=== PATIENT | male | born 1935 | race Caucasian/White ===

== ENCOUNTER 2017-07-25 10:25 | Observation (INO) | payer OTHER, MEDICARE ==
--- OUTSIDE RECORDS SUMMARY | 2017-07-25 10:28 | XMS REPORT | Clinical Summary ---
:1935 Author Organization [facility] Address [address] [place] [address] Care Team Providers Name Role Phone Asked, No Pcp Primary Care Provider Unavailable Allergies No Known Allergies Current Medications Prescription Sig. Disp. Refills Start Date End Date Status aspirin (ECOTRIN) 81 MG Take 81 mg by mouth Active enteric coated tablet daily. FOLIC ACID/MV,FE,MIN Take 1 tablet by Active (CENTRUM ORAL) mouth daily. captopril (CAPOTEN) 25 MG Take 25 mg by mouth Active tablet 2 (two) times a day. isosorbide dinitrate SR Take 40 mg by mouth Active (DILATRATE-SR) 40 mg CR daily. capsule FLUoxetine (PROzac) 20 MG Take 20 mg by mouth Active capsule nightly. furosemide (LASIX) 40 MG Take 40 mg by mouth Active tablet daily. amIODarone (PACERONE) 200 Take 100 mg by Active MG tablet mouth nightly. tiotropium (SPIRIVA) 18 Place 1 capsule Active mcg per inhalation into inhaler and capsule inhale once daily. 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 07/15/2017 [id number] / Implanted: Qty: 1 on 11/05/2015 by Minor Fuentes MD DEFIB [id number] / [id number] Defibrillator, Pacemaker Results Not on fileafter 07/24/2016 Insurance Payer Benefit Plan / Group Subscriber ID Type Phone Address AARP AARP SUPPLEMENT xxxxxxxxxxx Commercial MEDICARE MEDICARE PART A AND B xxxxxxxxxx Medicare [place], [place] [phone] [place], [place] [phone]
[2017-07-25 11:23] LABS: Absolute Lymphocytes (CBC) 0.8 K/uL (0.7-4.9); Absolute Monocytes 1.4 K/uL (0.1-1.3); Basophils % 0.6 % (0-1.3); Eosinophils % 2.7 % (0-4.4); Hematocrit 39.9 % (39.6-49.0); Lymphocytes % 8.8 % (15.3-44.8); MCH 30.4 pg (27.0-35.0); MCV 91.2 fL (80-100); MPV 8.1 fL (7.6-11.3); Monocytes % 15.1 % (3.3-12.3); RBC Red Blood Cell Count 4.37 M/uL (4.33-5.43)
[2017-07-25 11:29] LABS: Protime INR 1.16
--- NOTE | 2017-07-25 11:33 | RAD REPORT ---
EXAM DESCRIPTION: RAD - Chest Single View - 07/25/2017 11:20 am CLINICAL HISTORY: Chest pain. COMPARISON: 08/31/2016 FINDINGS: Portable technique limits examination quality. The lungs are grossly clear. The heart is moderately enlarged in size with a multilead pacer/ defibri llator device present. No displaced fractures. IMPRESSION: No acute intrathoracic process suspected.
[2017-07-25 11:35] LABS: Potassium 3.8 mEq/L (3.6-5.0)
[2017-07-25] MEDS ORDERED: FAMOTIDINE 20 MG/2 ML VIAL IV ONE (11:40)
[2017-07-25] MEDS ORDERED: NA CHLORIDE 0.9% 1,000 ML ONE (11:40)
[2017-07-25 11:42] LABS: Albumin 4.1 g/dL (3.2-5.5); Bilirubin Direct 0.3 mg/dL (0-0.2); Bilirubin Total 1.9 mg/dL (0.3-1.2); Protein, Total 6.8 g/dL (6.0-8.3)
[2017-07-25 11:53] LABS: Urine Blood NEGATIVE (NEG); Urine Glucose NEGATIVE (NEG); Urine Protein NEGATIVE (NEG); Urine Specific Gravity 1.015 (1.005-1.030); Urine pH 7.5 (5.0-7.0)
--- NOTE | 2017-07-25 11:56 | RAD REPORT ---
EXAM DESCRIPTION: CT - Head Brain Wo Cont - 07/25/2017 11:49 am CLINICAL HISTORY: Altered consciousness. COMPARISON: 08/31/2016, 07/18/2016 TECHNIQUE: All CT scans are performed using dose optimization technique as appropriate and may inclu de automated exposure control or mA/KV adjustment according to patient size. FINDINGS: No intracranial hemorrhage, hydrocephalus or extra-axial fluid collection.Mild generalized brain atrophy is present with mild periventricular and deep white matter chronic microvascular ische carol changes.No areas of brain edema or evidence of midline shift. The paranasal sinuses and mastoids are clear. The calvarium is intact. IMPRESSION: No acute intracranial abnormality.
--- NOTE | 2017-07-25 12:05 | ER ---
Nurse's Notes [facility] Name: Jakob Romero Age: 82 yrs Sex: Male : 1935 Arrival Date: 07/25/2017 Time: 10:31 Bed 24 Private MD: Diagnosis: Weakness;Syncope and collapse-near;Cardiomegaly;Dizziness and giddiness;Altered mental status, unspecified;Chest pain, unspecified Presentation: 07/25 10:33 Presenting complaint: states: "dr. henning told us to come over here because he is tw2 having chest pain and has a pacemaker and defibrillator". Transition of care: patient was not received from another setting of care. Onset of symptoms was July 25, 2017. Care prior to arrival: None. 10:33 Method Of Arrival: Wheelchair tw2 10:33 Acuity: NETTE 3 tw2 Triage Assessment: 10:36 General: Appears in no apparent distress. well groomed, Behavior is calm, cooperative, tw2 appropriate for age. Pain: Denies pain. Cardiovascular: Reports chest pain, when breathing deep, and hurt with every breath last night. Historical: - Allergies: 10:39 No Known Allergies; tw2 - Home Meds: 10:39 amiodarone 200 mg Oral tab 1 tab once daily [Active]; aspirin 81 mg Oral chew 1 tab tw2 once daily [Active]; captopril 25 mg Oral tab 1 tab 2 times per day [Active]; fluoxetine 20 mg Oral cap 1 cap once daily [Active]; furosemide 40 mg Oral tab 1 tab once daily [Active]; isosorbide dinitrate 40 mg Oral TbER 1 tab once daily [Active]; metoprolol succinate 25 mg Oral Tb24 1 tab once daily [Active]; potassium chloride 20 mEq Oral TbTQ 1 tab 2 times per day [Active]; Sprivia 18 mcg daily [Active]; - PMHx: 10:39 Prostate Cancer; Myocardial infarction; Hypertension; Depression; COPD; Angina; tw2 - PSHx: 10:39 lung, lower right lobectomy; sebatous cysts; prostate; Tonsillectomy; defibrilator and tw2 pace maker; lower right lobe of lung removed; Heart stents; - Immunization history:: Adult Immunizations up to date. - Social history:: Smoking status: Patient/guardian denies using tobacco. - Family history:: not pertinent. Screenin:53 Abuse screen: Denies threats or abuse. Denies injuries from another. Nutritional aj1 screening: No deficits noted. Tuberculosis screening: No symptoms or risk factors identified. Assessment: 10:53 General: Appears in no apparent distress. comfortable, Behavior is calm, cooperative, aj1 appropriate for age. Pain: Complains of pain in anterior aspect of left upper chest, mid-sternal area and left breast Pain does not radiate. Pain currently is 0 out of 10 on a pain scale. at worst was 10 out of 10 on a pain scale. Quality of pain is described as sharp, Pain began last night at 2300 Is intermittent, Aggravated by deep breathing. Neuro: Level of Consciousness is awake, alert, obeys commands, Oriented to person, place, time, situation, Speech is normal, Facial symmetry appears normal. Cardiovascular: Reports chest pain, diaphoresis, fatigue, nausea, dizziness, these symptoms has currently resolved Heart tones S1 S2 present Patient's skin is warm and dry. Rhythm is regular Chest pain is described as resolved, severe last night. quality is sharp, is located in left anterior chest wall substernal area began 2300 last night is aggravated by breathing. Respiratory: Airway is patent Respiratory effort is even, unlabored, Respiratory pattern is regular, symmetrical, Breath sounds are clear bilaterally. Denies shortness of breath. GI: No signs and/or symptoms were reported involving the gastrointestinal system. : No signs and/or symptoms were reported regarding the genitourinary system. EENT: No signs and/or symptoms were reported regarding the EENT system. Derm: No signs and/or symptoms reported regarding the dermatologic system. Skin is pink, warm \\T\\ dry. normal. Musculoskeletal: No signs and/or symptoms reported regarding the musculoskeletal system. Circulation, motion, and sensation intact. 11:46 Reassessment: Patient appears in no apparent distress at this time. No changes from aj1 previously documented assessment. Patient and/or family updated on plan of care and expected duration. Pain level reassessed. Patient is alert, oriented x 3, equal unlabored respirations, skin warm/dry/pink. 11:47 Reassessment: Patient transported to CT via stretcher. aj1 12:45 Reassessment: Patient and/or family updated on plan of care and expected duration. Pain aj1 level reassessed. General: Appears in no apparent distress. comfortable, Behavior is calm, appropriate for age. Pain: Denies pain. Neuro: Level of Consciousness is awake, alert, obeys commands, Speech is normal, Facial symmetry appears normal. Cardiovascular: Patient's skin is warm and dry. Rhythm is regular. Respiratory: Airway is patent Respiratory effort is even, unlabored, Respiratory pattern is regular, symmetrical. Derm: Skin is pink, warm \\T\\ dry. normal. Musculoskeletal: Circulation, motion, and sensation intact. 12:50 Reassessment: Echo at bedside. aj1 Vital Signs: 10:36 BP 103 / 57; Pulse 76; Resp 17; Temp 98.7(O); Pulse Ox 97% on R/A; Weight 95.25 kg (R); tw2 Height 6 ft. 1 in. (185.42 cm); Pain 0/10; 11:46 BP 118 / 68; Pulse 72; Resp 18; Pulse Ox 97% on R/A; aj1 12:45 BP 112 / 75; Pulse 70; Resp 18; Pulse Ox 97% on R/A; aj1 10:36 Body Mass Index 27.71 (95.25 kg, 185.42 cm) tw2 ED Course: 10:31 Patient arrived in ED. mr 10:35 Triage completed. tw2 10:37 Arm band placed on. tw2 10:39 EKG completed in triage. Results shown to . tw2 10:47 Mahnaz Renteria, RN is Primary Nurse. aj1 10:51 Gabriel Guzman MD is Attending Physician. [facility] 10:53 Patient has correct armband on for positive identification. Bed in low position. Call aj1 light in reach. Side rails up X 1. photograph enlarger on. Pulse ox on. NIBP on. 10:53 No provider procedures requiring assistance completed. Patient maintains SpO2 aj1 saturation greater than 95% on room air. 11:15 Initial lab(s) drawn, by me, sent to lab. Inserted saline lock: 22 gauge in left aj1 antecubital area, using aseptic technique. Blood collected. 11:20 XRAY Chest (1 view) In Process Unspecified. EDMS 11:49 CT Head Brain wo Cont In Process Unspecified. EDMS 11:49 CT completed. Patient tolerated procedure well. Patient moved to CT via stretcher. Patient moved back from CT. 12:03 Leonard Henning MD is Hospitalizing Provider. nestor 12:52 Echocardiogram with Doppler done by commercial hvac technician. tc Administered Medications: 11:45 Drug: Pepcid 20 mg Route: IVP; Site: left antecubital; aj1 11:46 Drug: NS 0.9% 1000 ml Route: IV; Rate: 75 ml/hr; Site: left antecubital; aj1 12:29 Drug: Lovenox 90 mg Route: Sub-Q; Site: right lower abdomen; aj1 14:42 Drug: Aspirin 81 mg Route: PO; tl3 Outcome: 12:04 Decision to Hospitalize by Provider. nestor 15:01 Patient left the ED. tl3 Signatures: Dispatcher [employer] EDMS Mahnaz Renteria, RN RN aj1 Gabriel Guzman MD MD cha Rivera, Maria mr Jones, Antonia Baez, merchandise stocker EKG Ttc Bertha Galeas RN RN tw2 Tasneem Gonzalez RN RN tl3
--- NOTE | 2017-07-25 12:05 | EDPHYS ---
Physician Documentation [facility] Name: Jakob Romero Age: 82 yrs Sex: Male : 1935 Arrival Date: 07/25/2017 Time: 10:31 Bed 24 Private MD: ED Physician Gabriel Guzman HPI: 07/25 11:19 This 82 yrs old Male presents to ER via Wheelchair with complaints of Chest nestor Pain, Dizziness, confused. 11:21 The patient or guardian reports chest pain that is located primarily in the substernal nestor area. Onset: just prior to arrival, this morning. The pain does not radiate. Associated signs and symptoms: Pertinent positives: dizziness, lightheadedness, near-syncope. The chest pain is described as a pressure. Duration: The patient or guardian reports multiple episodes, with no pattern. Modifying factors: The symptoms are alleviated by nothing. the symptoms are aggravated by nothing. Severity of pain: At its worst the pain was mild in the emergency department the pain is unchanged. Historical: - Allergies: 10:39 No Known Allergies; tw2 - Home Meds: 10:39 amiodarone 200 mg Oral tab 1 tab once daily [Active]; aspirin 81 mg Oral chew 1 tab tw2 once daily [Active]; captopril 25 mg Oral tab 1 tab 2 times per day [Active]; fluoxetine 20 mg Oral cap 1 cap once daily [Active]; furosemide 40 mg Oral tab 1 tab once daily [Active]; isosorbide dinitrate 40 mg Oral TbER 1 tab once daily [Active]; metoprolol succinate 25 mg Oral Tb24 1 tab once daily [Active]; potassium chloride 20 mEq Oral TbTQ 1 tab 2 times per day [Active]; Sprivia 18 mcg daily [Active]; - PMHx: 10:39 Prostate Cancer; Myocardial infarction; Hypertension; Depression; COPD; Angina; tw2 - PSHx: 10:39 lung, lower right lobectomy; sebatous cysts; prostate; Tonsillectomy; defibrilator and tw2 pace maker; lower right lobe of lung removed; Heart stents; - Immunization history:: Adult Immunizations up to date. - Social history:: Smoking status: Patient/guardian denies using tobacco. - Family history:: not pertinent. ROS: 11:21 Constitutional: Negative for fever, chills, and weight loss, Eyes: Negative for injury, nestor pain, redness, and discharge, ENT: Negative for injury, pain, and discharge, Neck: Negative for injury, pain, and swelling, Respiratory: Negative for shortness of breath, cough, wheezing, and pleuritic chest pain, Abdomen/GI: Negative for abdominal pain, nausea, vomiting, diarrhea, and constipation, Back: Negative for injury and pain, : Negative for injury, bleeding, discharge, and swelling, MS/Extremity: Negative for injury and deformity, Skin: Negative for injury, rash, and discoloration, Psych: Negative for depression, anxiety, suicide ideation, homicidal ideation, and hallucinations, Allergy/Immunology: Negative for hives, rash, and allergies, Endocrine: Negative for neck swelling, polydipsia, polyuria, polyphagia, and marked weight changes, Hematologic/Lymphatic: Negative for swollen nodes, abnormal bleeding, and unusual bruising. 11:21 Cardiovascular: Positive for chest pain. 11:21 Neuro: Positive for altered mental status, dizziness, weakness. Exam: 11:21 Constitutional: This is a well developed, well nourished patient who is awake, alert, nestor and in no acute distress. Head/Face: Normocephalic, atraumatic. Eyes: Pupils equal round and reactive to light, extra-ocular motions intact. Lids and lashes normal. Conjunctiva and sclera are non-icteric and not injected. Cornea within normal limits. Periorbital areas with no swelling, redness, or edema. ENT: Nares patent. No nasal discharge, no septal abnormalities noted. Tympanic membranes are normal and external auditory canals are clear. Oropharynx with no redness, swelling, or masses, exudates, or evidence of obstruction, uvula midline. Mucous membranes moist. Neck: Trachea midline, no thyromegaly or masses palpated, and no cervical lymphadenopathy. Supple, full range of motion without nuchal rigidity, or vertebral point tenderness. No Meningismus. Cardiovascular: Regular rate and rhythm with a normal S1 and S2. No gallops, murmurs, or rubs. Normal PMI, no JVD. No pulse deficits. Respiratory: Lungs have equal breath sounds bilaterally, clear to auscultation and percussion. No rales, rhonchi or wheezes noted. No increased work of breathing, no retractions or nasal flaring. Abdomen/GI: Soft, non-tender, with normal bowel sounds. No distension or tympany. No guarding or rebound. No evidence of tenderness throughout. Back: No spinal tenderness. No costovertebral tenderness. Full range of motion. Male : Normal genitalia with no discharge or lesions. Skin: Warm, dry with normal turgor. Normal color with no rashes, no lesions, and no evidence of cellulitis. MS/ Extremity: Pulses equal, no cyanosis. Neurovascular intact. Full, normal range of motion. Neuro: Awake and alert, GCS 15, oriented to person, place, time, and situation. Cranial nerves II-XII grossly intact. Motor strength 5/5 in all extremities. Sensory grossly intact. Cerebellar exam normal. Normal gait. Psych: Awake, alert, with orientation to person, place and time. Behavior, mood, and affect are within normal limits. 11:21 Chest/axilla: Inspection: normal, Palpation: tenderness, that is mild, of the left clavicle and anterior aspect of left upper chest. 11:23 Musculoskeletal/extremity: DVT Exam: No signs of deep vein thrombosis. no pain, no nestor swelling, no tenderness, negative Homans' sign noted on exam, no appreciated bluish discoloration, no erythema, no increased warmth. Vital Signs: 10:36 BP 103 / 57; Pulse 76; Resp 17; Temp 98.7(O); Pulse Ox 97% on R/A; Weight 95.25 kg (R); tw2 Height 6 ft. 1 in. (185.42 cm); Pain 0/10; 11:46 BP 118 / 68; Pulse 72; Resp 18; Pulse Ox 97% on R/A; aj1 12:45 BP 112 / 75; Pulse 70; Resp 18; Pulse Ox 97% on R/A; aj1 10:36 Body Mass Index 27.71 (95.25 kg, 185.42 cm) tw2 MDM: 10:51 Patient medically screened. [facility] 11:23 Data reviewed: vital signs, nurses notes, lab test result(s), EKG, radiologic studies, [facility] CT scan, ultrasound. 07/25 10:57 Order name: Basic Metabolic Panel; Complete Time: 12:02 aj07/25 10:57 Order name: BNP; Complete Time: 12:02 aj07/25 10:57 Order name: CBC with Diff; Complete Time: 14:27 [facility] 07/25 10:57 Order name: Ckmb; Complete Time: 12:02 [facility] 07/25 10:57 Order name: CPK; Complete Time: 12:02 [facility] 07/25 10:57 Order name: LFT's; Complete Time: 12:02 [facility] 07/25 10:57 Order name: Magnesium; Complete Time: 12:02 [facility] 07/25 10:57 Order name: PT-INR; Complete Time: 11:36 [facility] 07/25 10:57 Order name: Ptt, Activated; Complete Time: 11:36 [facility] 07/25 10:57 Order name: Troponin (emerg Dept Use Only); Complete Time: 12:02 [facility] 07/25 11:20 Order name: Urine Culture [facility] 07/25 11:21 Order name: Blood Culture Adult (2) [facility] 07/25 11:24 Order name: CBC Smear Scan; Complete Time: 14:27 [facility] 07/25 11:44 Order name: Urine Dipstick--Ancillary (enter results) 07/25 10:57 Order name: XRAY Chest (1 view); Complete Time: 11:36 [facility] 07/25 10:57 Order name: EKG; Complete Time: 10:58 [facility] 07/25 10:57 Order name: Cardiac monitoring; Complete Time: 10:57 [facility] 07/25 10:57 Order name: EKG - Nurse/Tech; Complete Time: 10:57 [facility] 07/25 10:57 Order name: IV Saline Lock; Complete Time: 11:15 [facility] 07/25 11:20 Order name: CT Head Brain wo Cont; Complete Time: 12:02 [facility] 07/25 12:03 Order name: Echo w/ Doppler [facility] 07/25 12:16 Order name: CONS Physician Consult [facility] 07/25 12:16 Order name: Troponin I [facility] 07/25 12:16 Order name: Troponin I [facility] 07/25 12:16 Order name: 2 GM Sodium; Complete Time: 14:42 [facility] 07/25 12:16 Order name: EKG Electrocardiogram [facility] 07/25 10:57 Order name: Labs collected and sent; Complete Time: 11:15 [facility] 07/25 10:57 Order name: O2 Per Protocol; Complete Time: 10:58 [facility] 07/25 10:57 Order name: O2 Sat Monitoring; Complete Time: 10:58 07/25 10:57 Order name: Urine Dipstick-Ancillary (obtain specimen); Complete Time: 11:48 Administered Medications: 11:45 Drug: Pepcid 20 mg Route: IVP; Site: left antecubital; aj1 11:46 Drug: NS 0.9% 1000 ml Route: IV; Rate: 75 ml/hr; Site: left antecubital; aj1 12:29 Drug: Lovenox 90 mg Route: Sub-Q; Site: right lower abdomen; aj1 14:42 Drug: Aspirin 81 mg Route: PO; tl3 Disposition: 07/25/17 12:04 Hospitalization ordered by Leonard Cueto for Observation. Preliminary diagnosis are Weakness, Syncope and collapse - near, Cardiomegaly, Dizziness and giddiness, Altered mental status, unspecified, Chest pain, unspecified. - Bed requested for Telemetry/MedSurg (observation). - Status is Observation. tl3 - Condition is Fair. - Problem is new. - Symptoms have improved. UTI on Admission? No Signatures: Dispatcher [employer] EDMS Mahnaz Renteria RN RN aj1 Gabriel Guzman MD MD cha Williams, Irene, RN NIYA iw Bertha Galeas RN RN tw2 Tasneem Gonzalez RN RN tl3
[2017-07-25] MEDS ORDERED: ONDANSETRON 4 MG/2 ML VIAL IV PRN (12:09)
[2017-07-25] MEDS ORDERED: IPRATROPIUM BROM 0.5MG/2.5ML NEB PRN (12:09)
[2017-07-25] MEDS ORDERED: ACETAMINOPHEN 500 MG TAB PO PRN (12:09)
[2017-07-25] MEDS ORDERED: ALBUTEROL 2.5 MG/3 ML NEB SOL NEB PRN (12:09)
[2017-07-25] MEDS ORDERED: ENOXAPARIN 100 MG/ML SYR SQ ONE (12:25)
[2017-07-25 12:38] LABS: Blood Morphology Comment NOT SEEN (NOT SEEN); Platelet Estimate ADEQ; Urine White Blood Cell Casts OK
[2017-07-25] MEDS ORDERED: ASPIRIN 81 MG CHEWABLE TABLET ONE (14:41)
[2017-07-25 15:10] VITALS: BMI 27.7
[2017-07-25] MEDS: FUROSEMIDE 20 MG/ 2ML VIAL IV SCH (16:56)
[2017-07-25] MEDS ORDERED: ENOXAPARIN 40 MG/0.4 ML SQ SCH (17:00)
--- NOTE | 2017-07-25 21:18 | RAD REPORT ---
EXAM DESCRIPTION: CT - Abdomen Pelvis Wo Contrast - 07/25/2017 9:09 pm CLINICAL HISTORY: Abdominal pain. COMPARISON: None TECHNIQUE: CT imaging of the abdomen and pelvis was performed without contrast. Solid organ, bowel a nd vascular assessment is limited due to lack of IV and oral contrast. All CT scans are performed using dose optimization technique as appropriate and may include automated exposure control or mA/KV adjustment according to patient size. FINDINGS: The lower lung horn are clear.Small hiatal hernia is noted. Pacemaker wires are present. The liver, spleen, pancreas, right adrenal gland and right kidney are within normal limits for a limi kishor non-contrast examination.Mild left adrenal gland thickening is seen. Low-density lesion is seen i n the inferior cortex of the left kidney measuring 2.5 cm, likely a benign cyst. No bowel obstruction, free air, free fluid or abscess. Scattered colonic diverticulosis is present wi thout diverticulitis. Mild fecal retention. The appendix is normal. Prostatectomy clips are seen. The osseous structures are within normal limits. IMPRESSION: No acute intra-abdominal or pelvic findings. Colonic diverticulosis without diverticulitis. A limited non-contrast examination was performed as detailed.
[2017-07-25] MEDS: CAPTOPRIL 25 MG TABLET PO SCH (21:36)
[2017-07-25] MEDS: ISOSORBIDE DINIT 20 MG TAB PO SCH (21:36)
--- NOTE | 2017-07-26 04:21 | HP ---
Date of Admission: 07/25/2017 Chief Complaint: Feeling weak, confusion, chills. History Of Present Illness: An 82-year-old male patient, who has chronic systolic congestive heart f ailure, who was doing fine in his usual state of health until this past weekend. On Monday, he worke d outside in the yard and yesterday he did not feel good at all. Later on, during later part of , he started to have some chills and excessive sweating. He was feeling warm but did not check the temperature. He was feeling cold at that time as well. He continued to have this spell and this morning he took a shower after that says it took her to dry him up as he kept on having sweatin g and chills even after the shower. He was feeling weak, somewhat confused, had trouble walking toni use he was staggering due to weakness and I was informed about this problem and the patient was advis ed to come to the emergency room where he was evaluated and admitted to the hospital. Denies any uri nary complaints. No vomiting. No diarrhea. He has some dry cough but denies any expectoration. Wh en I saw him this evening, was present with him at bedside. Review of Systems: Constitutional: As mentioned above. Neurology: As mentioned above. All other systems reviewed and negative. Medications: List reviewed. Allergies: NO KNOWN ALLERGIES. Past Surgical History: AICD placement, right lower lung lobectomy not cancer related, and surgery fo r prostate cancer. Past Medical History: Significant for gastroesophageal reflux disease, depression, COPD, chronic sys tolic congestive heart failure, prostate cancer, hypertension, and anemia. He is currently undergoin g [facility]. Family History: Not pertinent. Social History: Prior history of smoking, not at present time. Use of alcohol negative. Physical Examination: Vital Signs: Temperature 97.5, pulse rate 71, respiratory rate 16, blood pressure 178/78. General: Awake, alert, oriented, not in distress. HEENT: Head atraumatic, normocephalic. Conjunctivae nonerythematous. Sclerae white. Mouth, no thr ush or edema noted. Ears/Nose, no mass, lesion, discharge noted. Neck: Supple. No JVD, lymph nodes, bruit, thyromegaly noted. Lungs: Bilateral good equal air entry. Clear to auscultation. No rhonchi. No rales. Heart: Normal heart sounds, no murmur or gallop. Abdomen: He has very minimum left lower quadrant tenderness on abdominal exam, otherwise abdomen sof t. Bowel sounds normoactive. No guarding, rigidity, or distention. No hepatosplenomegaly. Extremities: No leg edema. No calf tenderness. Skin: No rash, ulcer, cellulitis. Lymphatics: No lymph node enlargement in neck, supraclavicular, infraclavicular region. Neuro: No focal neurological deficit. Chest: Unremarkable. External Genitalia: Deferred. Rectal: Deferred. Laboratory Data: White count 9.6, hemoglobin 13.3, platelets 165. Sodium 134, potassium 3.8, chlori de 101, bicarb 29. BUN 14, creatinine 1.09. Glucose 115. Total bilirubin 1.9, magnesium 2. SGOT 1 9, SGPT 16. Troponin less than 0.03. BNP 1538. Urinalysis negative. Diagnostic Data: CAT scan of the head, no acute intracranial changes. Chest x-ray, no acute cardiop ulmonary changes. Impression: 1.Altered mental status. 2.Generalized weakness. 3.Rule out sepsis. 4.Congestive heart failure, chronic, systolic. 5.Hypertension. 6.Prostate cancer. 7.Rule out diverticulitis. 8.Chronic obstructive pulmonary disease. 9.Gastroesophageal reflux disease. 10.Depression. Plan: Admit the patient to hospital for further evaluation and management of this problem. He is ap propriate for observation. We will repeat blood work tomorrow morning. I have ordered CAT scan of a bdomen and pelvis without IV contrast to be done tonight, and I will follow up on results. If we see any concern about diverticulitis, we will start him on empiric antibiotics. If he started to spike to have any fever, then also we will consider empiric antibiotics. Otherwise, home medications will be continued. I have advised the patient's to bring his home medication and use his own supply home medication while in the hospital. I will see him tomorrow for followup. DVT prophylaxis will b e given using Lovenox. Possible discharge to go home tomorrow depending on his condition. ANA/MODL Voice ID: [id number]
[2017-07-26 06:04] LABS: Absolute Lymphocytes (CBC) 0.9 K/uL (0.7-4.9); Absolute Monocytes 0.9 K/uL (0.1-1.3); Absolute Neutrophil 3.2 K/uL (1.8-8.0); Basophils % 0.9 % (0-1.3); Eosinophils % 15.4 % (0-4.4); Hematocrit 36.8 % (39.6-49.0); Lymphocytes % 15.2 % (15.3-44.8); MCH 30.8 pg (27.0-35.0); MCV 91.4 fL (80-100); MPV 8.2 fL (7.6-11.3); Monocytes % 15.2 % (3.3-12.3); RBC Red Blood Cell Count 4.03 M/uL (4.33-5.43)
[2017-07-26 06:17] LABS: Potassium 3.5 mEq/L (3.6-5.0)
--- NOTE | 2017-07-26 08:02 | EKG ---
Test Date: 2017-07-25 Test Time: 10:39:01 Full Stack Php Developer: SHAYNA MEASUREMENT RESULTS: Intervals: Rate: 76 CA: 112 QRSD: 220 QT: 532 QTc: 598 [place]: P: 71 CA: 112 QRS: -51 T: 124 INTERPRETIVE STATEMENTS: Rhythm consistent with VVI pacing pacemaker with occasional PVC s Atrial rhythm is most likely fibrillation, with no AV conduction Abnormal ECG Compared to ECG 09/01/2016 06:46:17 AV dual-paced complex(es) or rhythm no longer present Electronically Signed On 07-26-17 08:01:59 CDT by Oskar Saha
[2017-07-26] MEDS ORDERED: POTASSIUM CL SA 10 MEQ TAB PO ONE (08:24)
[2017-07-26 08:29] VITALS: BP 125/70; TEMP 96.7
[2017-07-26 08:38] LABS: Blood Morphology Comment NOT SEEN (NOT SEEN); Platelet Estimate ADEQ
--- NOTE | 2017-07-26 08:44 | RAD REPORT ---
EXAM DESCRIPTION: RAD - Chest Single View - 07/26/2017 6:18 am CLINICAL HISTORY: Chest pain. COMPARISON: 07/25/2017 FINDINGS: Portable technique limits examination quality. The lungs are emphysematous but grossly clear. The heart is mildly enlarged in size with a dual lead pacer device present. No displaced fractures. IMPRESSION: No acute intrathoracic process suspected.
[2017-07-26] MEDS ORDERED: POTASSIUM 25 MEQ EFFERV TAB PO SCH (09:00)
[2017-07-26] MEDS ORDERED: AMIODARONE HCL 200 MG TAB PO SCH (09:00)
--- NOTE | 2017-07-26 09:05 | ECHO ---
HEIGHT: 6 ft 1 in WEIGHT: 210 lb 0 oz DATE OF STUDY: 07/25/[address]: Gabriel Guzman MD 2-DIMENSIONAL: YES M.MODE: YES DOPPLER: YES COLOR FLOW: YES TDS: NO PORTABLE: NO DEFINITY: NO BUBBLE STUDY: NO DIAGNOSIS: CHEST PAIN CARDIAC HISTORY: CATHERIZATION: YES SURGERY: NO PROSTHETIC VALVE: NO PACEMAKER: NO MEASUREMENTS (cm) DIASTOLIC (NORMALS) SYSTOLIC (NORMALS) IVSd 1.2 (0.6-1.2) LA Diam 3.7 (1.9-4.0) LVEF 15-20% LVIDd 6.5 (3.5-5.7) LVIDs 6.0 (2.0-3.5) %FS 7% LVPWd 1.2 (0.6-1.2) Ao Diam 2.8 (2.0-3.7) 2 DIMENSIONAL ASSESSMENT: RIGHT ATRIUM: DILATED LEFT ATRIUM: DILATED RIGHT VENTRICLE: DILATED LEFT VENTRICLE: DILATED TRICUSPID VALVE: NORMAL MITRAL VALVE: NORMAL PULMONIC VALVE: NORMAL AORTIC VALVE: NORMAL PERICARDIAL EFFUSION: NONE AORTIC ROOT: NORMAL LEFT VENTRICULAR WALL MOTION: SEVERE GLOBAL HYPOKINESIS. DOPPLER/COLOR FLOW: MILD TRICUSPID REGURGITATION. COMMENTS: MILD TRICUSPID REGURGITATION. NORMAL RIGHT VENTRICULAR SYSTOLIC PRESSURE. LEFT VENTRICLE DILATATION WITH SEVERE GLOBAL HYPOKINESIS. LEFT VENTRICULAR EJECTION FRACTION 15-20%. TECHNOLOGIST: He ESPINO
[2017-07-26] MEDS: FUROSEMIDE 20 MG/ 2ML VIAL IV SCH (09:11)
[2017-07-26] MEDS: CAPTOPRIL 25 MG TABLET PO SCH (09:12)
[2017-07-26] MEDS: ISOSORBIDE DINIT 20 MG TAB PO SCH (09:12)
--- NOTE | 2017-07-26 09:52 | EKG ---
Test Date: 2017-07-26 Test Time: 09:29:42 Flex O Writer Operator: COREY MEASUREMENT RESULTS: Intervals: Rate: 73 SD: 114 QRSD: 216 QT: 490 QTc: 539 [place]: P: 89 SD: 114 QRS: 261 T: 93 INTERPRETIVE STATEMENTS: Electronic ventricular pacemaker Compared to ECG 07/25/2017 10:39:01 Ventricular premature complex(es) no longer present Electronically Signed On 07-26-17 09:51:42 CDT by Oskar Saha
[2017-07-26 09:56] VITALS: O2SAT 98
--- NOTE | 2017-07-27 03:25 | DS ---
Date of Discharge: 07/26/2017 Disposition: Discharged to go home. Physical Examination: HEENT: Unremarkable. Lungs: Clear to auscultation. Heart: Sounds normal. Abdomen: Soft, bowel sounds normal. No guarding, rigidity, tenderness, or distention. Extremities: No leg edema. Discharge Medications And Instructions: Continue all prior home medications. Discharge Followup: Follow up at my office per your scheduled appointment. History Of Present Illness: An 82-year-old male patient, who was admitted to hospital with weakness, some confusion, chills, and sweating. Please see dictated H and P for more information. Hospital Course: The patient was evaluated in the ER yesterday and admitted to the hospital. His white count was normal yesterday at 9.6. Repeat white count today 6, hemoglobin 12.4, platelets 138. Yesterday BNP 1538, today BNP 633. BUN today is 16, creatinine 0.99, glucose 105, potassium 3.5, which was corrected with oral replacement. Chest x-ray did not show any pneumonia or any other acute changes. Urinalysis was negative. Yesterday, he had a very minimum tenderness in left lower quadrant. CAT scan of abdomen and pelvis without contrast was done, which was negative for any diverticulitis or any other acute findings. This morning when I saw him, he was feeling fine. He was afebrile. He felt like he was back to his normal self. There was no evidence of any infection anywhere and decision was made to discharge him to go home. Final Diagnoses: 1. Altered mental status. 2. Generalized weakness. 3. Congestive heart failure, chronic, systolic. 4. Hypertension. 5. Prostate cancer. 6. Chronic obstructive pulmonary disease. 7. Gastroesophageal reflux disease. 8. Depression. ANA/MODL Voice ID: [id number] Report ID: [id number] NETTA
== END 2017-07-26 11:13 | disposition home or self-care (01) ==
LOC: ER 10:25 → ERHOLD 12:06 → 4TH 14:41
PROVIDERS: ADMIT Internal Medicine; ATTEND Internal Medicine
DX: R41.82 Altered mental status, unspecified (principal); I50.22 Chronic systolic (congestive) heart failure; I10 Essential (primary) hypertension; C61 Malignant neoplasm of prostate; J44.9 Chronic obstructive pulmonary disease, unspecified; K21.9 Gastro-esophageal reflux disease without esophagitis; F32.9 Major depressive disorder, single episode, unspecified; R53.1 Weakness
CPT/HCPCS: 36415; 70450; 71045 ×2; 74176; 80048 ×2; 80076; 81003; 82550; 82553; 83735; 83880 ×2; 84484 ×3; 85025 ×2; 85610; 85730; 87040 ×2; 87086; 87088; 93005 ×2; 93306; 96372; 96374; 99285; G0378 ×2; J1650; J1940 ×2; J7030; 77385

== ENCOUNTER 2018-06-29 13:34 | Inpatient (IN) | payer OTHER, MEDICARE ==
--- OUTSIDE RECORDS SUMMARY | 2018-06-29 13:49 | XMS REPORT | Clinical Summary ---
:1935 Author Organization [facility] Address [address] [place] [address] Care Team Providers Name Role Phone Asked, No Pcp Primary Care Provider Unavailable Allergies No Known Allergies Medications Medication Sig Dispensed Refills Start Date End Date Status aspirin (ECOTRIN) 81 Take 81 mg by 0 Active MG enteric coated mouth daily. tablet FOLIC ACID/MV,FE,MIN Take 1 tablet by 0 Active (CENTRUM ORAL) mouth daily. captopril (CAPOTEN) 25 Take 25 mg by 0 Active MG tablet mouth 2 (two) times a day. isosorbide dinitrate Take 40 mg by 0 Active SR (DILATRATE-SR) 40 mouth daily. mg CR capsule FLUoxetine (PROzac) 20 Take 20 mg by 0 Active MG capsule mouth nightly. furosemide (LASIX) 40 Take 40 mg by 0 Active MG tablet mouth daily. amIODarone (PACERONE) Take 100 mg by 0 Active 200 MG tablet mouth nightly. tiotropium (SPIRIVA) Place 1 capsule 0 Active 18 mcg per inhalation into inhaler and capsule inhale once daily. Active Problems Not on file Social History Tobacco Use Types Packs/Day Years Used Date Former Smoker Comments: quit 1998 Alcohol Use Drinks/Week oz/Week Comments Yes quit long time, no drinking for 12 years Sex Assigned at Date Recorded Not on file Job Start Date Occupation Industry Not on file Not on file Not on file Travel History Travel Start Travel End No recent travel history available. Last Filed Vital Signs Not on file Plan of Treatment Not on file Implants Implanted Type Area First Aid Trainer Device Shelf Model / Identifier Expiration Serial / Date Lot [employer] Next Generation Tomb Maker Helper-D 40 - [id number] - [id number] CARDIAC N/A: N/A [facility] [employer] 07/15/2017 [id number] / Implanted: Qty: 1 on 11/05/2015 by Minor Fuentes MD DEFIB [id number] / [id number] Defibrillator, Pacemaker Results Not on fileafter 06/28/2017 Insurance Payer Benefit Plan / Group Subscriber ID Type Phone Address AARP AARP SUPPLEMENT xxxxxxxxxxx Commercial MEDICARE MEDICARE PART A AND B xxxxxxxxxx Medicare [place], [place] ([place]) [place] [address] Advance Directives Patient has advance care planning documents on file. For more information, please contact:[employer] [address] [place] [address]
--- OUTSIDE RECORDS SUMMARY | 2018-06-29 13:50 | XMS REPORT | CCD ---
:1935 Author Organization [facility] Outpatient [facility] - [facility] Team Providers Name Role Phone Rafael Reyes Consulting Provider Allergies, Adverse Reactions, Alerts Substance Reaction Status NKDA Active Problem List Condition Effective Dates Status Pain Active
--- OUTSIDE RECORDS SUMMARY | 2018-06-29 13:50 | XMS REPORT | Continuity of Care Document ---
:1935 Author Organization Interface Problems Problem Status Onset Classification Date Comments Source Date Reported R06.02 - Active 04/20/19 [facility] SHORTNESS OF 17 [facility] BREATH Depressive Active 09/03/19 Problem 08/11/2017 Data OPID disorder<sup>9, 15 migrated [facility] 10</sup> from Count includes the [facility] on 10/22/14. UNK Active 02/22/20 [facility] [place] 724.02/724.4/72 Active 02/22/20 4.2 14 [place] SURGERY Active 02/22/20 14 [place] PAIN AROUND EYE Active 06/18/[address] Trochanteric Active 02/01/20 Problem 08/11/2017 Data OPID bursitis<sup>16 13 migrated [facility] </sup> from Count includes the [facility] on 09/13/14. Acute Resolved 12/27/19 Problem 08/11/2017 Data OPID pharyngitis<sup 13 migrated Jesus >1, 2</sup> from Count includes the [facility] on 10/31/14. Cellulitis and Resolved 09/18/19 Problem 08/11/2017 Data OPID abscess of 13 migrated [facility] upper from Count includes the [facility] arm<sup>4, [facility]ity Group 5</sup> on 10/31/14. 401.9 - Active 08/18/19 OP[facility] HYPERTENSION NO 13 [facility] Defibrillator, Resolved 11/25/19 Problem 08/11/2017 [facility] device 10 [facility] Lobectomy of Resolved 04/17/19 Problem 08/11/2017 [facility] lung 06 [facility] Prostate ca Resolved 04/17/19 Problem 08/11/2017 [facility] 01 [facility] Pain Active Problem 08/19/2012 OP[facility] Pain Active Problem 04/23/2016 OPID Axel OPID [facility] CAD - Coronary Active Problem 08/11/2017 [facility] artery disease [facility] Carcinoma of Active Problem 08/11/2017 Data OPID lung<sup>3</sup migrated [facility] > from Medical [facility]ity [facility] on 09/13/14. Chronic Active Problem 08/11/2017 Data OPID obstructive migrated [facility] lung from GE Medical disease<sup>6</ [facility]ity [facility] sup> on 09/13/14. COPD - Chronic Active Problem 08/11/2017 [facility] obstructive [facility] disease Group Coronary Active Problem 08/11/2017 Data OPID arteriosclerosi migrated [facility] s<sup>7</sup> from Medical [facility] on 09/13/14. Coronary Active Problem 08/11/2017 Data [facility] atherosclerosis [facility] <sup>8</sup> from Medical [facility] on 09/13/14. Dyslipidemia<brandt Active Problem 08/11/2017 Data OPID p>11</sup> [facility] from [facility] on 09/13/14. GERD - Active Problem 08/11/2017 OPID Gastro-esophage Jesus al reflux Medical disease Group HTN - Active Problem 08/11/2017 [facility] Hypertension [facility] Hypertensive Active Problem 08/11/2017 Data OPID disorder<sup>12 migrated [facility] </sup> from Medical [facility]ity [facility] on 09/13/14. Malignant tumor Active Problem 08/11/2017 Data OPID of [facility] prostate<sup>13 from Medical </sup> Centricity Group on 09/13/14. Obesity Active Problem 08/11/2017 [facility] Pain Active Problem 08/11/2017 OPID Axel, Medical Group Pinched Active Problem 08/11/2017 back OPID nerve<sup>14</s Jesus up> Medical Group Pulmonary Active Problem 08/11/2017 Data OPID emphysema<sup>1 migrated [facility] 5</sup> from Medical [facility] on 09/13/14. Shortness of Resolved Problem 08/11/2017 OPID breath on [facility] exertion Medical Group Pinched Active Problem 03/01/2014 1back nerve<sup>1</brandt [place] p> SPIN STEN,LUMBR Active WO LORETO [facility] LUMBOSACRAL Active NEURITIS NOS [facility] LUMBAGO Active [facility] Medications Medication Details Route Status Patient Ordering Order Source Instructions Provider Date tiotropium See Active Medical 0.018 MG/ACTUAT Instructions, # 2018 Group Inhalant Powder 30 unknown unit, [Spiriva] INHALE ONE CAPSULE BY MOUTH EVERY DAY, Pharmacy: [place] [id number] Atropine 0.5 mg, 5 mL, Inactive Route: IVP, Drug 2013 [facility] form: INJ, ONCE, Dosing Weight 100, kg, PRN Bradycardia, Start date: 02/25/14 21:56:00, for symptomatic bradycardia HR Nitroglycerin 0.4 mg, 1 tab, Inactive 0.4 MG Route: SL, Drug 2013 [facility] Sublingual form: TAB, Tablet Q5Min, Dosing Weight 100, kg, PRN Chest Pain, Start date: 02/25/14 21:55:00, Duration: 30 day, Stop date: 03/27/14 21:54:00Notes: (Same as:Nitroquick, Nitrostat) "Do Not Crush" Sublingual tablet Famotidine 20 20 mg, 1 tab, No Longer MG Oral Tablet Route: PO, Drug Active 2013 [facility] [Pepcid] form: TAB, Q12H, Dosing Weight 100, kg, Start date: 02/25/14 21:00:00, Duration: 30 day, Stop date: 03/27/14 9:00:00Notes: (Same as: Pepcid) Dexamethasone 4 mg, 1 mL, No Longer Route: IVP, Drug Active 2013 [facility] form: INJ, Q6H, Dosing Weight 100, kg, Start date: 02/25/14 18:00:00, Duration: 30 day, Stop date: 03/27/14 12:00:00Notes: Concentration: 4mg/ml Cefazolin 1 gm, 100 mL, No Longer Route: IVPB, Active 2013 [facility] Drug form: INJ, ABXQ8H, Dosing Weight 100, kg, Start date: 02/25/14 15:00:00, Duration: 30 day, Stop date: 03/27/14 7:00:00 Zofran 4 mg, 2 mL, No Longer Route: IV, Drug Active 2013 [facility] form: INJ, Q8H, Dosing Weight 100, kg, PRN Nausea, Start date: 02/25/14 14:14:00, Duration: 30 day, Stop date: 03/27/14 14:13:00Notes: (Same as: Zofran) tramadol 100 mg, 2 tab, No Longer hydrochloride Route: PO, Drug Active 2013 [place] 50 MG Oral form: TAB, Q4H, Tablet Dosing Weight 100, kg, PRN Pain Score 6-10, Start date: 02/25/14 14:14:00, Duration: 30 day, Stop date: 03/27/14 14:13:00, >50 kg; Pediatric dosingSpecial Instructions: >50 kg; Pediatric dosingNotes: Not to exceed 400mg/day. (Same As: Ultram) Ancef 1 gm, Route: Inactive IVPB, ONCE, 2013 Dosing Weight 100, kg, Start date: 02/25/14 13:04:00, Duration: 1 doses or times, Stop date: 02/25/14 13:04:00 Calcium 1,000 mL, Rate: Inactive Chloride 0.0014 25 ml/hr, Infuse 2013 MEQ/ML / over: 40 hr, Potassium Route: IV, Chloride 0.004 Dosing Weight MEQ/ML / Sodium 100 kg, Total Chloride 0.103 Volume: 1,000, MEQ/ML / Sodium Start date: Lactate 0.028 02/25/14 MEQ/ML 13:01:00, Injectable Duration: 30 Solution day, Stop date: 03/27/14 13:00:00 Omeprazole 0 Refill(s) Active 2013 [facility] Potassium 20 mEq, 1 tab, Inactive [place] Chloride 20 MEQ Route: PO, Drug 2013 Medical Extended form: ERTAB, Center Release Tablet Daily, Dosing Weight 100, kg, Start date: 06/18/13 9:00:00, Duration: 30 day, Stop date: 07/17/13 9:00:00 Potassium 20 mEq, Route: Inactive [place] Chloride IVPB, ONCE, 2013 Medical Dosing Weight Center 100, kg, Start date: 06/17/13 16:23:00, Stop date: 06/17/13 16:23:00 Magnesium 2 gm, Route: IV, Inactive Phani Sulfate Drug form: INJ, 2013 Medical ONCE, Dosing Center Weight 100, kg, Total dose=2 gm, Start date: 06/17/13 16:09:00, Duration: 1 doses or times, Stop date: 06/17/13 16:09:00 Flumazenil 0.2 mg, 2 mL, No Longer Phani Route: IVP, Drug Active 2013 [facility] form: INJ, PRN, Center Dosing Weight 100, kg, PRN Benzodiazepine Reversal, Initial dose, Start date: 06/17/13 15:04:00, Duration: 1 day, Stop date: 06/18/13 15:03:00(Same as: Romazicon) Ondansetron 4 mg, 2 mL, No Longer Phani Route: IVP, Drug Active 2013 Medical form: INJ, ONCE, Center Dosing Weight 100, kg, PRN Nausea & Vomiting, Start date: 06/17/13 15:04:00(Same as: Zofran) Naloxone 0.04 mg, 0.1 mL, No Longer Phani Route: IVP, Drug Active 2013 Medical form: INJ, Center Q2MIN, Dosing Weight 100, kg, PRN Narcotic Reversal, Start date: 06/17/13 15:04:00, Duration: 8 doses or times, Stop date: 06/18/13 0:00:00Same as Narcan Hydromorphone 0.5 mg, 0.25 mL, No Longer Phani Route: IVP, Drug Active 2013 Medical form: INJ, Center Q5Min, Dosing Weight 100, kg, PRN Pain Score 7-10, Start date: 06/17/13 15:04:00, Duration: 4 doses or times, Stop date: 06/18/13 0:00:00Same as: Dilaudid Labetalol 10 mg, 2 mL, No Longer Phani Route: IVP, Drug Active 2013 Medical form: INJ, Center Q5Min, Dosing Weight 100, kg, PRN Elevated BP, Start date: 06/17/13 15:04:00, Duration: 5 doses or times, Stop date: 06/18/13 0:00:00 Ancef 2 gm, Route: Inactive [facility] IVPB, ONCE, 2013 Medical Dosing Weight Center 100, kg, Priority: Routine, Start date: 06/17/13 12:49:00, Duration: 1 doses or times, Stop date: 06/17/13 12:49:00 Prozac 0 Refill(s) Active [facility] [address] [facility] Niacin 0 Refill(s) Active [facility] [address] [facility] Isosorbide 0 Refill(s) Active [facility] Dinitrate [address] [facility] Captopril 0 Refill(s) Active [facility] [address] [facility] Lasix 0 Refill(s) Active [facility] [address] [facility] Spiriva 0 Refill(s) Active [facility] [address] [facility] Aspirin / 0 Refill(s) Active [facility] Calcium [address] [place] [address] Center Allergies, Adverse Reactions, Alerts Substance Category Reaction Severity Reaction Status Date Comments Source type Reported Immunizations Immunization Date Site Status Last Comments Source Given Updated influenza virus Right completed [facility] OPID vaccine, 5 Deltoid ALEX Lee inactivated Medical Group Hx influenza Right upper completed [facility] Admin Note: OPID vaccine-unspecif 4 arm Pt got flu ALEX Lee ied<sup>1</sup> vaccine at Medical PCP'S OFFICE. Group Hx pneumococcal Right arm completed [facility] Admin Note: [facility] vaccine<sup>3</s 2 Pt got PNA ALEX Lee up> vaccine at Medical pcp office Group Hx pneumococcal Right arm completed Geena 2Admin Note: [place] vaccine<sup>2</s 2 Pt got PNA up> vaccine at pcp office Hx influenza completed GE Result OPID vaccine-unspecif 2 Comment: ALEX Lee ied<sup>2</sup> historical. Medical Migrated from Group OBS ; Data migrated from [employer] on 05/19/2015. pneumococcal completed GE Result OPID 23-valent 0 Comment: ALEX Lee vaccine<sup>4</s pneumovax. Medical up> Migrated from Group OBS ; Data migrated from [employer] on 05/19/2015. Results Order Name Results Value Reference Date Interpretation Comments Source Range Chest 2 Chest 2 EXAM: XR CHEST 2 VIEWS 04/20 - [facility] views DX views - [place] DATE: 04/20/2016 2:24 PM MANAGER INVENTORY CONTROL Read by: Timur Gray MD Dictated Date/time: 04/20/16 16:02 Electronically Signed by: Timur Gray MD 04/20/16 16:09 FINAL REPORT INDICATION: R06.02 Shortness of breath COMPARISON: 08/17/2012 TECHNIQUE: PA and lateral chest radiographs FINDINGS: An automatic implantable cardiac defibrillator device is present and grossly unchanged with electrodes in the region of the right ventricular apex, right atrial appendage and right coronary si nus. A metal object is unchanged in the region of the right diaphragmatic dome medially. The bones are mildly osteopenic with mild degenerative changes in the thoracic spine. The heart is enlarged CT ratio of 21.4/33.7. This has increased. No mediastinal or hilar masses are present. There is mild prominence of the descending thoracic aorta without obvious aneurysm. There is worsening interstitial prominence in both lung bases, right greater than left. In addition there is pleural thickening along the right inferior pleural border versus small right pleural effusio n. A focus of tenting is present over the right hemidiaphragm laterally on the PA views. A linear density extends obliquely from the right hilum towards the right upper lung. This is slightly more dense than on the comparison study but grossly unchanged. IMPRESSION: 1. Marked cardiomegaly. 2. Localized pleural effusion versus pleural thickening in the right lower lung laterally. This represents a change from the comparison study. 3. Prominence of the pulmonary interstitium in the lung bases, right greater than left. Correlate for pulmonary interstitial edema versus infection. Brain w/wo Brain w/wo EXAM: CT BRAIN WITH AND WITHOUT CONTRAST 03/15 - OPID contrast contrast CT /2015 - [facility] CT DATE: 03/15/2016 12:29 PM MANAGER INVENTORY CONTROL Read by: Jackie Choi MD Dictated Date/time: 03/16/16 09:39 Electronically Signed by: Jackie Choi MD 03/16/16 09:52 FINAL REPORT INDICATION: cad, copd COMPARISON: None. TECHNIQUE: Routine axial images of the brain were obtained with and without intravenous contrast. IV contrast: 100 mL Visipaque 320. FINDINGS: No acute intracranial hemorrhage or mass effect. 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 Hypodensities in the periventricular white matter likely represent chronic microangiopathic change. Mild generalized cerebral volume loss with compensatory enlargement of ventricles and sulci. The basal cisterns are patent. No abnormal parenchymal or meningeal enhancement. Atherosclerotic calcificati ons in the carotid siphons. The visualized paranasal sinuses and mastoids are clear. IMPRESSION: No acute cranial abnormality. No abnormal parenchymal enhancement. Chronic microangiopathic changes. Mild generalized cerebral volume loss. BLOOD BANK Antibody Negative 02/[address] [facility] (02/25/14 1:06 PM) BLOOD BANK ABO/Rh A POS 02/25 RESULTS /2013 [facility] HEMATOLOGY RBC 4.35 M/CMM 4.70 - 02/[address] [facility] HEMATOLOGY Hgb 13.0 g/dL 14.0 - 02/[address] [facility] HEMATOLOGY WBC 9.8 K/CMM 3.7 - 10.4 02/25 [facility] HEMATOLOGY Hct 39.2 % 42.0 - 02/25 54.0 /2013 [facility] HEMATOLOGY MCV 90.1 fL 80.0 - 02/25 94.0 /2013 [facility] HEMATOLOGY MCH 29.8 pg 27.0 - 02/25 31.0 /2013 [facility] HEMATOLOGY MCHC 33.1 g/dL 32.0 - 02/25 36.0 /2013 [facility] HEMATOLOGY RDW 14.4 % 11.5 - 02/[address] [facility] HEMATOLOGY Platelet 187 K/CMM 133 - 450 02/25 [facility] HEMATOLOGY MPV 8.0 fL 7.4 - 10.4 02/25 /2013 [facility] HEMATOLOGY Basophils 0.8 % 0.0 - 1.0 02/25 /2013 [facility] HEMATOLOGY Eosinophils 10.6 % 0.0 - 4.0 02/25 [facility] HEMATOLOGY Eosinophils 1.0 K/CMM 0.0 - 0.5 02/25 MH # /2013 [facility] HEMATOLOGY Basophils # 0.1 K/CMM 0.0 - 0.2 02/25 [facility] HEMATOLOGY Monocytes # 1.1 K/CMM 0.0 - 0.8 02/25 [facility] HEMATOLOGY Segs-Bands # 6.1 K/CMM 1.5 - 8.1 02/25 [facility] HEMATOLOGY Lymphocytes 1.4 K/CMM 1.0 - 5.5 02/25 # /2013 [facility] HEMATOLOGY Segs 62.8 % 45.0 - 02/[address] [facility] HEMATOLOGY Monocytes 11.0 % 2.0 - 12.0 02/25 [facility] HEMATOLOGY Lymphocytes 14.8 % 20.0 - 02/[address] [facility] CHEM PANEL eGFR 87 06/17 2Result Comment: The eGFR is calculated using the CKD-EPI formula. In most young, healthy individuals the eGFR will be >90 mL/ min/1.73m2. The eGFR declines with age. An eGFR of 60-89 may be normal in [facility] mL/min/1.7 some populations, particularly the elderly, for whom the CKD-EPI formula has not been extensively validated. Use of the eGFR is not recommended in the following populations: [address] Individuals with unstable creatinine concentrations, including patients and those with serious co-morbid conditions. Patients with extremes in muscle mass or diet. The data above are obtained from the National Kidney Disease Education Program (NKDEP) which additionally recommends that when the eGFR is used in patients with extremes of body mass index for purposes of drug dosing, the eGFR should be multiplied by the estimated BMI. CHEM PANEL Creatinine 0.8 mg/dL 0.5 - 1.4 06/[address] [facility] CHEM PANEL Sodium Lvl 140 meq/L 135 - 145 06/[address] [facility] CHEM PANEL Potassium 5.2 meq/L 3.5 - 5.1 06/17 1Result Comment: [facility] Moderately Hemolyzed. CHEM PANEL Calcium Lvl 8.4 mg/dL 8.5 - 10.5 06/[address] [facility] CHEM PANEL Chloride Lvl 108 meq/L 95 - 109 06/[address] [facility] CHEM PANEL CO2 27 meq/L 24 - 32 06/[address] [facility] CHEM PANEL AGAP 10.2 meq/L 10.0 - 06/[address] [facility] CHEM PANEL Glucose Lvl 87 mg/dL 70 - 99 06/17 3Interpretive Data: Adult reference range values reflect the clinical guidelines of the [place] [employer]. [facility] Center CHEM PANEL BUN 12 mg/dL 7 - 22 06/17 [facility] Hip min 2 Hip min 2 EXAM: Right hip series. 04/22 - OPID views [facility] /2013 - [place] DATE: April 22, 2013. Read by: Jackie Choi Dictated Date/time: 04/22/13 12:48 Electronically Signed by: Jackie Choi MD 04/22/13 12:49 FINAL REPORT INDICATION: Pain in joint involving pelvic region and thigh COMPARISON: None. TECHNIQUE: 2 views the right hip. FINDINGS: No acute fracture or dislocation. The right hip joint space appears preserved. No osseous erosions. Surgical clips are seen in the visualized portion of the pelvis. Vascular calcifications are seen in t he pelvis and proximal aspect of the right lower extremity. IMPRESSION: 1. No acute osseous abnormality. 2. Peripheral vascular calcifications are seen in the pelvis and visualized portion the right lower extremity particularly in the region of the right common femoral artery. Findings can be further asses sed with arterial Doppler if clinically indicated. Vital Signs Vital Sign Value Date Comments Source Temperature Oral (F) 97.6 F 02/26/2014 [facility] Heart Rate 87 02/26/2014 [facility] Respitory Rate 19 02/26/2014 [facility] Systolic (mm Hg) 156 02/26/2014 [facility] Diastolic (mm Hg) 64 02/26/2014 [facility] Respitory Rate 19 02/26/2014 [facility] Systolic (mm Hg) 137 02/26/2014 [facility] Diastolic (mm Hg) 77 02/26/2014 [facility] Heart Rate 80 02/26/2014 [facility] Temperature Oral (F) 98.4 F 02/26/2014 [facility] Diastolic (mm Hg) 74 02/26/2014 [facility] Systolic (mm Hg) 136 02/26/2014 [facility] Heart Rate 85 02/26/2014 [facility] Respitory Rate 16 02/26/2014 [facility] Temperature Oral (F) 98.4 F 02/26/2014 [facility] BMI Calculated 29.09 02/26/2014 [facility] Height 185.42 cm 02/26/2014 [facility] Weight 100 02/26/2014 [facility] Height 185.42 cm 02/25/2014 [facility] Weight 100 02/25/2014 [facility] BMI Calculated 29.09 02/25/2014 [facility] Respitory Rate 18 06/17/2013 [facility] Systolic (mm Hg) 144 06/17/2013 [facility] Diastolic (mm Hg) 70 06/17/2013 [facility] Systolic (mm Hg) 119 06/17/2013 [facility] Respitory Rate 15 06/17/2013 [facility] Diastolic (mm Hg) 66 06/17/2013 [facility] Systolic (mm Hg) 117 06/17/2013 [facility] Respitory Rate 16 06/17/2013 [facility] Diastolic (mm Hg) 67 06/17/2013 [facility] Heart Rate 68 06/17/2013 [facility] Weight 100 06/17/2013 [facility] Height 185.42 cm 06/17/2013 [facility] BMI Calculated 29.09 06/17/2013 [facility] Encounters Location Location Encounter Encounter Reason Attending ADM DC Status Source Details Type Number For Provider Date Date Visit OD [id number] 401.9 - CARINE 08/17 Active OPID 0 HYPERTEN [facility] OBS Day [id number] _MAPID:E Luis 06/17 06/18 [facility] [id number] [facility] /2013 [facility] 1 [id number] [facility] OBS [id number] Wilber 02/26 02/26 [facility] Observation 2 [facility] Outpatient [id number] CARINE 10/[address] [facility] 1 [facility] [id number] CARINE 01/[address] [facility] 2 [facility] [id number] CARINE07/[address] [facility] 3 [facility] [id number] CARINE 10/[address] [facility] 4 [facility] [id number] CARINE 10/[address] [facility] [place] [facility] [id number] NURSE VISIT 12/[address] [facility] [place] [facility] [id number] CARINE 01/[address] [facility] [id number] CARINE 03/[address] [facility] 8 [facility] Outpt Diag [id number] Carine 03/15 03/16 [facility] 2 [facility] Outpt Diag [id number] Farshad 04/20 04/21 [facility] 3 [facility] Phone [phone] 08/07 08/09 Primary Message [facility] Procedures Procedure Code Date Perfomer Comments Source ACD - Automatic [id number] 11/24/2009 [facility] cardiac [place] defibrillator procedure ACD - Automatic [id number] 11/24/2009 Medical cardiac Group defibrillator procedure ACD - Automatic [id number] 11/24/2009 [facility] cardiac [facility] defibrillator procedure Lobectomy of lung [id number] 04/17/2005 [facility] [place] Lobectomy of lung [id number] 04/17/2005 Medical Group Lobectomy of lung [id number] 04/17/2005 [facility] Lobectomy of lung [id number] 04/17/2005 [facility] Bronchoscopy [id number] 04/17/2003 [facility] [place] Bronchoscopy [id number] 04/17/2003 Medical Group Bronchoscopy [id number] 04/17/2003 [facility] Bronchoscopy [id number] 04/17/2003 [facility] Prostatectomy [id number] 04/17/2000 [facility] Prostatectomy [id number] 04/17/2000 Medical Group Prostatectomy [id number] 04/17/2000 [place] Prostatectomy [id number] 04/17/2000 [facility] Stent placement [id number] [facility] Stent placement [id number] [facility] Stent placement [id number] [facility] ACD - Automatic [id number] [facility] defibrillator procedure Stent placement [id number] [facility]
--- OUTSIDE RECORDS SUMMARY | 2018-06-29 13:50 | XMS REPORT | CCD ---
:1935 Author Organization [facility] Outpatient Imaging - [facility] Team Providers Name Role Phone Rafael Reyes Consulting Provider Allergies, Adverse Reactions, Alerts Substance Reaction Status NKDA Active Problem List Condition Effective Dates Status Pain Active
--- NOTE | 2018-06-29 15:03 | RAD REPORT ---
EXAM DESCRIPTION: RAD - Chest Pa And Lat (2 Views) - 06/29/2018 2:24 pm CLINICAL HISTORY: Shortness of breath COMPARISON: April 18, 2018 TECHNIQUE: PA and lateral views of the chest were obtained. FINDINGS: The lungs are fibrotic as a baseline. Right apical pleural thickening present. Defibrillat or is in place. Lung markings are increased slightly in the lower right lung field suspicious for jeoy y early pneumonia. No new or progressive left lung field finding. Heart size is normal and central vasculature is within normal limits. No pneumothorax or large pleur al effusion. No acute bony finding noted. No aortic abnormality. IMPRESSION: Increased opacification in the right lung base suspicious for early infiltrate superimpo sed on significant chronic pleural and parenchymal disease.
[2018-06-29 16:28] LABS: Absolute Lymphocytes (CBC) 0.7 K/uL (0.7-4.9); Absolute Monocytes 0.6 K/uL (0.1-1.3); Absolute Neutrophil 4.6 K/uL (1.8-8.0); Basophils % 0.6 % (0-1.3); Eosinophils % 8.3 % (0-4.4); Hematocrit 39.2 % (39.6-49.0); Lymphocytes % 10.5 % (15.3-44.8); MPV 8.4 fL (7.6-11.3); Monocytes % 9.9 % (3.3-12.3); RBC Red Blood Cell Count 4.27 M/uL (4.33-5.43)
[2018-06-29 16:29] LABS: Protime INR 1.18
[2018-06-29 16:45] LABS: Albumin 3.9 g/dL (3.4-5.0); Bilirubin Direct 0.3 mg/dL (0-0.2); Bilirubin Total 0.8 mg/dL (0.2-1.0); Magnesium 2.5 mg/dL (1.8-2.4); Protein, Total 7.3 g/dL (6.4-8.2); Troponin (Emerg Dept Use Only) 0.02 ng/mL (0.0-0.045)
--- NOTE | 2018-06-29 17:44 | ER ---
Nurse's Notes [facility] Name: Jakob Romero Age: 83 yrs Sex: Male : 1935 Arrival Date: 06/29/2018 Time: 13:38 Bed 26 Private MD: Ruiz Cueto C Diagnosis: Pneumonia, unspecified organism Presentation: 06/29 13:54 Presenting complaint: Patient states: SOB and dizziness x 3 days. Transition of care: sv patient was not received from another setting of care. Onset of symptoms was June 26, 2018. Care prior to arrival: None. 13:54 Method Of Arrival: Ambulatory sv 13:54 Acuity: NETTE 3 sv 18:20 Risk Assessment: Do you want to hurt yourself or someone else? Patient reports no rv desire to harm self or others. Initial Sepsis Screen: Does the patient meet any 2 criteria? No. Patient's initial sepsis screen is negative. Does the patient have a suspected source of infection? No. Patient's initial sepsis screen is negative. Triage Assessment: 18:20 General: Appears in no apparent distress. comfortable. Respiratory: Reports shortness rv of breath at rest Onset: The symptoms/episode began/occurred gradually, the patient has mild shortness of breath. Historical: - Allergies: 13:55 No Known Allergies; sv - Home Meds: 18:26 aspirin 81 mg Oral chew 1 tab once daily [Active]; Sprivia 18 mcg daily [Active]; rv furosemide 40 mg Oral tab 1 tab once daily [Active]; metoprolol succinate 25 mg Oral Tb24 1 tab once daily [Active]; fluoxetine 20 mg Oral cap 1 cap once daily [Active]; - PMHx: 13:55 Angina; COPD; Depression; Hypertension; Myocardial infarction; Prostate Cancer; sv - PSHx: 13:55 lung, lower right lobectomy; sebatous cysts; prostate; Tonsillectomy; defibrilator and sv pace maker; lower right lobe of lung removed; Heart stents; - Immunization history:: Adult Immunizations up to date. - Social history:: Smoking status: unknown. - Ebola Screening: : Patient negative for fever greater than or equal to 101.5 degrees Fahrenheit, and additional compatible Ebola Virus Disease symptoms Patient denies exposure to infectious person Patient denies travel to an Ebola-affected area in the 21 days before illness onset. Screenin:19 Abuse screen: Denies threats or abuse. Denies injuries from another. Nutritional rv screening: No deficits noted. Tuberculosis screening: No symptoms or risk factors identified. Fall Risk None identified. Assessment: 18:18 General: Appears in no apparent distress. comfortable, Behavior is calm, cooperative. rv Pain: Denies pain. Neuro: Level of Consciousness is awake, alert, obeys commands, Oriented to person, place, time, situation. Cardiovascular: Rhythm is regular. Respiratory: Airway is patent Respiratory effort is labored, Breath sounds with crackles bilaterally. GI: No signs and/or symptoms were reported involving the gastrointestinal system. : No signs and/or symptoms were reported regarding the genitourinary system. EENT: No signs and/or symptoms were reported regarding the EENT system. Derm: Skin is intact, is fragile, with poor turgor. Musculoskeletal: No signs and/or symptoms reported regarding the musculoskeletal system. Vital Signs: 13:55 BP 118 / 75; Pulse 73; Resp 22; Temp 97.8; Pulse Ox 100% ; Weight 96.16 kg; Height 6 sv ft. 1 in. (185.42 cm); Pain 0/10; 15:00 BP 120 / 89 LA; Pulse 73; Resp 22 S; Pulse Ox 97% on 2 lpm NC; rv 16:30 BP 126 / 94 LA; Pulse 73; Resp 21 S; Pulse Ox 99% on R/A; rv 17:26 Pulse Ox 93% on R/A; ca1 18:00 BP 124 / 73 LA; Pulse 74; Resp 18 S; Pulse Ox 100% on Nebulizer Mask; rv 18:30 BP 135 / 88 LA; Pulse 81; Resp 25 S; Pulse Ox 96% on 2 lpm NC; rv 19:00 BP 139 / 92 LA; Pulse 81; Resp 18 S; Pulse Ox 95% on 2 lpm NC; rv 20:00 BP 133 / 98 LA; Pulse 98; Resp 24 S; Pulse Ox 97% on 2 lpm NC; rv 13:55 Body Mass Index 27.97 (96.16 kg, 185.42 cm) sv ED Course: 13:38 Patient arrived in ED. mr 13:39 Ruiz Cueto MD is Private Physician. mr 13:54 Triage completed. sv 13:55 Arm band placed on. sv 14:20 Patient moved to radiology AMBULATORY. sw 14:24 Chest Pa And Lat (2 Views) XRAY In Process Unspecified. EDMS 14:29 X-ray completed. Patient tolerated procedure well. Patient moved back from radiology. 14:57 Sandy Estevez FNP-C is [facility]. kb 14:57 Gabriel Guzman MD is Attending Physician. kb 15:08 EKG done, by ED staff, reviewed by Sandy CORTEZ. 3 17:43 Ruiz Cueto MD is Hospitalizing Provider. kb 18:21 Patient has correct armband on for positive identification. Bed in low position. Call rv light in reach. Side rails up X 1. environmental monitoring technician on. Pulse ox on. NIBP on. 20:33 No provider procedures requiring assistance completed. Patient admitted, IV remains in rv place. intact. Administered Medications: 17:45 Drug: Albuterol 2.5 mg Route: Inhalation; rv 17:45 Drug: AtroVENT Aerosol 0.5 mg Route: Inhalation; rv 17:45 Drug: Rocephin 1 grams Route: IV; Rate: calculated rate; Site: right upper arm; rv 17:45 Drug: SOLU-Medrol 125 mg Route: IVP; Site: right upper arm; rv 18:05 Drug: Zithromax 500 mg Route: IVPB; Infused Over: 1 hrs; Site: right upper arm; rv Outcome: 17:43 Decision to Hospitalize by Provider. kb 20:35 Admitted to Tele accompanied by tech, via wheelchair, room 428, with chart, Report rv called to TK NÚÑEZ 20:35 Condition: good 20:35 Instructed on the need for admit, Demonstrated understanding of instructions. 20:41 Patient left the ED. rv Signatures: Dispatcher [employer] EDMS Sandy Estevez FNP-C FNP-Ckb Verde, Stephanie, RN Kyung Alonzo mr Lyles, Cece Mirlande Ramires 3 Larry Dunn RN RN rv Acob, Cheryl, RN RN ca1
--- NOTE | 2018-06-29 17:45 | EDPHYS ---
Physician Documentation [facility] Name: Jakob Romero Age: 83 yrs Sex: Male : 1935 Arrival Date: 06/29/2018 Time: 13:38 Bed 26 Private MD: Ruiz Cueto C ED Physician Gabriel Guzman HPI: 06/29 17:43 This 83 yrs old Male presents to ER via Ambulatory with complaints of kb Breathing Difficulty. 17:43 The patient has shortness of breath at rest, and the patient has a history of COPD, kb CHF. Onset: The symptoms/episode began/occurred 3 day(s) ago. Duration: The symptoms are continuous. The patient's shortness of breath is aggravated by exertion, is alleviated by application of supplemental oxygen. Associated signs and symptoms: Pertinent positives: dizziness, Pertinent negatives: chest pain, non-productive cough, productive cough, diaphoresis, fever, hemoptysis, loss of consciousness, nausea, numbness in extremities, visual changes, vomiting. Severity of symptoms: At their worst the symptoms were moderate in the emergency department the symptoms are unchanged. The patient has not experienced similar symptoms in the past. The patient has not recently seen a physician. Historical: - Allergies: 13:55 No Known Allergies; sv - Home Meds: 18:26 aspirin 81 mg Oral chew 1 tab once daily [Active]; Sprivia 18 mcg daily [Active]; rv furosemide 40 mg Oral tab 1 tab once daily [Active]; metoprolol succinate 25 mg Oral Tb24 1 tab once daily [Active]; fluoxetine 20 mg Oral cap 1 cap once daily [Active]; - PMHx: 13:55 Angina; COPD; Depression; Hypertension; Myocardial infarction; Prostate Cancer; sv - PSHx: 13:55 lung, lower right lobectomy; sebatous cysts; prostate; Tonsillectomy; defibrilator and sv pace maker; lower right lobe of lung removed; Heart stents; - Immunization history:: Adult Immunizations up to date. - Social history:: Smoking status: unknown. - Ebola Screening: : Patient negative for fever greater than or equal to 101.5 degrees Fahrenheit, and additional compatible Ebola Virus Disease symptoms Patient denies exposure to infectious person Patient denies travel to an Ebola-affected area in the 21 days before illness onset. ROS: 17:43 Constitutional: Negative for fever, chills, and weight loss, ENT: Negative for injury, kb pain, and discharge, Neck: Negative for injury, pain, and swelling, Cardiovascular: Negative for chest pain, palpitations, and edema, Abdomen/GI: Negative for abdominal pain, nausea, vomiting, diarrhea, and constipation, Back: Negative for injury and pain, MS/Extremity: Negative for injury and deformity, Skin: Negative for injury, rash, and discoloration. 17:43 Respiratory: Positive for shortness of breath, at rest. 17:43 Neuro: Positive for dizziness. Exam: 17:43 Constitutional: This is a well developed, well nourished patient who is awake, alert, kb and in no acute distress. Head/Face: Normocephalic, atraumatic. ENT: Nares patent. No nasal discharge, no septal abnormalities noted. Tympanic membranes are normal and external auditory canals are clear. Oropharynx with no redness, swelling, or masses, exudates, or evidence of obstruction, uvula midline. Mucous membranes moist. Neck: Trachea midline, no thyromegaly or masses palpated, and no cervical lymphadenopathy. Supple, full range of motion without nuchal rigidity, or vertebral point tenderness. No Meningismus. Chest/axilla: Normal chest wall appearance and motion. Nontender with no deformity. No lesions are appreciated. Cardiovascular: Regular rate and rhythm with a normal S1 and S2. No gallops, murmurs, or rubs. Normal PMI, no JVD. No pulse deficits. Respiratory: Lungs have equal breath sounds bilaterally, clear to auscultation and percussion. No rales, rhonchi or wheezes noted. No increased work of breathing, no retractions or nasal flaring. Abdomen/GI: Soft, non-tender, with normal bowel sounds. No distension or tympany. No guarding or rebound. No evidence of tenderness throughout. Back: No spinal tenderness. No costovertebral tenderness. Full range of motion. Skin: Warm, dry with normal turgor. Normal color with no rashes, no lesions, and no evidence of cellulitis. MS/ Extremity: Pulses equal, no cyanosis. Neurovascular intact. Full, normal range of motion. Neuro: Awake and alert, GCS 15, oriented to person, place, time, and situation. Cranial nerves II-XII grossly intact. Motor strength 5/5 in all extremities. Sensory grossly intact. Cerebellar exam normal. Normal gait. Vital Signs: 13:55 BP 118 / 75; Pulse 73; Resp 22; Temp 97.8; Pulse Ox 100% ; Weight 96.16 kg; Height 6 sv ft. 1 in. (185.42 cm); Pain 0/10; 15:00 BP 120 / 89 LA; Pulse 73; Resp 22 S; Pulse Ox 97% on 2 lpm NC; rv 16:30 BP 126 / 94 LA; Pulse 73; Resp 21 S; Pulse Ox 99% on R/A; rv 17:26 Pulse Ox 93% on R/A; ca1 18:00 BP 124 / 73 LA; Pulse 74; Resp 18 S; Pulse Ox 100% on Nebulizer Mask; rv 18:30 BP 135 / 88 LA; Pulse 81; Resp 25 S; Pulse Ox 96% on 2 lpm NC; rv 19:00 BP 139 / 92 LA; Pulse 81; Resp 18 S; Pulse Ox 95% on 2 lpm NC; rv 20:00 BP 133 / 98 LA; Pulse 98; Resp 24 S; Pulse Ox 97% on 2 lpm NC; rv 13:55 Body Mass Index 27.97 (96.16 kg, 185.42 cm) sv MDM: 14:57 Patient medically screened. kb 17:39 Data reviewed: vital signs, nurses notes. Data interpreted: Pulse oximetry: on room air kb is 90 %. Interpretation: borderline. Counseling: I had a detailed discussion with the patient and/or guardian regarding: the historical points, exam findings, and any diagnostic results supporting the discharge/admit diagnosis, lab results, radiology results, the need for further work-up and treatment in the hospital. Physician consultation: A Rom JARQUIN was contacted at 17:39, regarding admission, to the telemetry unit. and will see patient in inpatient room. 06/29 15:10 Order name: Basic Metabolic Panel; Complete Time: 16:46 kb 06/29 15:10 Order name: CBC with Diff; Complete Time: 16:46 kb 06/29 15:10 Order name: LFT's; Complete Time: 16:46 kb 06/29 15:10 Order name: Magnesium; Complete Time: 16:46 kb 06/29 15:10 Order name: NT PRO-BNP; Complete Time: 16:46 kb 06/29 15:10 Order name: PT-INR; Complete Time: 16:46 kb 06/29 13:56 Order name: Chest Pa And Lat (2 Views) XRAY; Complete Time: 15:06 sv 06/29 15:10 Order name: Troponin (emerg Dept Use Only); Complete Time: 16:46 kb 06/29 15:10 Order name: Flu; Complete Time: 16:24 kb 06/29 16:00 Order name: Blood Culture Adult (2) kb 06/29 15:10 Order name: EKG; Complete Time: 15:11 kb 06/29 15:10 Order name: Cardiac monitoring; Complete Time: 18:18 kb 06/29 15:10 Order name: EKG - Nurse/Tech; Complete Time: 18:18 kb 06/29 15:10 Order name: IV Saline Lock; Complete Time: 18:18 kb 06/29 15:10 Order name: Labs collected and sent; Complete Time: 18:18 kb 06/29 15:10 Order name: O2 Per Protocol; Complete Time: 18:18 kb 06/29 15:10 Order name: O2 Sat Monitoring; Complete Time: 18:18 kb Administered Medications: 17:45 Drug: Albuterol 2.5 mg Route: Inhalation; rv 17:45 Drug: AtroVENT Aerosol 0.5 mg Route: Inhalation; rv 17:45 Drug: Rocephin 1 grams Route: IV; Rate: calculated rate; Site: right upper arm; rv 17:45 Drug: SOLU-Medrol 125 mg Route: IVP; Site: right upper arm; rv 18:05 Drug: Zithromax 500 mg Route: IVPB; Infused Over: 1 hrs; Site: right upper arm; rv Disposition: 06/29/18 17:43 Hospitalization ordered by Ruiz Cueto for Inpatient Admission. Preliminary diagnosis is Pneumonia, unspecified organism. - Bed requested for Telemetry/MedSurg (Inpatient). - Status is Inpatient Admission. rv - Condition is Stable. - Problem is new. - Symptoms are unchanged. UTI on Admission? No Addendum: 07/02/2018 07:13 Co-signature as Attending Physician, Gabriel Guzman MD I agree with the assessment and c mack plan of care. Signatures: Dispatcher [employer] Sandy Leon, ASHISH-Torres HINOJOSA-Kiley Richey RN RN sv Stanley, Karlee, RN RN dw Gabriel Guzman MD MD cha Botello, Elizabeth eb Vicente, Ronaldo, RN RN rv Corrections: (The following items were deleted from the chart) 06/29 18:31 17:43 Hospitalization Ordered by A Rom JARQUIN for Inpatient Admission. Preliminary eb diagnosis is Pneumonia, unspecified organism. Bed requested for Telemetry/MedSurg (Inpatient). Status is Inpatient Admission. Condition is Stable. Problem is new. Symptoms are unchanged. UTI on Admission? No. kb 19:44 18:31 06/29/2018 17:43 Hospitalization Ordered by A Rom JARQUIN for Inpatient Admission. dw Preliminary diagnosis is Pneumonia, unspecified organism. Bed requested for Telemetry/MedSurg (Inpatient). Status is Inpatient Admission. Condition is Stable. Problem is new. Symptoms are unchanged. UTI on Admission? No. eb 20:41 19:44 06/29/2018 17:43 Hospitalization Ordered by A Rom JARQUIN for Inpatient Admission. rv Preliminary diagnosis is Pneumonia, unspecified organism. Bed requested for Telemetry/MedSurg (Inpatient). Status is Inpatient Admission. Condition is Stable. Problem is new. Symptoms are unchanged. UTI on Admission? No. dw
[2018-06-29] MEDS ORDERED: NA CHLORIDE 0.9% 250 ML ONE (17:58)
[2018-06-29] MEDS ORDERED: ALBUTEROL 2.5 MG/3 ML NEB SOL ONE (17:58)
[2018-06-29] MEDS ORDERED: METHYLPREDNISOLONE 125 MG INJ ONE (17:58)
[2018-06-29] MEDS ORDERED: AZITHROMYCIN 500 MG INJ IVPB ONE (17:58)
[2018-06-29] MEDS ORDERED: IPRATROPIUM BROM 0.5MG/2.5ML ONE (17:58)
[2018-06-29] MEDS ORDERED: CEFTRIAXONE/SWI 1gm 1 GM/10 ML SYR ONE (17:59)
[2018-06-29] MEDS ORDERED: CEFTRIAXONE 1 GM/NS 50 ML 1 GM/50 ML BAG IV SCH (22:01)
[2018-06-29] MEDS ORDERED: ACETAMINOPHEN 500 MG TAB PO PRN (22:01)
[2018-06-29] MEDS: METHYLPREDNISOLONE 40 MG INJ IV SCH ×2 (22:01→23:42)
[2018-06-29 23:10] LABS: Urine Appearance CLEAR; Urine Bilirubin NEGATIVE (NEG); Urine Blood NEGATIVE (NEG); Urine Color YELLOW; Urine Glucose NEGATIVE (NEG); Urine Protein NEGATIVE (NEG); Urine Specific Gravity 1.015 (1.005-1.030); Urine Urobilinogen 0.2 mg/dL (0.2-1.0); Urine pH 5.5 (5.0-7.0)
[2018-06-29 23:14] LABS: Urine Microscopic Reflex NO UMIC
[2018-06-30] MEDS: METHYLPREDNISOLONE 40 MG INJ IV SCH ×4 (05:25→23:41)
[2018-06-30 06:49] LABS: Absolute Lymphocytes (CBC) 0.3 K/uL (0.7-4.9); Absolute Monocytes 0.1 K/uL (0.1-1.3); Absolute Neutrophil 4.5 K/uL (1.8-8.0); Basophils % 0.1 % (0-1.3); Eosinophils % 0.1 % (0-4.4); Hematocrit 36.4 % (39.6-49.0); Lymphocytes % 7.1 % (15.3-44.8); MPV 8.4 fL (7.6-11.3); Monocytes % 1.2 % (3.3-12.3); RBC Red Blood Cell Count 3.96 M/uL (4.33-5.43)
[2018-06-30 06:52] LABS: Potassium 3.8 mmol/L (3.5-5.1)
[2018-06-30] MEDS ORDERED: PNEUMOCOCCAL VACCINE 0.5 ML IMVAC ONE (08:00)
[2018-06-30 08:46] LABS: Anisocytosis 1+; Blood Morphology Comment NOTED (NOT SEEN); Ovalocytes 1+; Platelet Estimate ADEQ
[2018-06-30] MEDS ORDERED: HOME MED 1 EA UNK (Fluoxetine Hcl [Fluoxetine Hcl] 20 MG) PO SCH (09:00)
[2018-06-30] MEDS: TIOTROPIUM 5 SPRAYS/INHALER IH SCH (09:00)
--- NOTE | 2018-06-30 09:24 | EKG ---
Test Date: 2018-06-29 Test Time: 14:56:51 Bilingual Speech Therapist: MEASUREMENT RESULTS: Intervals: Rate: 71 NH: 120 QRSD: 200 QT: 506 QTc: 549 [place]: P: NH: 120 QRS: -85 T: 100 INTERPRETIVE STATEMENTS: Atrial-sensed ventricular-paced rhythm with occasional AV dual-paced complexes and with frequent premature ventricular complexe Biventricular pacemaker detected Abnormal ECG Compared to ECG 07/26/2017 09:29:42 Ventricular premature complex(es) now present Electronically Signed On 06-30-18 09:21:38 CDT by Faraz Dubon
[2018-06-30] MEDS: METOPROLOL XL 25 MG TAB PO SCH (09:25)
[2018-06-30] MEDS: MULTIVITAMIN TAB PO SCH (09:25)
[2018-06-30] MEDS: ASPIRIN 81 MG CHEWABLE TABLET PO SCH (09:25)
[2018-06-30] MEDS: CEFTRIAXONE/SWI 1gm 1 GM/10 ML SYR IV SCH ×2 (09:26→20:42)
[2018-06-30] MEDS: FUROSEMIDE 20 MG TABLET PO SCH (09:26)
[2018-06-30] MEDS: ENOXAPARIN 40 MG/0.4 ML SQ SCH (09:27)
[2018-06-30] MEDS: AZITHROMYCIN IV 250 MG in NA CHLORIDE 0.9% 250 ML IVPB SCH (10:05)
--- NOTE | 2018-06-30 14:12 | HP ---
Date of Admission: 06/30/2018 Chief Complaint: Shortness of breath. History Of Present Illness: This is an 83-year-old male patient came into emergency room with 2-3 da ys history of increasing shortness of breath. The patient denies any fever, chills, but has some cou gh and coughing up yellowish colored mucus with that. No vomiting. No diarrhea. He takes all his m edications regularly. After he was evaluated in the ER, he was admitted to the hospital with pneumon ia. This morning when I saw him, he feels somewhat better today compared to yesterday. Allergies: NO KNOWN ALLERGIES. Review of Systems: Respiratory: As mentioned above. Constitutional: As mentioned above. All other systems reviewed and negative. Medications List: Reviewed. Past Surgical History: Significant for AICD placement, right lower lung lobectomy not cancer related , and surgery for prostate cancer. Past Medical History: Significant for gastroesophageal reflux disease, depression, COPD, chronic sys tolic congestive heart failure, prostate cancer, hypertension, anemia. For prostate cancer, he had p rostatectomy in the past and in 2018, he had radiation treatment for that. Family History: Not pertinent. Social History: Prior history of smoking, not at present time. Use of alcohol negative. Physical Examination: Vital Signs: Last temperature 96.9, pulse 79, respiratory rate 18, blood pressure 129/74, oxygen sat uration 96% on 2 L nasal cannula oxygen. Height 6 feet 1 inch, weight 212 pounds. General: Awake, alert, oriented, not in distress. HEENT: Head atraumatic, normocephalic. Conjunctivae nonerythematous. Sclerae white. Mouth, no thr ush or edema noted. Ears/Nose, no mass, lesion, discharge noted. Neck: Supple. No JVD, lymph nodes, bruit, thyromegaly noted. Lungs: Presence of some rales noted in lower lung horn on the right side. Not using any accessory muscles of respiration. Heart: Normal heart sounds, no murmur or gallop. Abdomen: Soft, bowel sounds normal. No guarding, rigidity, tenderness, mass, hepatosplenomegaly, dis tention, or bruit noted. Extremities: No leg edema. No calf tenderness. Skin: No rash, ulcer, cellulitis. Lymphatics: No lymph node enlargement in neck, supraclavicular, infraclavicular region. Neuro: No focal neurological deficit. Chest: Unremarkable. External Genitalia: Deferred. Rectal: Deferred. Laboratory Data: White count yesterday 6.5, hemoglobin 12.9, platelets 214. This morning, white cou nt 4.9, hemoglobin 12.5, platelets 180. Yesterday, sodium 144, potassium 4, chloride 108, bicarb 28, BUN 16, creatinine 1.09. Glucose 123, magnesium 2.5. Liver function tests unremarkable troponin 0. 02. ProBNP 75667. This morning sodium 143, potassium 3.8, chloride 109, bicarb 27, BUN 19, creatini ne 1.03, glucose 198. ProBNP 73463. Urinalysis negative. Influenza A and B test negative. Chest x -ray, increased opacification right lung base suspicious for infiltrate. Impression: 1.Pneumonia. 2.Congestive heart failure, chronic, systolic. 3.Chronic obstructive pulmonary disease. 4.Prostate cancer. 5.Hypertension. 6.Anemia. 7.Gastroesophageal reflux disease. Plan: Admit the patient to hospital for further evaluation of this problem. The patient is appropri ate for inpatient and is expected to spend 2 midnights in hospital. We will continue home medication s per order, give IV antibiotics per order, oxygen nebulizer treatment will be given, and I will see him tomorrow for followup. We will repeat chest x-ray tomorrow. DVT prophylaxis will be given using Lovenox and details and plan of treatment discussed with the patient, and the patient wanted me to c all his and talk to her to explain details, and I will do so later on today. ANA/RADHA Voice ID: [id number]
[2018-06-30] MEDS ORDERED: FUROSEMIDE 20 MG/ 2ML VIAL IV ONE (17:24)
[2018-06-30] MEDS: FLUOXETINE 20 MG CAP PO SCH (18:30)
[2018-06-30] MEDS: SACUBITRIL/VALSARTAN 49/51 MG TAB PO SCH (20:41)
[2018-06-30] MEDS ORDERED: POTASSIUM CL SA 10 MEQ TAB PO ONE (21:00)
[2018-07-01] MEDS: METHYLPREDNISOLONE 40 MG INJ IV SCH ×3 (05:28→17:23)
[2018-07-01 05:55] LABS: Absolute Lymphocytes (CBC) 0.4 K/uL (0.7-4.9); Absolute Monocytes 0.3 K/uL (0.1-1.3); Absolute Neutrophil 10.8 K/uL (1.8-8.0); Basophils % 0.1 % (0-1.3); Hematocrit 34.9 % (39.6-49.0); Lymphocytes % 3.5 % (15.3-44.8); MPV 8.5 fL (7.6-11.3); Monocytes % 2.8 % (3.3-12.3); RBC Red Blood Cell Count 3.76 M/uL (4.33-5.43)
[2018-07-01 06:14] LABS: Magnesium 2.5 mg/dL (1.8-2.4); Potassium 4.7 mmol/L (3.5-5.1)
[2018-07-01] MEDS: TIOTROPIUM 5 SPRAYS/INHALER IH SCH (09:00)
[2018-07-01] MEDS: AZITHROMYCIN IV 250 MG in NA CHLORIDE 0.9% 250 ML IVPB SCH (09:24)
[2018-07-01] MEDS: ENOXAPARIN 40 MG/0.4 ML SQ SCH (09:25)
[2018-07-01] MEDS: CEFTRIAXONE/SWI 1gm 1 GM/10 ML SYR IV SCH ×2 (09:25→20:40)
[2018-07-01] MEDS: FLUOXETINE 20 MG CAP PO SCH (09:26)
[2018-07-01] MEDS: MULTIVITAMIN TAB PO SCH (09:26)
[2018-07-01] MEDS: METOPROLOL XL 25 MG TAB PO SCH (09:26)
[2018-07-01] MEDS: SACUBITRIL/VALSARTAN 49/51 MG TAB PO SCH ×2 (09:26→20:40)
[2018-07-01] MEDS: ASPIRIN 81 MG CHEWABLE TABLET PO SCH (09:26)
[2018-07-01] MEDS: FUROSEMIDE 20 MG TABLET PO SCH (09:26)
[2018-07-01] MEDS: SPIRIVA 18 MCG IH SCH (11:14)
--- NOTE | 2018-07-01 15:59 | PN ---
Date of Progress Note: 07/01/2018 Subjective: The patient was seen this morning for followup. He was lying in bed, not in distress. Denied any new complaints. No chest pain, shortness of breath, nausea, vomiting. Objective: Vital Signs: Reviewed. HEENT: Unremarkable. Lungs: Clear to auscultation except very minimum basal rales. Not using accessory muscles of respir ation. Heart: Sounds normal. Abdomen: Soft. Bowel sounds. No guarding, rigidity, tenderness, distention. Extremities: No leg edema. Laboratory Data: White count 11.5, hemoglobin 11.6, platelets 180. Sodium 141, potassium 4.7, chlor cholo 106, bicarb 31, BUN 25, creatinine 1.10, glucose 187, magnesium 2.5. Impression: 1.Pneumonia. 2.Congestive heart failure, chronic, systolic. 3.Hypertension. Plan: We will go ahead and continue current medication, antibiotic, oxygen, nebulizer treatment. DV T prophylaxis per order. Ambulation was encouraged. I will see him tomorrow for followup. Possible discharge to go home tomorrow. We will repeat chest x-ray later today. Plan of treatment discussed with the patient. ANA/MODL Voice ID: [id number] Report ID: [id number]
[2018-07-01] MEDS: IPRATROPIUM BROM 0.5MG/2.5ML NEB PRN ×2 (17:38→22:35)
[2018-07-01] MEDS: ALBUTEROL 2.5 MG/3 ML NEB SOL NEB PRN ×2 (17:38→22:35)
--- NOTE | 2018-07-01 19:56 | RAD REPORT ---
EXAM DESCRIPTION: Branden Linn And Toshia (2 Views)07/01/2018 7:29 pm CLINICAL HISTORY: Chest pain COMPARISON: June 29 FINDINGS: No significant change in mild bibasilar lung opacities. Additional bilateral lung opacities appear chronic. The heart is mildly to moderately enlarged. Right apical pleural thickening unchanged Postsurgical changes involve the chest. Small pleural effusions suspected IMPRESSION: No significant change in mild bibasilar opacities probably representing pneumonia
[2018-07-01 23:21] LABS: Absolute Lymphocytes (CBC) 0.5 K/uL (0.7-4.9); Absolute Monocytes 0.6 K/uL (0.1-1.3); Absolute Neutrophil 11.4 K/uL (1.8-8.0); Basophils % 0.1 % (0-1.3); Hematocrit 37.1 % (39.6-49.0); MPV 8.9 fL (7.6-11.3); Monocytes % 4.6 % (3.3-12.3)
[2018-07-02 00:07] LABS: Albumin 3.9 g/dL (3.4-5.0); Bilirubin Total 0.7 mg/dL (0.2-1.0); Potassium 3.9 mmol/L (3.5-5.1); Protein, Total 7.1 g/dL (6.4-8.2)
[2018-07-02] MEDS: METHYLPREDNISOLONE 40 MG INJ IV SCH ×2 (00:26→05:42)
[2018-07-02] MEDS ORDERED: POTASSIUM CL SA 10 MEQ TAB PO ONE (07:21)
[2018-07-02] MEDS ORDERED: FUROSEMIDE 20 MG/ 2ML VIAL IV ONE (07:43)
[2018-07-02] MEDS: FLUOXETINE 20 MG CAP PO SCH (08:41)
[2018-07-02] MEDS: SACUBITRIL/VALSARTAN 49/51 MG TAB PO SCH ×2 (08:41→21:20)
[2018-07-02] MEDS: ASPIRIN 81 MG CHEWABLE TABLET PO SCH (08:41)
[2018-07-02] MEDS: METOPROLOL XL 25 MG TAB PO SCH (08:41)
[2018-07-02] MEDS: MULTIVITAMIN TAB PO SCH (08:41)
[2018-07-02] MEDS: ENOXAPARIN 40 MG/0.4 ML SQ SCH (08:42)
[2018-07-02] MEDS: SPIRIVA 18 MCG IH SCH (08:42)
[2018-07-02] MEDS: AZITHROMYCIN IV 250 MG in NA CHLORIDE 0.9% 250 ML IVPB SCH (08:43)
[2018-07-02] MEDS: PIPER/TAZO/NS 3.375gm 3.375 GM/100 ML BAG IVPB SCH ×2 (11:19→16:23)
[2018-07-02] MEDS: IPRATROPIUM BROM 0.5MG/2.5ML NEB PRN (11:56)
[2018-07-02] MEDS: ALBUTEROL 2.5 MG/3 ML NEB SOL NEB PRN (11:56)
[2018-07-02] MEDS: FUROSEMIDE 20 MG TABLET PO SCH (13:14)
--- NOTE | 2018-07-02 14:57 | CON ---
History Of Present Illness: Mr. Romero is 83, came to the hospital with dyspnea. Mr. Romero has a problem with coronary heart disease. He has had 1 stent, not bypass surgery. He has very severely depressed ejection fraction, it is in the 15-20% range. He has an implanted cardiac defibrillator. He had been on amiodarone because of a history of atrial fibrillation, but that had to be stopped because of suspected liver toxicity that was a couple of years ago. Presently, he takes Entresto metoprolol and laxis. He takes fluoxetine, multivitamin, Spiriva, aspirin, also. 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 He came to the hospital for dyspnea. He is improved but still with dyspnea. He has had antibiotics, breathing treatments, on diuretics. Chest x-ray did not show florid pulmonary edema. Maybe a little bit of excess fluid in the lung bases. I am called because he had some runs of ventricular tachycardia, 1 was at a rate of 105 beats per minute, it caused no hemodynamically distress and one VT spell was at a heart rate of 200 bpm and it was pace terminated. Physical Examination: General: He is 6 feet 1 inch, 212 pounds. Appears to be his stated age. Lungs: Clear. Heart: Laterally displaced apical impulse. Grade 1/6 holosystolic murmur. Abdomen: Soft. Extremities: Mild edema. Distal pulses diminished but palpable. ECG shows paced rhythm. Impression: He is probably is well controlled for his VT with all episodes of asymptomatic VT pace terminated. I recommend we continue present therapy. JEROD Voice ID: [id number] Report ID: [id number] NETTA
[2018-07-03] MEDS: PIPER/TAZO/NS 3.375gm 3.375 GM/100 ML BAG IVPB SCH ×3 (00:18→16:10)
[2018-07-03] MEDS: IPRATROPIUM BROM 0.5MG/2.5ML NEB PRN ×2 (00:30→11:18)
[2018-07-03] MEDS: ALBUTEROL 2.5 MG/3 ML NEB SOL NEB PRN ×2 (00:30→11:18)
--- NOTE | 2018-07-03 02:58 | PN ---
Date of Progress Note: 07/02/2018 Subjective: The patient was seen this morning for followup. He was lying in bed, not in distress. No new complaints or problems reported by the patient and nursing staff reported that the patient had paroxysmal supraventricular tachycardia type of problem last night. Objective: Vital Signs: Reviewed. HEENT: Unremarkable. Lungs: Presence of rhonchi noted in both lung horn. No rales. Heart: Sounds normal. Abdomen: Soft. Bowel sounds normal. No guarding, rigidity, tenderness, or distention. Extremities: No leg edema. Laboratory Data: White count 12.5, hemoglobin 12.1, and platelets 185. Sodium 140, potassium 3.9, c hloride 104, bicarb 27, BUN 30, creatinine 1.22, and glucose 212. Liver function tests unremarkable except SGOT 48. Impression: 1.Pneumonia. 2.Congestive heart failure, chronic, systolic. 3.Supraventricular tachycardia. Plan: We will go ahead and discontinue steroid that patient was taking. This could account for incr ease in WBC count. We will follow up on chest x-ray result. Consult Cardiology. Change antibiotic and start the patient on Zosyn. Continue Zithromax and discontinue Rocephin. Discontinue IV Solu-Me drol. IV Lasix 20 mg IV x1 dose was ordered today. We will see him tomorrow for followup. Physical therapy to help ambulate the patient . ANA/MODL Voice ID: [id number] Report ID: [id number]
[2018-07-03 06:34] LABS: Magnesium 2.7 mg/dL (1.8-2.4)
[2018-07-03] MEDS: FLUOXETINE 20 MG CAP PO SCH (08:55)
[2018-07-03] MEDS: SACUBITRIL/VALSARTAN 49/51 MG TAB PO SCH ×2 (08:55→21:00)
[2018-07-03] MEDS: MULTIVITAMIN TAB PO SCH (08:55)
[2018-07-03] MEDS: ENOXAPARIN 40 MG/0.4 ML SQ SCH (08:55)
[2018-07-03] MEDS: METOPROLOL XL 25 MG TAB PO SCH (08:55)
[2018-07-03] MEDS: ASPIRIN 81 MG CHEWABLE TABLET PO SCH (08:55)
[2018-07-03] MEDS: FUROSEMIDE 20 MG TABLET PO SCH (08:56)
[2018-07-03] MEDS: SPIRIVA 18 MCG IH SCH (08:56)
[2018-07-03] MEDS: DOXYCYCLINE 100 MG in NA CHLORIDE 0.9% 100 ML IVPB SCH ×2 (08:57→21:02)
[2018-07-03] MEDS ORDERED: FUROSEMIDE 20 MG/ 2ML VIAL IV ONE (10:24)
--- NOTE | 2018-07-03 12:56 | RAD REPORT ---
EXAM DESCRIPTION: Katiet Pa And Lat (2 Views)07/03/2018 12:49 pm CLINICAL HISTORY: Cough COMPARISON: July 01, 2018 FINDINGS: No significant change in the right basilar opacity. Left lung opacity has partially resolved. Additional bilateral pulmonary opacities appear chronic The heart is mildly to moderately enlarged. Pacemaker leads are in place.
[2018-07-03] MEDS: IPRATROPIUM BROM 0.5MG/2.5ML NEB SCH ×2 (14:00→19:41)
[2018-07-03] MEDS ORDERED: AMIODARONE HCL 150 MG in D5W 100 ML IV STA (16:42)
[2018-07-03] MEDS ORDERED: FUROSEMIDE 40 MG/4 ML VIAL ONE (16:53)
[2018-07-03] MEDS ORDERED: METHYLPREDNISOLONE 125 MG INJ ONE (16:54)
[2018-07-03] MEDS ORDERED: LORazepam 2 MG/ML VIAL ONE (17:07)
[2018-07-03 17:45] LABS: Bilirubin Total 1.4 mg/dL (0.2-1.0); Potassium 3.9 mmol/L (3.5-5.1)
--- NOTE | 2018-07-03 18:09 | RAD REPORT ---
EXAM DESCRIPTION: Branden Single View07/03/2018 5:31 pm CLINICAL HISTORY: Chest pain COMPARISON: July 03, 2018 FINDINGS: Mild worsening in bilateral pulmonary opacities. Heart remains enlarged. Pacemaker leads i n place IMPRESSION: Mild worsening in bilateral pulmonary opacities may indicate mild interstitial pulmonar y edema superimposed over mild bibasilar pneumonia
[2018-07-03 18:21] LABS: Blood Gas Oxyhemoglobin 95.2 % (94-97); Blood O2 Saturation 96.6 % (92-98.5)
[2018-07-04] MEDS: PIPER/TAZO/NS 3.375gm 3.375 GM/100 ML BAG IVPB SCH ×3 (01:00→16:23)
[2018-07-04] MEDS: IPRATROPIUM BROM 0.5MG/2.5ML NEB SCH ×4 (02:00→19:30)
--- NOTE | 2018-07-04 02:07 | PN ---
Date of Progress Note: 07/03/2018 Subjective: The patient was seen this morning for followup. He was lying in bed in his room on the medical floor. Denied any complaints. Last night around 3:30 in the morning, the patient had episod e of ventricular tachycardia and his defibrillator went off and provided him shock and he converted t o sinus rhythm. He had another episode of ventricular tachycardia later this morning and once again his defibrillator went off. Hemodialysis Patient Care Specialist was contacted and he discussed details with Dr. Jagdish gutierrez ut this and the plan was to go ahead and increase the dose of metoprolol, but subsequently after my d iscussion with emc storage architect sometime this afternoon, the patient's condition deteriorated. Nelsy chamberlain was called on the floor, but he never lost his blood pressure or pulse. The patient was brought int o ICU. He was in atrial fibrillation with rapid ventricular rate. Blood pressure was [address] Dubon recommended cardioversion, which was performed in ICU and the patient converted t o sinus rhythm with 1 attempt. He received 1 dose of Ativan. When I went to ICU to check on him aga in this evening he was sleeping, BiPAP was placed. Berkowitz catheter was placed, 40 mg IV Lasix was giv en earlier and he had about 300 cc of urine output. His chest x-ray done earlier today showed improv ement in pneumonia. Physical Examination: HEENT: Examination unremarkable. Lungs: Bilateral good equal air entry. Minimum basal rales. Heart: Sounds normal. Abdomen: Soft. Bowel sounds normal. No guarding, rigidity, tenderness, distention. Extremities: Bilateral trace to grade 1 edema. Laboratory Data: Sodium 141, potassium 4, chloride 106, bicarb 27, BUN 35, creatinine 1.41, glucose 164. His sputum culture is growing Staph aureus. Impression: 1.Pneumonia. 2.Congestive heart failure, chronic, systolic, with acute exacerbation. 3.Ventricular tachycardia. 4.Atrial fibrillation. 5.Chronic kidney disease stage III. 6.Chronic obstructive pulmonary disease. Plan: The patient had 2 episodes of ventricular tachycardia, second episode happened soon after he r eceived albuterol nebulizer treatment, so at that time order was given to discontinue albuterol nebul izer treatment and we will just use Atrovent nebulizer treatment every 6 hours. This morning antibio tic was changed from Azithromycin to doxycycline and we will continue Zosyn per order. IV Lasix was given. We will continue to use IV Lasix on a daily basis. Lovenox will be given per order. The yesenia rutledge will be kept in ICU overnight. Depending on his condition tomorrow, we will decide if we can mo ve him out of ICU to regular room or not. Amiodarone drip was started in ICU after he arrived, and w e will continue to follow with emc storage architect. Family states that the patient had echocardiogram with Dr. Dubon last week and I will follow up on the result with Dr. Dubon regarding that. Overall pr ognosis is poor. I did talk to patient's family that is and multiple other family this evening outside ICU. Details were discussed with them and advance directive discussed with the and info rmed me that patient would not have wanted any CPR or any kind of ventilator support in the event of cardiopulmonary arrest, so we will go ahead and put the order for DNR. I will see him tomorrow for jaiden sandoval. ANA/MODL Voice ID: [id number] Report ID: [id number]
[2018-07-04 05:12] LABS: Absolute Lymphocytes (CBC) 0.4 K/uL (0.7-4.9); Absolute Monocytes 1.3 K/uL (0.1-1.3); Absolute Neutrophil 9.3 K/uL (1.8-8.0); Basophils % 0.1 % (0-1.3); Hematocrit 38.3 % (39.6-49.0); Lymphocytes % 3.4 % (15.3-44.8); Monocytes % 11.9 % (3.3-12.3); RBC Red Blood Cell Count 4.15 M/uL (4.33-5.43)
--- NOTE | 2018-07-04 05:17 | PN ---
Date of Progress Note: 07/03/2018 Subjective: Mr. Romero is a patient of Dr. Cueto, has been seen by Dr. Saha and myself because of his end-stage cardiomyopathy with a ventricular tachycardia without any hemodynamic compromise, has h ad some VT that has been terminated by the ICD and pacemaker. Today, however, had VT in the 140s wit h some hypotension, not paced, terminated. I recommended a direct current cardioversion, which was d one in the ICU after he was transferred there. That worked. He went back to paced rhythm with mario l blood pressure. The patient's family does not want him to be intubated. We will continue his pres ent regimen. He was started on IV amiodarone by Dr. Saunders, who was covering for Dr. Cueto and I agre e with that for now. We will make further decision depending what his rhythm does. In the past, ami odarone had been discontinued secondary to liver toxicity. ELVA/RADHA Voice ID: [id number] Report ID: [id number]
[2018-07-04 05:31] LABS: Magnesium 2.7 mg/dL (1.8-2.4); Potassium 3.8 mmol/L (3.5-5.1)
[2018-07-04] MEDS ORDERED: POTASSIUM CL SA 10 MEQ TAB PO ONE (06:18)
[2018-07-04] MEDS ORDERED: VANCOMYCIN/NS 1 gm 1 GM/250 ML BAG IVPB SCH (07:15)
--- NOTE | 2018-07-04 07:44 | EKG ---
Test Date: 2018-07-03 Test Time: 17:18:40 Pouncer Machine: HITESH MEASUREMENT RESULTS: Intervals: Rate: 87 CO: 108 QRSD: 214 QT: 510 QTc: 613 Marshall: P: 49 CO: 108 QRS: -55 T: 105 INTERPRETIVE STATEMENTS: Electronic ventricular pacemaker Compared to ECG 06/29/2018 14:56:51 Atrial-sensed ventricular-paced complex(es) or rhythm no longer present AV dual-paced complex(es) or rhythm no longer present Ventricular premature complex(es) no longer present Electronically Signed On 07-04-18 07:44:16 CDT by Oskar Saha
--- NOTE | 2018-07-04 09:44 | RAD REPORT ---
EXAM DESCRIPTION: RAD - Chest Single View - 07/04/2018 9:28 am CLINICAL HISTORY: Device placement PICC line placement COMPARISON: July 03, 2018 FINDINGS: A PICC line has been inserted with its tip in the distal superior vena cava. Mild bilateral pulmonary opacities unchanged. Pacemaker leads in place. The heart is moderately enlar ged IMPRESSION: PICC line with its tip in the distal superior vena cava
[2018-07-04] MEDS: MULTIVITAMIN TAB PO SCH (09:45)
[2018-07-04] MEDS: ENOXAPARIN 40 MG/0.4 ML SQ SCH (09:46)
[2018-07-04] MEDS: FLUOXETINE 20 MG CAP PO SCH (09:46)
[2018-07-04] MEDS: FUROSEMIDE 20 MG TABLET PO SCH (09:46)
[2018-07-04] MEDS: ASPIRIN 81 MG CHEWABLE TABLET PO SCH (09:46)
[2018-07-04] MEDS: VANCOMYCIN 1.5 GM in NA CHLORIDE 0.9% 500 ML IVPB SCH (09:47)
[2018-07-04] MEDS: SPIRIVA 18 MCG IH SCH (09:50)
[2018-07-04] MEDS: SACUBITRIL/VALSARTAN 49/51 MG TAB PO SCH ×2 (09:56→20:18)
[2018-07-04] MEDS: METOPROLOL XL 25 MG TAB PO SCH (09:56)
[2018-07-04] MEDS: FUROSEMIDE 40 MG/4 ML VIAL IV SCH (16:23)
[2018-07-04] MEDS: HALOPERIDOL LACT 5 MG/ML INJ IV PRN ×2 (16:46→22:12)
[2018-07-04] MEDS ORDERED: HALOPERIDOL LACT 5 MG/ML INJ ONE (16:54)
--- NOTE | 2018-07-04 19:04 | PN ---
Mr. Romero had ventricular tachycardia that was not treated by his defibrillator. We reprogrammed t he defibrillator, so it will take care of that. Very wary of giving him amiodarone because of previo us diagnosis of liver toxicity. I think the patient will do better if we diurese him some more. I t hink he is volume overloaded and his defibrillator checks certainly indicates that he is and with the reprogramming maybe we can stop the amiodarone again and avoid giving him that toxicity. PAULO/RADHA Voice ID: [id number] Report ID: [id number]
--- NOTE | 2018-07-04 19:56 | PN ---
Date of Progress Note: 07/04/2018 Subjective: The patient was seen this morning for followup. Lying in bed, not in distress. Objective: Vital signs: Reviewed. Intake output records: Reviewed. HEENT: Unremarkable. Lungs: Not in any respiratory distress. Some rales noted in lower lung horn. Heart: Sounds normal. Abdomen: Soft. Bowel sounds normal. No guarding, rigidity, tenderness, or distention. Extremities: Trace leg edema. Laboratory Data: White count 11, hemoglobin 12.7, platelets 178. Sodium 142, potassium 3.8, chlorid e 105, bicarb 30, BUN 35, creatinine 1.62, glucose 109. Impression: 1.Congestive heart failure, chronic, systolic, with acute exacerbation. 2.Pneumonia. 3.Sepsis. 4.Chronic kidney disease, stage 3. 5.Atrial fibrillation. 6.Ventricular tachycardia. Plan: This morning when I saw the patient, he was doing much better, awake, alert, was talking. The patient had a PICC line placed today. We will continue amiodarone and IV Lasix. This morning his b lood culture was reported as gram-positive cocci and sputum culture already showed Staph aureus, so w e will discontinue doxycycline and start him on vancomycin. We will continue his Zosyn. The patient 's daughter and son-in-law this morning in ICU waiting room. During the course of day today, the pat ieabelino had some agitation with confusion and Haldol was ordered for p.r.n. use. We will keep him in IC U today. Depending on his condition, we will decide if we can transfer him out of ICU to regular room. He was on nasal cannula oxygen when I saw him this morning and hemodynamically stable. ANA/MODL Voice ID: [id number] Report ID: [id number]
[2018-07-05] MEDS: PIPER/TAZO/NS 3.375gm 3.375 GM/100 ML BAG IVPB SCH ×3 (00:40→17:25)
[2018-07-05] MEDS: IPRATROPIUM BROM 0.5MG/2.5ML NEB SCH ×4 (01:25→20:00)
[2018-07-05] MEDS: HALOPERIDOL LACT 5 MG/ML INJ IV PRN (05:15)
[2018-07-05 05:41] LABS: Magnesium 2.7 mg/dL (1.8-2.4); Potassium 4.2 mmol/L (3.5-5.1)
[2018-07-05] MEDS: METOPROLOL XL 25 MG TAB PO SCH (09:16)
[2018-07-05] MEDS ORDERED: LORAZEPAM 0.5 MG TABLET PO PRN (09:16)
[2018-07-05] MEDS: MULTIVITAMIN TAB PO SCH (09:16)
[2018-07-05] MEDS: FLUOXETINE 20 MG CAP PO SCH (09:16)
[2018-07-05] MEDS: ENOXAPARIN 40 MG/0.4 ML SQ SCH (09:17)
[2018-07-05] MEDS: VANCOMYCIN 1.5 GM in NA CHLORIDE 0.9% 500 ML IVPB SCH (09:17)
[2018-07-05] MEDS: FUROSEMIDE 40 MG/4 ML VIAL IV SCH ×2 (09:17→17:25)
[2018-07-05] MEDS: SACUBITRIL/VALSARTAN 49/51 MG TAB PO SCH ×2 (09:18→20:02)
[2018-07-05] MEDS: ASPIRIN 81 MG CHEWABLE TABLET PO SCH (09:18)
[2018-07-05] MEDS: AMIODARONE HCL 200 MG TAB PO SCH (09:25)
[2018-07-05] MEDS: SPIRIVA 18 MCG IH SCH (09:28)
--- NOTE | 2018-07-05 14:21 | PN ---
Date of Progress Note: 07/05/2018 Subjective: Mr. Romero in the hospital for pneumonia, has ischemic cardiomyopathy with a very poor ejection fraction, on Entresto. Had to be placed on amiodarone and had to be shocked about 48 hours ago yesterday. His AICD was adjusted so will shock his VT at a low rate. He is on amiodarone, has n ot had any further ventricular tachycardia. The case was discussed with Dr. Cueto and Dr. Saha. I think it would be reasonable to put him on a low-dose amiodarone 200 mg daily, stop his IV amiodarone , diurese him more aggressively and we will see how he does. ELVA/RADHA Voice ID: [id number] Report ID: [id number]
[2018-07-05] MEDS: ASMANEX IH SCH (20:02)
--- NOTE | 2018-07-06 01:28 | PN ---
Date of Progress Note: 07/05/2018 Subjective: The patient was seen this morning for followup. He was lying in bed in ICU on nasal can nula oxygen, not in any distress. Intake and output records reviewed. Overall, he looks better than yesterday. Objective: Vital Signs: Reviewed. HEENT: Examination unremarkable. Lungs: Bilateral scattered wheezing noted in all lung horn. Not using accessory muscles of respir ation. Heart: Sounds normal. Abdomen: Soft. Bowel sounds normal. No guarding, rigidity, tenderness, or distention. Extremities: trace leg edema. Laboratory Data: Sodium 141, potassium 4.2, chloride 103, bicarb 26, BUN 50, creatinine 2.01, glucos e 152, magnesium 2.7. Impression: 1.Pneumonia. 2.Congestive heart failure, chronic, systolic, with acute exacerbation. 3.Atrial fibrillation. 4.Ventricular tachycardia. 5.Acute kidney injury. 6.Delirium. Plan: The patient was given Haldol yesterday. It did help a little bit, but not much, but his delir ium is better today compared to yesterday. I did talk to inserter promotional item Dr. Dubon and Dr. Saha. Th e patient is on IV amiodarone. There is a questionable history of side effect on liver with amiodaro ne in the past, which was before he came under my care and this was while he was under care of his ca rdiologist in [place]. Dr. Dubon and Dr. Saha, they both suggested to discontinue IV amiodarone and start him on 200 mg p.o. daily, which was ordered as of this morning and we will continue current antibiotic. Follow up on culture results. Continue IV Lasix. Oxygen nebulizer treatment using Atr ovent. As per my request, family member came to my office to supervisor opening and picking sample of Asmanex 100 mcg inhal er, and nurse was instructed to start 2 puffs twice a day. He did receive 1 dose this morning. I ca me back to check on him this evening. He is lying in ICU, comfortable. Family is at bedside and he is denying any new complaints. He did get out of bed today. His lung examination shows bilateral sc attered wheezing in all the lung horn, but it is less this evening compared to this morning. Plan is to keep him in ICU tonight. Depending on his condition tomorrow, we will decide if we can transfe r him to floor or not and details were discussed with the patient and family. ANA/MODL Voice ID: [id number] Report ID: [id number]
[2018-07-06] MEDS: PIPER/TAZO/NS 3.375gm 3.375 GM/100 ML BAG IVPB SCH ×3 (01:52→17:03)
[2018-07-06] MEDS: IPRATROPIUM BROM 0.5MG/2.5ML NEB SCH ×4 (02:00→19:35)
[2018-07-06 05:27] LABS: Magnesium 2.5 mg/dL (1.8-2.4); Potassium 3.1 mmol/L (3.5-5.1)
[2018-07-06] MEDS ORDERED: POTASSIUM CL SA 10 MEQ TAB PO ONE ×2 (06:00→18:18)
[2018-07-06] MEDS: ASPIRIN 81 MG CHEWABLE TABLET PO SCH (08:56)
[2018-07-06] MEDS: FLUOXETINE 20 MG CAP PO SCH (08:56)
[2018-07-06] MEDS: MULTIVITAMIN TAB PO SCH (08:56)
[2018-07-06] MEDS: METOPROLOL XL 25 MG TAB PO SCH (08:56)
[2018-07-06] MEDS: SACUBITRIL/VALSARTAN 49/51 MG TAB PO SCH ×2 (08:56→20:36)
[2018-07-06] MEDS: ENOXAPARIN 40 MG/0.4 ML SQ SCH (08:57)
[2018-07-06] MEDS: SPIRIVA 18 MCG IH SCH (08:58)
[2018-07-06] MEDS: FUROSEMIDE 40 MG/4 ML VIAL IV SCH ×2 (08:58→17:03)
[2018-07-06] MEDS: VANCOMYCIN 1.5 GM in NA CHLORIDE 0.9% 500 ML IVPB SCH (08:58)
[2018-07-06] MEDS: ASMANEX IH SCH ×2 (08:58→20:36)
[2018-07-06] MEDS: AMIODARONE HCL 200 MG TAB PO SCH (08:59)
--- NOTE | 2018-07-06 20:45 | PN ---
Date of Progress Note: 07/06/2018 Subjective: The patient was seen this morning for followup. No new complaints or problems reported by patient. Lying in bed, not in distress. On nasal cannula oxygen. Feeling much better this parveenni ng compared to yesterday. Objective: Vital Signs: Reviewed. HEENT: Unremarkable. Lungs: Bilateral good equal air entry. Significant improvement in lung findings today. Wheezing th at he had yesterday has almost completely resolved today. He is not in any respiratory distress. Heart: Sounds normal. Abdomen: Soft. Bowel sounds normal. No guarding, rigidity, tenderness, or distention. Extremities: No leg edema. Laboratory Data: Sodium 146, potassium 3.1, chloride 106, bicarb 31, BUN 54, creatinine 1.70, glucos e 139, magnesium 2.5. Impression: 1.Pneumonia. 2.Congestive heart failure, chronic, systolic, with acute exacerbation. 3.Acute exacerbation of chronic obstructive pulmonary disease. 4.Chronic kidney disease, stage 3. 5.Delirium. Plan: The patient's condition has improved. He is doing much better compared to yesterday, since we started him on Asmanex inhaler and we will continue that at this point. He did have a short run of ventricular tachycardia. He was asymptomatic early this morning and nurse notified me and I did advi ce nurse to notify television news producer. His defibrillator did not go off because this was a very short run as I understand. He is on amiodarone 200 mg p.o. daily. We will consider possible transfer to medical floor later today if his condition is stable. Details were discussed wi th the patient and his family. ANA/MODL Voice ID: [id number] Report ID: [id number]
--- NOTE | 2018-07-06 20:51 | PN ---
Mr. Romero had another episode of ventricular tachycardia. It was quite rapid close to 200 beats pe r minute but the pacemaker successfully terminated it without shocking in, its one in the last 24 aki rs. I think we are making some headway. Diuresis and low-dose amiodarone as long as he can tolerate it, will be tried. He remains do not resuscitate status. PAULO/RADHA Voice ID: [id number] Report ID: [id number]
[2018-07-07] MEDS ORDERED: POTASSIUM 25 MEQ EFFERV TAB PO ONE (00:12)
[2018-07-07] MEDS: PIPER/TAZO/NS 3.375gm 3.375 GM/100 ML BAG IVPB SCH ×3 (00:32→17:23)
[2018-07-07] MEDS: IPRATROPIUM BROM 0.5MG/2.5ML NEB SCH ×4 (01:25→20:05)
[2018-07-07 07:36] LABS: Magnesium 2.3 mg/dL (1.8-2.4); Potassium 3.6 mmol/L (3.5-5.1)
[2018-07-07] MEDS: VANCOMYCIN 1.5 GM in NA CHLORIDE 0.9% 500 ML IVPB SCH (08:00)
[2018-07-07] MEDS ORDERED: POTASSIUM CL SA 10 MEQ TAB PO ONE (08:16)
--- NOTE | 2018-07-07 08:52 | PN ---
Mr. Romero has gone more than 24 hours without any episodes of VT. I would recommend he could be mo kaur out of ICU. Continue amiodarone 200 a day. PAULO/RADHA Voice ID: [id number] Report ID: [id number]
[2018-07-07] MEDS: SACUBITRIL/VALSARTAN 49/51 MG TAB PO SCH ×2 (09:28→21:45)
[2018-07-07] MEDS: ASPIRIN 81 MG CHEWABLE TABLET PO SCH (09:28)
[2018-07-07] MEDS: AMIODARONE HCL 200 MG TAB PO SCH (09:28)
[2018-07-07] MEDS: METOPROLOL XL 25 MG TAB PO SCH (09:28)
[2018-07-07] MEDS: FLUOXETINE 20 MG CAP PO SCH (09:28)
[2018-07-07] MEDS: MULTIVITAMIN TAB PO SCH (09:28)
[2018-07-07] MEDS: FUROSEMIDE 40 MG/4 ML VIAL IV SCH ×2 (09:29→17:23)
[2018-07-07] MEDS: SPIRIVA 18 MCG IH SCH (09:32)
[2018-07-07] MEDS: ASMANEX IH SCH ×2 (09:33→21:44)
[2018-07-07] MEDS: ENOXAPARIN 40 MG/0.4 ML SQ SCH (09:46)
--- NOTE | 2018-07-07 10:01 | RAD REPORT ---
EXAM DESCRIPTION: Branden Single View07/07/2018 7:12 am CLINICAL HISTORY: Shortness of breath COMPARISON: July 04, 2018 FINDINGS: Left pulmonary opacities appear resolved. Mild right pulmonary opacities persist. Heart remains enlarged. Pacemaker leads and PICC line remain in place
[2018-07-07 11:08] LABS: Absolute Lymphocytes (CBC) 0.4 K/uL (0.7-4.9); Absolute Monocytes 0.9 K/uL (0.1-1.3); Basophils % 0.2 % (0-1.3); Eosinophils % 0.8 % (0-4.4); Hematocrit 40.8 % (39.6-49.0); Lymphocytes % 3.6 % (15.3-44.8); MPV 9.3 fL (7.6-11.3); Monocytes % 8.2 % (3.3-12.3); RBC Red Blood Cell Count 4.45 M/uL (4.33-5.43)
--- NOTE | 2018-07-07 20:25 | PN ---
Date of Progress Note: 07/07/2018 Subjective: The patient was seen this morning for followup. No new complaints or problems reported. The patient was lying in bed. was at bedside. Objective: HEENT: Unremarkable. Lungs: Bilateral scattered wheezing present, but not in any distress. Heart: Sounds normal. Abdomen: Soft. Bowel sounds normal. No guarding, rigidity, tenderness, or distention. Extremities: No leg edema. Laboratory Data: White count 11.5, hemoglobin 13.6, platelets 131. Chest x-ray; left pulmonary opac ity appears resolved, mild right pulmonary opacities present. Sodium 148, potassium 3.6, chloride 10 5, bicarb 37, BUN 41, creatinine 1.28, glucose 107. Impression: 1.Congestive heart failure, chronic, systolic, with acute exacerbation. 2.Pneumonia. 3.Ventricular tachycardia. 4.Atrial fibrillation, paroxysmal. Plan: We will continue current medications. The patient's COPD problem is stable. Congestive heart failure problem has improved. We will continue Asmanex inhaler as he is currently taking along with current nebulizer treatment antibiotics. His blood culture was positive skin contaminant, so we paulette l discontinue IV vancomycin, and we will go ahead and add doxycycline per order. The patient is medically stable for transfer out of ICU to regular room. See copy of transfer order for more detail sMarion PEREZ/RADHA Voice ID: [id number] Report ID: [id number]
[2018-07-07 20:28] LABS: Blood Morphology Comment NOT SEEN (NOT SEEN); Platelet Estimate ADEQ; Urine White Blood Cell Casts OK
[2018-07-07] MEDS: DOXYCYCLINE 100 MG CAP PO SCH (21:45)
[2018-07-08] MEDS: PIPER/TAZO/NS 3.375gm 3.375 GM/100 ML BAG IVPB SCH ×3 (01:05→17:00)
[2018-07-08] MEDS: IPRATROPIUM BROM 0.5MG/2.5ML NEB SCH ×4 (01:15→20:00)
[2018-07-08 04:38] LABS: Absolute Lymphocytes (CBC) 0.6 K/uL (0.7-4.9); Absolute Monocytes 1.1 K/uL (0.1-1.3); Absolute Neutrophil 7.1 K/uL (1.8-8.0); Basophils % 0.1 % (0-1.3); Hematocrit 39.1 % (39.6-49.0); Lymphocytes % 6.3 % (15.3-44.8); MPV 8.8 fL (7.6-11.3); Monocytes % 12.5 % (3.3-12.3); RBC Red Blood Cell Count 4.22 M/uL (4.33-5.43)
[2018-07-08 04:59] LABS: Magnesium 2.1 mg/dL (1.8-2.4); Potassium 3.2 mmol/L (3.5-5.1)
[2018-07-08] MEDS ORDERED: POTASSIUM 25 MEQ EFFERV TAB PO ONE (09:00)
[2018-07-08] MEDS: METOPROLOL XL 25 MG TAB PO SCH (09:51)
[2018-07-08] MEDS: AMIODARONE HCL 200 MG TAB PO SCH (09:51)
[2018-07-08] MEDS: FLUOXETINE 20 MG CAP PO SCH (09:51)
[2018-07-08] MEDS: SACUBITRIL/VALSARTAN 49/51 MG TAB PO SCH ×2 (09:51→21:47)
[2018-07-08] MEDS: ENOXAPARIN 40 MG/0.4 ML SQ SCH (09:51)
[2018-07-08] MEDS: DOXYCYCLINE 100 MG CAP PO SCH ×2 (09:51→21:47)
[2018-07-08] MEDS: ASPIRIN 81 MG CHEWABLE TABLET PO SCH (09:52)
[2018-07-08] MEDS: FUROSEMIDE 40 MG/4 ML VIAL IV SCH ×2 (09:52→16:31)
[2018-07-08] MEDS: MULTIVITAMIN TAB PO SCH (09:52)
[2018-07-08] MEDS: SPIRIVA 18 MCG IH SCH (09:53)
[2018-07-08] MEDS: ASMANEX IH SCH ×2 (09:53→21:47)
--- NOTE | 2018-07-08 14:57 | PN ---
Mr. Romero is doing as well as can be expected, not well because of multiple medical problems. He c ontinues to be DNR, but he has had no further AFib. No evidence of hepatotoxicity with amiodarone so far. So I think he is just about ready to be discharged home and see how things go. He has had a d efibrillator reprogramming that should take care of some of the VT that caused him trouble, and he is on amiodarone. PAULO/RADHA Voice ID: [id number] Report ID: [id number]
--- NOTE | 2018-07-08 15:57 | PN ---
Date of Progress Note: 07/08/2018 Subjective: The patient was seen this morning for followup. No new complaints or problems reported. Vital signs reviewed. He is feeling much better. He was sitting in the chair, eating breakfast an d earlier this morning, he did ambulate with his son from his room to the nurses station and came hillary k. Objective: Vital Signs: Reviewed. HEENT: Unremarkable. Lungs: Clear to auscultation. No wheezing. No rales. Heart: Sounds normal. Abdomen: Soft. Bowel sounds normal. No guarding, rigidity, tenderness, distention. Extremities: No leg edema. Laboratory Data: White count 9.1, hemoglobin 13, platelets 125. Sodium 147, potassium 3.2, chloride 102, bicarb 40, BUN 31, creatinine 1.10, glucose 114, magnesium 2.1. Impression: 1.Pneumonia. 2.Congestive heart failure, chronic, systolic, with acute exacerbation. 3.Acute exacerbation of chronic obstructive pulmonary disease. 4.Ventricular tachycardia. 5.Paroxysmal atrial fibrillation. Plan: We will continue current medications including amiodarone and his current diuretic medications as well as antibiotics. We will also continue his current inhaler. We will see him tomorrow for fo llowup. Ambulation with family member using walker was advised. I will see him tomorrow. Possible discharge to go home either tomorrow or day after tomorrow. ANA/MODL Voice ID: [id number] Report ID: [id number]
[2018-07-08 16:51] LABS: Potassium 3.3 mmol/L (3.5-5.1)
[2018-07-08] MEDS ORDERED: POTASSIUM CL SA 10 MEQ TAB PO ONE (18:00)
[2018-07-08] MEDS ORDERED: AMIODARONE IV ONE (19:00)
[2018-07-09] MEDS: PIPER/TAZO/NS 3.375gm 3.375 GM/100 ML BAG IVPB SCH ×2 (00:36→09:22)
[2018-07-09] MEDS ORDERED: KCL 20 MEQ/100 mL IVPB 20 MEQ/100 ML BAG IV SCH (01:00)
[2018-07-09] MEDS: IPRATROPIUM BROM 0.5MG/2.5ML NEB SCH ×2 (02:00→07:41)
[2018-07-09 05:16] LABS: Potassium 3.8 mmol/L (3.5-5.1)
[2018-07-09] MEDS ORDERED: POTASSIUM 25 MEQ EFFERV TAB PO ONE (05:37)
[2018-07-09 06:46] VITALS: BMI 25.8
[2018-07-09 07:47] VITALS: O2SAT 98
[2018-07-09] MEDS: METOPROLOL XL 25 MG TAB PO SCH (09:21)
[2018-07-09] MEDS: SACUBITRIL/VALSARTAN 49/51 MG TAB PO SCH (09:21)
[2018-07-09] MEDS: ASPIRIN 81 MG CHEWABLE TABLET PO SCH (09:21)
[2018-07-09] MEDS: ENOXAPARIN 40 MG/0.4 ML SQ SCH (09:21)
[2018-07-09] MEDS: AMIODARONE HCL 200 MG TAB PO SCH (09:21)
[2018-07-09] MEDS: DOXYCYCLINE 100 MG CAP PO SCH (09:21)
[2018-07-09] MEDS: MULTIVITAMIN TAB PO SCH (09:22)
[2018-07-09] MEDS: FLUOXETINE 20 MG CAP PO SCH (09:22)
[2018-07-09] MEDS: FUROSEMIDE 40 MG/4 ML VIAL IV SCH (09:23)
[2018-07-09] MEDS: SPIRIVA 18 MCG IH SCH (09:23)
[2018-07-09] MEDS: ASMANEX IH SCH (09:23)
[2018-07-09 10:26] VITALS: BP 121/78; TEMP 97
--- NOTE | 2018-07-09 13:55 | PN ---
Mr. Romero remains free of ventricular tachycardia. I would recommend he be discharged. We should do liver function tests in about 1 month. PAULO/RADHA Voice ID: [id number] Report ID: [id number]
--- NOTE | 2018-07-10 01:07 | DS ---
Date of Discharge: 07/09/2018 Disposition: Discharged to go home. Physical Examination: HEENT: Unremarkable. Lungs: Clear to auscultation. Heart: Sounds normal. Abdomen: Soft. Bowel sounds normal. No guarding, rigidity, tenderness, distention. Extremities: No leg edema. Laboratory Data: Labs done during this hospitalization; last white count 9.1, hemoglobin 13, platele ts 125. This was done yesterday. Last chemistry from today; sodium 145, potassium 3.8, chloride 103 , bicarb 38, BUN 29, creatinine 1.18, glucose 109. The patient's sputum culture grew Staphylococcus aureus. Hospital Course: An 83-year-old male patient admitted to the hospital with complaints of shortness o f breath. Please see dictated H and P for more information. When the patient first came into emerge ncy room, white count was 6.9. Chest x-ray had shown changes suspicious for pneumonia and he was adm itted to the hospital with pneumonia problem. The patient also had acute exacerbation of his chronic systolic congestive heart failure problem during this hospitalization. Initially, he was on medical floor and subsequently, he was transferred to ICU because of his worsening dyspnea and hypoxia probl em. Cardiology consultation was obtained from Dr. Saha and Dr. Dubon. The patient had echocardi ogram done at ammonia operator's office within few days prior to this admission and I did talk to Dr. Elizondo about result. Ejection fraction was around 15% and it has gotten worse compared to before. Whi le he was in ICU, we treated him with aggressive IV diuretic therapy. His usual home medications wer e continued. He was given antibiotics for pneumonia problem, oxygen nebulizer treatment was given to him. The patient had intermittent episodes of ventricular tachycardia and he had 2 episodes where h is defibrillator delivered shock to him because of ventricular tachycardia. Song Lyricist helped with adjustment on his defibrillator. He also had paroxysmal atrial fibrillation while he was in ICU. W ith this cardiac arrhythmia, we discontinued albuterol nebulizer treatment and continued him on Atrov ent nebulizer treatment. The patient's family picked up sample of Asmanex inhaler from the office an d we started that. The patient showed significant improvement with this inhaler along with other kimber atment provided to him. Once his condition was stable in ICU, he was [facility]. He started ambulating well and overall condition improved and today, [facility]. He did require IV amiodarone drip in the ICU when his condition was unst able with cardiac arrhythmia. There is a history of side effect on liver from amiodarone in the past when he was under care of a ammonia operator in [place] and ammonia operator has recommended to give low-dos e amiodarone. Initially in the ICU, he received IV amiodarone and as per recommendation from cardiol ogist, we reduced the dose to 200 mg p.o. daily and we will continue to monitor his blood work on an outpatient basis. Final Diagnoses: 1.Pneumonia. 2.Congestive heart failure, chronic, systolic, with acute exacerbation. 3.Ventricular tachycardia. 4.Paroxysmal atrial fibrillation. 5.Acute exacerbation of COPD. 6.Prostate cancer. 7.Hypertension. 8.Anemia. 9.Hypokalemia. 10.Gastroesophageal reflux disease. Discharge Medications And Instructions: 1.Continue all prior home medication except stop furosemide 20 mg daily dose and start furosemide 40 mg twice a day. 2.Amiodarone 200 mg p.o. daily. 3.Asmanex 100 mcg dose, take 2 puffs by mouth 2 times a day. Rinse mouth with water after each use. 4.Doxycycline 100 mg twice a day. 5.Follow up in my office in 2 weeks and follow up with ammonia operator in 2 weeks. ANA/MODL Voice ID: [id number] Report ID: [id number]
== END 2018-07-09 12:33 | disposition home or self-care (01) | DRG 193 ==
LOC: ER 13:34 → ERHOLD 17:48 → 4TH 20:25 → 3RD-ICU 07-03 16:49 → 2ND 07-07 11:00
PROVIDERS: ADMIT Internal Medicine; ATTEND Internal Medicine
PROC: 5A2204Z Restoration of Cardiac Rhythm, Single (ICD-10-PCS; principal; 2018-07-03)
PROC: 5A09457 Assistance with Respiratory Ventilation, 24-96 Consecutive Hours, Continuous Positive Airway Pressure (ICD-10-PCS; 2018-07-03)
PROC: 02HV33Z Insertion of Infusion Device into Superior Vena Cava, Percutaneous Approach (ICD-10-PCS; 2018-07-04)
DX: J18.9 Pneumonia, unspecified organism (principal); I50.23 Acute on chronic systolic (congestive) heart failure; J44.0 Chronic obstructive pulmonary disease with (acute) lower respiratory infection; J44.1 Chronic obstructive pulmonary disease with (acute) exacerbation; I13.0 Hypertensive heart and chronic kidney disease with heart failure and stage 1 through stage 4 chronic kidney disease, or unspecified chronic kidney disease; I47.2 Ventricular tachycardia; R09.02 Hypoxemia; N18.3 Chronic kidney disease, stage 3 (moderate); I48.0 Paroxysmal atrial fibrillation; Z85.46 Personal history of malignant neoplasm of prostate; E87.6 Hypokalemia; K21.9 Gastro-esophageal reflux disease without esophagitis; D64.9 Anemia, unspecified; Z95.810 Presence of automatic (implantable) cardiac defibrillator; R41.0 Disorientation, unspecified; I25.10 Atherosclerotic heart disease of native coronary artery without angina pectoris; Z95.5 Presence of coronary angioplasty implant and graft
CPT/HCPCS: 36415; 71045; 71046; 80048; 80053; 80076; 80202; 81003; 82805; 83605; 83735; 83880; 84132; 84484; 85025; 85610; 87040; 87070; 87077; 87186; 87205; 87804; 93005; 94660; 94760; 96374; 96375; 97161; 99285; J0282; J0456; J0696; J1630; J1650; J1940; J2543; J2920; J2930; J7060

== ENCOUNTER 2018-07-09 21:46 | Emergency (ER) | payer OTHER, MEDICARE ==
--- OUTSIDE RECORDS SUMMARY | 2018-07-09 21:49 | XMS REPORT | Clinical Summary ---
:1935 Author Organization [facility] Address [address] [place] [address] Care Team Providers Name Role Phone Asked, [...] Not on file Implants Implanted Type Area Roof Fixer Device Shelf Model / Identifier Expiration Serial / Date Lot [employer] Next Generation Fine Wire Drawer-D 40 - [id number] - [id number] IP CARDIAC N/A: N/A [facility] 07/15/2017 [id number] / Implanted: Qty: 1 on 11/05/2015 by Minor Fuentes MD DEFIB [id number] / [id number] Defibrillator, Pacemaker Results Not on fileafter 07/08/2017 Insurance Payer Benefit Plan / Group Subscriber ID Type Phone Address AARP AARP SUPPLEMENT xxxxxxxxxxx Commercial MEDICARE MEDICARE PART A AND B xxxxxxxxxx Medicare [place], [place] ([place]) [place] [address] Advance Directives Patient has advance care planning documents on file. For more information, please contact:Benitez Darnell[address] [place] [address]
--- OUTSIDE RECORDS SUMMARY | 2018-07-09 21:50 | XMS REPORT | Continuity of Care Document ---
:1935 Author Organization Interface Problems Problem Status Onset Classification Date Comments Source Date Reported R06.02 - Active 04/20/19 [facility] SHORTNESS OF 17 [facility] BREATH Depressive Active 09/03/19 Problem 08/11/2017 Data OPID disorder<sup>9, 15 migrated Jesus 10</sup> from [facility] on 10/22/14. UNK Active 02/22/20 [address] [place] 724.02/724.4/72 Active 02/22/20 4.2 14 [place] SURGERY Active 02/22/20 14 [place] PAIN AROUND EYE Active 06/18/[address] Trochanteric Active 02/01/20 Problem 08/11/2017 Data OPID bursitis<sup>16 13 migrated Jesus </sup> from [facility] on 09/13/14. Acute Resolved 12/27/19 Problem 08/11/2017 Data OPID pharyngitis<sup 13 migrated Jesus >1, 2</sup> from [facility] on 10/31/14. Cellulitis and Resolved 09/18/19 Problem 08/11/2017 Data OPID abscess of 13 migrated Jesus upper from [facility] arm<sup>4, [facility] 5</sup> on 10/31/14. 401.9 [...] Active Problem 08/11/2017 Data OPID obstructive migrated [facility] lung from [facility] disease<sup>6</ [facility] sup> on 09/13/14. 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 Coronary Active Problem 08/11/2017 Data [facility] atherosclerosis [facility] <sup>8</sup> from [facility] on 09/13/14. Dyslipidemia<brandt Active Problem 08/11/2017 Data OP[facility] p>11</sup> [facility] on 09/13/14. GERD - Active Problem 08/11/2017 OPID Gastro-esophage Jesus al reflux Medical disease Group HTN - Active Problem 08/11/2017 [facility]pertension [facility] Hypertensive Active Problem 08/11/2017 Data OPID disorder<sup>12 migrated [facility] </sup> from Medical [facility] on 09/13/14. Malignant tumor Active Problem 08/11/2017 Data OPID of [facility] prostate<sup>13 from Medical </sup> [facility] on 09/13/14. Obesity Active Problem 08/11/2017 [facility] Pain Active Problem 08/11/2017 OPID [place], [facility] Group Pinched Active Problem 08/11/2017 back OPID nerve<sup>14</s Jesus up> Medical Group Pulmonary Active Problem 08/11/2017 Data OP[facility] emphysema<sup>1 migrated [facility] 5</sup> from [facility] on 09/13/14. Shortness of Resolved Problem 08/11/2017 OPID breath on [facility] exertion Medical Group Pinched Active Problem 03/01/2014 1back nerve<sup>1</brandt [place] p> SPIN STEN,LUMBR Active WO LORETO [facility] LUMBOSACRAL Active NEURITIS NOS [facility] LUMBAGO Active [facility] Medications Medication Details Route Status Patient Ordering Order Source Instructions Provider Date tiotropium See Active Medical 0.018 MG/ACTUAT Instructions, # 2018 Group Inhalant Powder 30 unknown unit, [Spiriva] INHALE ONE CAPSULE BY MOUTH EVERY DAY, Pharmacy: [place] [id number] Atropine 0.5 mg, 5 mL, Inactive Route: IVP, Drug 2013 [facility] form: INJ, ONCE, Dosing Weight 100, kg, PRN Bradycardia, Start date: 02/25/14 21:56:00, for symptomatic bradycardia HR Nitroglycerin 0.4 mg, 1 tab, Inactive 0.4 MG Route: SL, Drug 2013 [facility] Sublingual form: TAB, Tablet Q5Min, Dosing Weight 100, kg, PRN Chest Pain, Start date: 02/25/14 21:55:00, Duration: 30 day, Stop date: 03/27/14 21:54:00Notes: (Same as:Nitroquick, Nitrostat) "Do Not Crush" Sublingual tablet Famotidine 20 20 mg, 1 tab, No Longer MG Oral Tablet Route: PO, Drug Active 2013 [facility] [Pepcid] form: TAB, Q12H, Dosing Weight 100, kg, Start date: 02/25/14 21:00:00, Duration: 30 day, Stop date: 03/27/14 9:00:00Notes: (Same as: Pepcid) Dexamethasone 4 mg, 1 mL, No Longer Route: IVP, Drug Active 2013 [facility] form: INJ, Q6H, Dosing Weight 100, kg, Start date: 02/25/14 18:00:00, Duration: 30 day, Stop date: 03/27/14 12:00:00Notes: Concentration: 4mg/ml Cefazolin 1 gm, 100 mL, No Longer Route: IVPB, Active 2013 [facility] Drug form: INJ, ABXQ8H, Dosing Weight 100, kg, Start date: 02/25/14 15:00:00, Duration: 30 day, Stop date: 03/27/14 7:00:00 Zofran 4 mg, 2 mL, No Longer Route: IV, Drug Active 2013 [facility] form: INJ, Q8H, Dosing Weight 100, kg, [...] 03/27/14 13:00:00 Omeprazole 0 Refill(s) Active 2013 [facility] Potassium 20 mEq, 1 tab, Inactive [place] [...] 06/18/13 0:00:00 Ancef 2 gm, Route: Inactive [facility] IVPB, ONCE, 2013 [facility] 100, kg, Priority: Routine, Start date: 06/17/13 12:49:00, Duration: 1 doses or times, Stop date: 06/17/13 12:49:00 Prozac 0 Refill(s) Active [facility] 2013 [facility] Niacin 0 Refill(s) Active [facility] 2013 [facility] Isosorbide 0 Refill(s) Active [facility] Dinitrate 2013 [facility] Captopril 0 Refill(s) Active [facility] 2013 [facility] Lasix 0 Refill(s) Active [facility] 2013 [facility] Spiriva 0 Refill(s) Active [facility] 2013 [facility] Aspirin / 0 Refill(s) Active [facility] Calcium [address] [place] [address] Center Allergies, Adverse Reactions, Alerts Substance Category [...] from Group OBS ; Data migrated from [employer] on 05/19/2015. pneumococcal completed GE Result OPID 23-valent 0 Comment: ALEX Lee vaccine<sup>4</s pneumovax. Medical up> Migrated from Group OBS ; Data migrated from [employer] on 05/19/2015. Results Order Name Results Value Reference Date Interpretation Comments Source Range Chest 2 Chest 2 EXAM: XR CHEST 2 VIEWS 04/20 - OPID views DX views - [place] DATE: 04/20/2016 2:24 PM TOOLROOM KEEPER Read by: Timur Gray MD Dictated Date/time: [...] - [facility] CT DATE: 03/15/2016 12:29 PM TOOLROOM KEEPER Read by: Jackie Choi MD Dictated Date/time: [...] BLOOD BANK Antibody Negative 02/25 RESULTS Scr [facility] (02/25/14 1:06 PM) BLOOD BANK ABO/Rh A POS 02/25 RESULTS /2013 [facility] HEMATOLOGY RBC 4.35 M/CMM 4.70 - 02/25 MH 6.10 [facility] HEMATOLOGY Hgb 13.0 g/dL 14.0 - 02/25 18.0 [facility] HEMATOLOGY WBC 9.8 K/CMM 3.7 - 10.4 02/25 [facility] HEMATOLOGY Hct 39.2 % 42.0 - 02/25 54.0 /2013 [facility] HEMATOLOGY MCV 90.1 fL 80.0 - 02/25 94.0 /2013 [facility] HEMATOLOGY MCH 29.8 pg 27.0 - 02/25 31.0 /2013 [facility] HEMATOLOGY MCHC 33.1 g/dL 32.0 - 02/25 36.0 /2013 [facility] HEMATOLOGY RDW 14.4 % 11.5 - 02/25 MH 14.5 [facility] HEMATOLOGY Platelet 187 K/CMM 133 - 450 02/25 [facility] HEMATOLOGY MPV 8.0 fL 7.4 - 10.4 02/25 /2013 [facility] HEMATOLOGY Basophils 0.8 % 0.0 - 1.0 02/25 /2013 [facility] HEMATOLOGY Eosinophils 10.6 % 0.0 - 4.0 02/25 [facility] HEMATOLOGY Eosinophils 1.0 K/CMM 0.0 - 0.5 02/25 MH # /2013 [facility] HEMATOLOGY Basophils # 0.1 K/CMM 0.0 - 0.2 02/25 [facility] HEMATOLOGY Monocytes # 1.1 K/CMM 0.0 - 0.8 02/25 [facility] HEMATOLOGY Segs-Bands # 6.1 K/CMM 1.5 - 8.1 02/25 [facility] HEMATOLOGY Lymphocytes 1.4 K/CMM 1.0 - 5.5 02/25 # /2013 [facility] HEMATOLOGY Segs 62.8 % 45.0 - 02/25 75.0 [facility] HEMATOLOGY Monocytes 11.0 % 2.0 - 12.0 02/25 [facility] HEMATOLOGY Lymphocytes 14.8 % 20.0 - 02/25 40.0 [facility] CHEM PANEL eGFR 87 06/17 2Result Comment: The eGFR is calculated using the CKD-EPI formula. In most young, healthy individuals the eGFR will be >90 mL/ min/1.73m2. The eGFR declines with age. An eGFR of 60-89 may be normal in [facility] mL/min/1.7 some populations, particularly the elderly, for whom the CKD-EPI formula has not been extensively validated. Use of the eGFR is not recommended in the following populations: [address] Individuals with unstable creatinine concentrations, including [...] Creatinine 0.8 mg/dL 0.5 - 1.4 06/17 [facility] CHEM PANEL Sodium Lvl 140 meq/L 135 - 145 06/17 [facility] CHEM PANEL Potassium 5.2 meq/L 3.5 - 5.1 06/17 1Result Comment: [facility] Moderately Hemolyzed. CHEM PANEL Calcium Lvl 8.4 mg/dL 8.5 - 10.5 06/17 [facility] CHEM PANEL Chloride Lvl 108 meq/L 95 - 109 06/17 [facility] CHEM PANEL CO2 27 meq/L 24 - 32 06/17 [facility] CHEM PANEL AGAP 10.2 meq/L 10.0 - 06/17 20. [facility] CHEM PANEL Glucose Lvl 87 mg/dL 70 - 99 06/17 3Interpretive Data: Adult reference range values reflect the clinical guidelines of the [place] [employer]. [facility] CHEM PANEL BUN 12 mg/dL 7 - 22 06/17 [facility]2013 [facility] Hip min 2 Hip min 2 EXAM: Right hip series. 04/22 - OPID views [facility] /2013 - [place] DATE: April 22, 2013. Read by: Jackie [...] Source Temperature Oral (F) 97.6 F 02/26/2014 [facility] Heart Rate 87 02/26/2014 [facility] Respitory Rate 19 02/26/2014 [facility] Systolic (mm Hg) 156 02/26/2014 [facility] Diastolic (mm Hg) 64 02/26/2014 [facility] Respitory Rate 19 02/26/2014 [facility] Systolic (mm Hg) 137 02/26/2014 [facility] Diastolic (mm Hg) 77 02/26/2014 [facility] Heart Rate 80 02/26/2014 [facility] Temperature Oral (F) 98.4 F 02/26/2014 [facility] Diastolic (mm Hg) 74 02/26/2014 [facility] Systolic (mm Hg) 136 02/26/2014 [facility] Heart Rate 85 02/26/2014 [facility] Respitory Rate 16 02/26/2014 [facility] Temperature Oral (F) 98.4 F 02/26/2014 [facility] BMI Calculated 29.09 02/26/2014 [facility] Height 185.42 cm 02/26/2014 [facility] Weight 100 02/26/2014 [facility] Height 185.42 cm 02/25/2014 [facility] Weight 100 02/25/2014 [facility] BMI Calculated 29.09 02/25/2014 [facility] Respitory Rate 18 06/17/2013 [facility] Systolic (mm Hg) 144 06/17/2013 [facility] Diastolic (mm Hg) 70 06/17/2013 [facility] Systolic (mm Hg) 119 06/17/2013 [facility] Respitory Rate 15 06/17/2013 [facility] Diastolic (mm Hg) 66 06/17/2013 [facility] Systolic (mm Hg) 117 06/17/2013 [facility] Respitory Rate 16 06/17/2013 [facility] Diastolic (mm Hg) 67 06/17/2013 [facility] Heart Rate 68 06/17/2013 [facility] Weight 100 06/17/2013 [facility] Height 185.42 cm 06/17/2013 [facility] BMI Calculated 29.09 06/17/2013 [facility] Encounters Location Location Encounter Encounter Reason Attending ADM DC Status Source Details Type Number For Provider Date Date Visit OD [id number] 401.9 - CARINE 08/17 Active OPID 0 HYPERTEN [facility] OBS Day [id number] _MAPID:E Luis 06/17 06/18 [facility] Surgery [id number] NCNTRRFV [facility] /2013 [facility] 1 [id number] [facility] OBS [id number] Wilber 02/26 02/26 [facility] Observation [address] [facility] Outpatient [id number] CARINE 10/23 [facility] 1 [facility] Outpatient [id number] CARINE 01/15 [facility] 2 [facility] Outpatient [id number] CARINE07/28 [facility] 3 [facility] Outpatient [id number] CARINE 10/13 [facility] 4 [facility] Outpatient [id number] CARINE 10/19 [facility] [place] Outpatient [id number] NURSE VISIT 12/21 [facility] [place] Outpatient [id number] CARINE 01/13 [facility] Outpatient [id number] CARINE 03/14 [facility] 8 [place] [facility] Outpt Diag [id number] Carine 03/15 03/16 [facility] Outpatient Services 2 [facility] Outpt Diag [id number] Farshad 04/20 04/21 [facility] Outpatient Services 3 [facility] [place] [facility] [place] [facility] Phone [id number] 08/07 08/09 Primary Message [facility] [place] Procedures Procedure Code Date Perfomer Comments Source ACD - Automatic [id number] 11/24/2009 [facility] cardiac [place] defibrillator procedure ACD - Automatic [id number] 11/24/2009 Medical cardiac Group defibrillator procedure ACD - Automatic [id number] 11/24/2009 OP[facility] cardiac [place] defibrillator procedure Lobectomy of lung [id number] 04/17/2005 OPID [place] Lobectomy of lung [id number] 04/17/2005 Medical Group Lobectomy of lung [id number] 04/17/2005 [facility] Lobectomy of lung [id number] 04/17/2005 OPID [place] Bronchoscopy [id number] 04/17/2003 OPID [place] Bronchoscopy [id number] 04/17/2003 Medical Group Bronchoscopy [id number] 04/17/2003 [facility] Bronchoscopy [id number] 04/17/2003 [facility] [place] Prostatectomy [id number] 04/17/2000 OP[facility] Prostatectomy [id number] 04/17/2000 Medical Group Prostatectomy [id number] 04/17/2000 [facility] Prostatectomy [id number] 04/17/2000 OP[facility] [place] Stent placement [id number] OPID [facility] Stent placement [id number] Medical Group Stent placement [id number] OPID [place] ACD - Automatic [id number] [facility] defibrillator procedure Stent placement [id number] [facility]
--- OUTSIDE RECORDS SUMMARY | 2018-07-09 21:50 | XMS REPORT | CCD ---
:1935 Author Organization [facility] Outpatient Imaging - [facility] Team Providers Name Role Phone Rafael Reyes Consulting Provider Allergies, Adverse Reactions, Alerts Substance Reaction Status NKDA Active Problem List Condition Effective Dates Status Pain Active
--- OUTSIDE RECORDS SUMMARY | 2018-07-09 21:50 | XMS REPORT | CCD ---
:1935 Author Organization [facility] Outpatient Imaging - [facility] Team Providers Name Role Phone Rafael Reyes Consulting Provider Allergies, Adverse Reactions, Alerts Substance Reaction Status NKDA Active Problem List Condition Effective Dates Status Pain Active
--- NOTE | 2018-07-10 03:10 | EDPHYS ---
Physician Documentation [facility] Name: Jakob Romero Age: 83 yrs Sex: Male : 1935 Arrival Date: 07/09/2018 Time: 21:48 Bed 5 Private MD: Ruiz Cueto C ED Physician El Witt HPI: 07/09 22:12 This 83 yrs old Male presents to ER via Wheelchair with complaints of rn underarm swelling/pain. 22:12 The patient or guardian complains of pain, swelling. The complaints affect the right rn bicep and right antecubital area. Onset: The symptoms/episode began/occurred today. Severity of symptoms: At their worst the symptoms were mild. The patient has not experienced similar symptoms in the past. The patient has been recently been admitted at [facility]. Reports admitted for 2 weeks at this hospital, discharged today, PICC line removed today, was already bruised and family reports bleeding for long time after PICC line removed, now more swollen and having pain along with intermittent tingling of RUE. . Historical: - Allergies: 22:04 No Known Allergies; ea - Home Meds: 22:04 aspirin 81 mg Oral chew 1 tab once daily [Active]; furosemide 40 mg Oral tab 1 tab once ea daily [Active]; Potassium Chloride Oral [Active]; metoprolol succinate 25 mg Oral Tb24 1 tab once daily [Active]; Sprivia 18 mcg daily [Active]; fluoxetine 20 mg Oral cap 1 cap once daily [Active]; Isosorbide Dinitrate Oral [Active]; Captopril Oral [Active]; - PMHx: 22:04 Angina; COPD; Depression; Hypertension; Myocardial infarction; Prostate Cancer; ea - PSHx: 22:04 lung, lower right lobectomy; sebatous cysts; Tonsillectomy; defibrilator and pace ea maker; Heart stents; lower right lobe of lung removed; prostate; - Immunization history:: Adult Immunizations up to date. - Social history:: Smoking status: Patient/guardian denies using tobacco. - Ebola Screening: : No symptoms or risks identified at this time. - Family history:: not pertinent. - Hospitalizations: : No recent hospitalization is reported. ROS: 22:12 Constitutional: Negative for fever, chills, and weight loss, Neck: Negative for injury, rn pain, and swelling, Cardiovascular: Negative for chest pain, palpitations, and edema, Respiratory: Negative for shortness of breath, cough, wheezing, and pleuritic chest pain, Abdomen/GI: Negative for abdominal pain, nausea, vomiting, diarrhea, and constipation, MS/Extremity: + RUE pain Skin: + bruising to RUE Neuro: + intermittent tingling RUE Exam: 22:12 Constitutional: This is a well developed, well nourished patient who is awake, alert, rn and in no acute distress. MS/ Extremity: Pulses equal, no cyanosis. Neurovascular intact. Full, normal range of motion. + right upper-inner arm swelling with ecchymosis. No warmth/erythema/break in skin. Vital Signs: 22:05 BP 114 / 87; Pulse 79; Resp 20; Temp 98.1(O); Pulse Ox 97% on 2 lpm NC; Weight 88 kg; ea Height 5 ft. 9 in. (175.26 cm); 23:00 BP 111 / 65; Pulse 79; Resp 18; Pulse Ox 97% on 2 lpm NC; lp1 07/10 00:00 BP 123 / 76; Pulse 79; Resp 18; Pulse Ox 100% on 2 lpm NC; lp1 02:00 BP 101 / 62; Pulse 73; Resp 18; Pulse Ox 96% on 2 lpm NC; lp1 07/09 22:05 Body Mass Index 28.65 (88.00 kg, 175.26 cm) ea Procedures: 00:19 Peripheral line: by aseptic technique a peripheral line was placed in the left rn antecubital vein. MDM: 07/09 21:57 Patient medically screened. rn 07/10 03:05 Differential diagnosis: hematoma, DVT. Data reviewed: vital signs, nurses notes, rn radiologic studies, CT scan, ultrasound, and as a result, I will discharge patient. Counseling: I had a detailed discussion with the patient and/or guardian regarding: the historical points, exam findings, and any diagnostic results supporting the discharge/admit diagnosis, radiology results, the need for outpatient follow up, to return to the emergency department if symptoms worsen or persist or if there are any questions or concerns that arise at home. Response to treatment: the patient's symptoms have markedly improved after treatment, and as a result, I will discharge patient. Special discussion: I discussed with the patient/guardian in detail that at this point there is no indication for admission to the hospital. It is understood, however, that if the symptoms persist or worsen the patient needs to return immediately for re-evaluation. Based on the history and exam findings, there is no indication for further emergent testing or inpatient evaluation. I discussed with the patient/guardian the need to see the primary care provider for further evaluation of the symptoms. ED course: Ultrasound showed large amount of swelling around right biceps, arterial u/s normal with normal distal pulses, unable to locate mid veins, most likely due to compression by hematoma/swelling, thus in the absence of non-compressible veins, can deduce unlikely to be dvt. CT arm with contrast, infiltrated on left arm, and shows soft tissue/subQ and biceps swelling, likely from hematoma. Pt had PICC and blood thinner while hospitalized and "Bled a lot" when PICC pulled. Explained all of this to patient and family, comfortable going home with heat to affected area, and return precautions. Patient states markedly better with increased ROM and not feeling pain after just heat packs, which also point to hematoma. . 07/09 22:10 Order name: IV Start; Complete Time: 01:50 rn 07/09 22:12 Order name: UPPER EXTREMITY VENOUS UNILATE EDMS 07/09 22:13 Order name: Upper Ext Artery Uni Mike EDMS 07/10 01:33 Order name: Upper Ext Wo Con W/ Mpr EDMS Administered Medications: No medications were administered Disposition: 07/10/18 03:09 Discharged to Home. Impression: Hematoma, right upper arm. - Condition is Stable. - Discharge Instructions: Hematoma, PICC Removal, Care After. - Medication Reconciliation Form, Thank You Letter, Antibiotic Education, Prescription Opioid Use form. - Follow up: Ruiz Cueto MD; When: 1 - 2 days; Reason: Recheck today's complaints, Re-evaluation by your physician. - Problem is new. - Symptoms have improved. Signatures: Dispatcher [employer] EDMS El Witt MD MD rn Pena, Laura, RN RN lp1 Funmilayo Rivas RN RN ea Corrections: (The following items were deleted from the chart) 07/09 22:12 22:10 Extremity Venous Uni Ltd+US.RAD.BRZ ordered. EDSD EDMS 22:13 22:10 Lower Extremity Artery Uni Ltd+US.RAD.BRZ ordered. EDSD EDSD 23:16 22:20 Extremity Upper W/Wo Contr ordered. EDSD EDSD 07/10 01:33 07/09 23:16 Upper Extremity W/ Cont ordered. EDSD EDSD 07/10 03:39 03:09 07/10/2018 03:09 Discharged to Home. Impression: Hematoma, right upper arm. lp1 Condition is Stable. Forms are Medication Reconciliation Form, Thank You Letter, Antibiotic Education, Prescription Opioid Use. Follow up: Ruiz Cueto; When: 1 - 2 days; Reason: Recheck today's complaints, Re-evaluation by your physician. Problem is new. Symptoms have improved. rn
--- NOTE | 2018-07-10 03:10 | ER ---
Nurse's Notes [facility] Name: Jakob Romero Age: 83 yrs Sex: Male : 1935 Arrival Date: 07/09/2018 Time: 21:48 Bed 5 Private MD: Ruiz Cueto C Diagnosis: Hematoma, right upper arm Presentation: 07/09 22:00 Presenting complaint: Patient states: Reports swelling with some pain to right upper ea arm. Son reports pt was hospitalized for pneumonia and was discharged today. Reports he had a PICC line in that arm that was discontinued today. Transition of care: patient was not received from another setting of care. Onset of symptoms was July 09, 2018. Risk Assessment: Do you want to hurt yourself or someone else? Patient reports no desire to harm self or others. Initial Sepsis Screen: Does the patient meet any 2 criteria? No. Patient's initial sepsis screen is negative. Does the patient have a suspected source of infection? No. Patient's initial sepsis screen is negative. Care prior to arrival: cool compress. 22:00 Method Of Arrival: Wheelchair ea 22:00 Acuity: NETTE 3 ea Triage Assessment: 22:04 General: Appears uncomfortable, Behavior is calm, cooperative. Pain: Complains of pain ea in right bicep. Neuro: Level of Consciousness is awake, alert, obeys commands, Oriented to person, place. Respiratory: Airway is patent Respiratory effort is even, unlabored, Respiratory pattern is regular, symmetrical. Derm: Bruising that is dark purple, on right bicep. Historical: - Allergies: 22:04 No Known Allergies; ea - Home Meds: 22:04 aspirin 81 mg Oral chew 1 tab once daily [Active]; furosemide 40 mg Oral tab 1 tab once ea daily [Active]; Potassium Chloride Oral [Active]; metoprolol succinate 25 mg Oral Tb24 1 tab once daily [Active]; Sprivia 18 mcg daily [Active]; fluoxetine 20 mg Oral cap 1 cap once daily [Active]; Isosorbide Dinitrate Oral [Active]; Captopril Oral [Active]; - PMHx: 22:04 Angina; COPD; Depression; Hypertension; Myocardial infarction; Prostate Cancer; ea - PSHx: 22:04 lung, lower right lobectomy; sebatous cysts; Tonsillectomy; defibrilator and pace ea maker; Heart stents; lower right lobe of lung removed; prostate; - Immunization history:: Adult Immunizations up to date. - Social history:: Smoking status: Patient/guardian denies using tobacco. - Ebola Screening: : No symptoms or risks identified at this time. - Family history:: not pertinent. - Hospitalizations: : No recent hospitalization is reported. Screenin:06 Abuse screen: Denies threats or abuse. Nutritional screening: No deficits noted. ea Tuberculosis screening: No symptoms or risk factors identified. 22:18 Fall Risk None identified. lp1 Assessment: 22:17 Reassessment: Warm compress applied to right upper arm. General: Appears in no apparent lp1 distress. Behavior is appropriate for age. Pain: Complains of pain in right bicep Pain currently is 7 out of 10 on a pain scale. Neuro: Level of Consciousness is awake, alert, obeys commands. Cardiovascular: Patient's skin is warm and dry. Pulses are palpable in right radial artery. Respiratory: Respiratory effort is even, unlabored. GI: No signs and/or symptoms were reported involving the gastrointestinal system. : No signs and/or symptoms were reported regarding the genitourinary system. EENT: No signs and/or symptoms were reported regarding the EENT system. Derm: Bruising that is dark purple, on right bicep. Musculoskeletal: Circulation, motion, and sensation intact. 22:20 Reassessment: Ultrasound at bedside. lp1 07/10 00:16 Reassessment: Dr. Witt at bedside to assist with peripheral IV access for CT study; lp1 Warm compress continued to R upper arm. 01:27 Reassessment: Patient returned from CT at this time. lp1 01:40 Reassessment: Patient appears in no apparent distress at this time. Warm compress lp1 applied to L upper arm after CT. 02:50 Reassessment: Dr. Witt at bedside to discuss results with patient and family. lp1 Vital Signs: 07/09 22:05 BP 114 / 87; Pulse 79; Resp 20; Temp 98.1(O); Pulse Ox 97% on 2 lpm NC; Weight 88 kg; ea Height 5 ft. 9 in. (175.26 cm); 23:00 BP 111 / 65; Pulse 79; Resp 18; Pulse Ox 97% on 2 lpm NC; lp1 07/10 00:00 BP 123 / 76; Pulse 79; Resp 18; Pulse Ox 100% on 2 lpm NC; lp1 02:00 BP 101 / 62; Pulse 73; Resp 18; Pulse Ox 96% on 2 lpm NC; lp1 07/09 22:05 Body Mass Index 28.65 (88.00 kg, 175.26 cm) ea ED Course: 07/09 21:48 Patient arrived in ED. am2 21:48 Ruiz Cueto MD is Private Physician. am2 21:55 Brittny Romano, NIYA is Primary Nurse. lp1 21:57 El Witt MD is Attending Physician. rn 22:02 Triage completed. ea 22:06 Arm band placed on right wrist. Patient placed in an exam room, on a stretcher, on ea oxygen, on pulse oximetry. 22:18 Patient has correct armband on for positive identification. lp1 22:57 UPPER EXTREMITY VENOUS UNILATE In Process Unspecified. EDMS 22:58 Upper Ext Artery Uni Mike In Process Unspecified. EDMS 23:02 Ultrasound completed. Patient tolerated well. cy 23:29 Radiology exam delayed due to IV insertion attempt and/or patient not having nj appropriate IV at this time. 07/10 00:05 Missed attempt(s): 20 gauge in left forearm. Ultrasound guided peripheral IV. lp1 00:15 Accessed peripheral vein via ultrasound, utilizing dynamic ultrasound technique using lp1 ,sterile technique, per hospital protocol. Flushes easily. By Dr. Witt, to L upper arm. 01:33 Note: IV INFILTRATION DURING EXAM. RN AND DR NOTIFIED. nj 02:00 No provider procedures requiring assistance completed. lp1 02:18 Upper Ext Wo Con W/ Mpr In Process Unspecified. EDMS 03:09 Ruiz Cueto MD is Referral Physician. rn 03:15 IV discontinued, No redness/swelling at site. Pressure dressing applied. lp1 Administered Medications: No medications were administered Outcome: 03:09 Discharge ordered by . rn 03:20 Discharged to home via wheelchair, with family. lp1 03:20 Condition: good 03:20 Discharge instructions given to patient, family, Instructed on discharge instructions, follow up and referral plans. Demonstrated understanding of instructions, follow-up care. 03:20 Patient left the ED. lp1 Signatures: Dispatcher [employer] EDMS El Witt MD MD rn Pena, Laura, RN RN lp1 Baron Schmitt Amanda am2 Antunez, Elena, RN RN ea Yong, Chheannith cy Corrections: (The following items were deleted from the chart) 00:17 00:16 Reassessment: Dr. Witt at bedside to assist with peripheral IV access for CT lp1 study lp1 03:30 03:00 IV discontinued, No redness/swelling at site. Pressure dressing applied, lp1 lp1 03:39 03:39 Patient left the ED. lp1 lp1
[2018-07-10 03:43] VITALS: TEMP 98.1
[2018-07-10 03:47] VITALS: BP 101/62; O2SAT 96
--- NOTE | 2018-07-10 08:08 | RAD REPORT ---
EXAM DESCRIPTION: US - UPPER EXTREMITY VENOUS UNILATE - 07/09/2018 10:58 pm CLINICAL HISTORY: Pain;Swelling Arm pain and bruising COMPARISON: No comparisons FINDINGS: Right upper extremity venous system was interrogated with Doppler technique. The sonograph er was unable to locate the right axillary, brachial, cephalic or basilic veins. This significantly l imits quality of the study. Right internal jugular vein and subclavian vein appear without thrombus.A large complex collection is present in the axillary and brachial vein region which may represent a h ematoma.
--- NOTE | 2018-07-10 08:11 | RAD REPORT ---
EXAM DESCRIPTION: US - Upper Ext Artery Uni Mike - 07/09/2018 11:00 pm CLINICAL HISTORY: swelling, tingling COMPARISON: UPPER EXTREMITY VENOUS UNILATE dated 07/09/2018 FINDINGS: Grayscale, color, power and spectral Doppler of the right upper extremity arterial system was performed. No significant stenosis or occlusion seen of the right upper extremity arterial system. Heterogenous collection in the right upper arm is noted, poorly visualized but favored to represent a large hemato ma.
--- NOTE | 2018-07-10 13:15 | RAD REPORT ---
EXAM DESCRIPTION: CT examination of the right upper extremity without contrast: CLINICAL HISTORY: swelling and pain TECHNIQUE: CT examination of the right upper extremity is performed on multi- detector CT scanner without contrast. Sagittal and coronal reformations are obtained. The reported DLP in mGycm is 2253, Automatic exposure control (AEC) mA and/04 kV adjustment by patient size and/or interatrial reconstructive technique was use, per department dose optimization program, during the performance of the CT examination. COMPARISON: None. FINDINGS: Soft tissue swelling is noted in the region of the right arm. Enlargement and swelling in the region of the biceps muscle is noted. No evidence of bony abnormalities are noted. Joint spaces appear normal. Evidence of prior arthroplasty involving the metacarpophalangeal elbow joint of the index finger is noted. Shoulder and acromioclavicular joints appear unremarkable. Mild degenerative changes are seen in the elbow joint. Normal appearance of the forearm and wrist are noted. IMPRESSION: Soft tissue swelling and subcutaneous edema predominantly in the arm. Enlargement or swelling of the biceps muscle. Electronically signed by: Danae Adair MD 07/10/2018 2:40 AM CDT Workstation : [id number] Due to temporary technical issues with the PACS/Fluency reporting system, reports are being signed by the in house radiologist as a courtesy to ensure prompt reporting. The interpreting radiologist is fully responsible for the content of the report. NETTA
== END 2018-07-10 03:39 | disposition home or self-care (01) ==
LOC: ER 21:46
DX: S40.021A Contusion of right upper arm, initial encounter (principal); J44.9 Chronic obstructive pulmonary disease, unspecified; F32.9 Major depressive disorder, single episode, unspecified; I10 Essential (primary) hypertension; C61 Malignant neoplasm of prostate; I25.2 Old myocardial infarction; Z79.82 Long term (current) use of aspirin
CPT/HCPCS: 73200; 76377; 93931; 93971; 99284

== ENCOUNTER 2018-07-17 10:01 | Observation (INO) | payer OTHER, MEDICARE ==
--- OUTSIDE RECORDS SUMMARY | 2018-07-17 10:03 | XMS REPORT | Clinical Summary ---
:1935 Author Organization [facility] Address [address] [place] [address] Care Team Providers Name Role Phone Asked, [...] Not on file Implants Implanted Type Area Employment Representative Device Shelf Model / Identifier Expiration Serial / Date Lot Unify [employer] Next Generation Fagot Heater-D 40 - [id number] - [id number] CARDIAC N/A: N/A [facility] 07/15/2017 [id number] / Implanted: Qty: 1 on 11/05/2015 by Minor Fuentes MD DEFIB [id number] / [id number] Defibrillator, Pacemaker Results Not on fileafter 07/16/2017 Insurance Payer Benefit Plan / Group Subscriber ID Type Phone Address AARP AARP SUPPLEMENT xxxxxxxxxxx Commercial MEDICARE MEDICARE PART A AND B xxxxxxxxxx Medicare [place], [place] ([place]) [place] [address] Advance Directives Patient has advance care planning documents on file. For more information, please contact:[employer] [address] [place] [address]
--- OUTSIDE RECORDS SUMMARY | 2018-07-17 10:05 | XMS REPORT | CCD ---
:1935 Author Organization [facility] Outpatient Imaging - [facility] Team Providers Name Role Phone Rafael Reyes Consulting Provider Allergies, Adverse Reactions, Alerts Substance Reaction Status NKDA Active Problem List Condition Effective Dates Status Pain Active
--- OUTSIDE RECORDS SUMMARY | 2018-07-17 10:05 | XMS REPORT | CCD ---
:1935 Author Organization [facility] Outpatient Imaging - [facility] Team Providers Name Role Phone Rafael Reyes Consulting Provider Allergies, Adverse Reactions, Alerts Substance Reaction Status NKDA Active Problem List Condition Effective Dates Status Pain Active
--- OUTSIDE RECORDS SUMMARY | 2018-07-17 10:05 | XMS REPORT | Continuity of Care Document ---
:1935 Author Organization Interface Problems Problem Status Onset Classification Date Comments Source Date Reported R06.02 - Active 04/20/19 [facility] SHORTNESS OF 17 [facility] BREATH Depressive Active 09/03/19 Problem 08/11/2017 Data [facility] disorder<sup>9, 15 migrated [facility] 10</sup> from [facility] on 10/22/14. UNK Active 02/22/20 [address] [place] 724.02/724.4/72 Active 02/22/20 4.2 14 [place] SURGERY Active 02/22/20 14 [place] PAIN AROUND EYE Active 06/18/[address] Trochanteric Active 02/01/20 Problem 08/11/2017 Data [facility] bursitis<sup>16 13 migrated [facility] </sup> from [facility] on 09/13/14. Acute Resolved 12/27/19 Problem 08/11/2017 Data [facility] pharyngitis<sup 13 migrated Jesus >1, 2</sup> from [facility] on 10/31/14. Cellulitis and Resolved 09/18/19 Problem 08/11/2017 Data [facility] abscess of 13 migrated [facility] upper from [facility] arm<sup>4, [facility] 5</sup> on 10/31/14. 401.9 [...] Active Problem 08/11/2017 Data OPID obstructive migrated [facility] lung from [facility] disease<sup>6</ [facility] sup> on 09/13/14. 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 Coronary Active Problem 08/11/2017 Data [facility] atherosclerosis migrated [facility] <sup>8</sup> from [facility] on 09/13/14. Dyslipidemia<brandt Active Problem 08/11/2017 Data [facility] p>11</sup> [facility] on 09/13/14. GERD - Active Problem 08/11/2017 [facility] Gastro-esophage Jesus al reflux Medical disease Group HTN - Active Problem 08/11/2017 [facility] Hypertension [facility] Hypertensive Active Problem 08/11/2017 Data OPID disorder<sup>12 migrated [facility] </sup> from [facility] on 09/13/14. Malignant tumor Active Problem 08/11/2017 Data [facility] of [facility] prostate<sup>13 from Medical </sup> [facility] on 09/13/14. Obesity Active Problem 08/11/2017 [facility] Pain Active Problem 08/11/2017 OP[facility], [facility] Pinched Active Problem 08/11/2017 back OPID nerve<sup>14</s [facility] up> [facility] Group Pulmonary Active Problem 08/11/2017 Data [facility] emphysema<sup>1 migrated [facility] 5</sup> from [facility] on 09/13/14. Shortness of Resolved Problem 08/11/2017 OP[facility] breath on [facility] exertion Medical Group Pinched Active Problem 03/01/2014 1back nerve<sup>1</brandt [place] p> SPIN STEN,LUMBR Active WO LORETO [facility] LUMBOSACRAL Active NEURITIS NOS [facility] LUMBAGO Active [facility] Medications Medication Details Route Status Patient Ordering Order Source Instructions Provider Date tiotropium See Active Medical 0.018 MG/ACTUAT Instructions, # 2018 Group Inhalant Powder 30 unknown unit, [Spiriva] INHALE ONE CAPSULE BY MOUTH EVERY DAY, Pharmacy: [place] [id number] Atropine 0.5 mg, 5 mL, Inactive Route: IVP, Drug 2013 [facility] form: INJ, ONCE, Dosing Weight 100, kg, PRN Bradycardia, Start date: 02/25/14 21:56:00, for symptomatic bradycardia HR Nitroglycerin 0.4 mg, 1 tab, Inactive 0.4 MG Route: SL, Drug 2013 [facility] Sublingual form: TAB, Tablet Q5Min, Dosing Weight 100, kg, PRN Chest Pain, Start date: 02/25/14 21:55:00, Duration: 30 day, Stop date: 03/27/14 21:54:00Notes: (Same as:Nitroquick, Nitrostat) "Do Not Crush" Sublingual tablet Famotidine 20 20 mg, 1 tab, No Longer MG Oral Tablet Route: PO, Drug Active 2013 [facility] [Pepcid] form: TAB, Q12H, Dosing Weight 100, kg, Start date: 02/25/14 21:00:00, Duration: 30 day, Stop date: 03/27/14 9:00:00Notes: (Same as: Pepcid) Dexamethasone 4 mg, 1 mL, No Longer Route: IVP, Drug Active 2013 [facility] form: INJ, Q6H, Dosing Weight 100, kg, Start date: 02/25/14 18:00:00, Duration: 30 day, Stop date: 03/27/14 12:00:00Notes: Concentration: 4mg/ml Cefazolin 1 gm, 100 mL, No Longer Route: IVPB, Active 2013 [facility] Drug form: INJ, ABXQ8H, Dosing Weight 100, kg, Start date: 02/25/14 15:00:00, Duration: 30 day, Stop date: 03/27/14 7:00:00 Zofran 4 mg, 2 mL, No Longer Route: IV, Drug Active 2013 [facility] form: INJ, Q8H, Dosing Weight [...] 03/27/14 13:00:00 Omeprazole 0 Refill(s) Active 2013 [facility] Potassium 20 mEq, 1 tab, [...] 06/18/13 0:00:00 Ancef 2 gm, Route: Inactive [facility] IVPB, ONCE, 2013 Medical D[facility] 100, kg, Priority: Routine, Start date: 06/17/13 12:49:00, Duration: 1 doses or times, Stop date: 06/17/13 12:49:00 Prozac 0 Refill(s) Active [facility] 2013 [facility] Niacin 0 Refill(s) Active [facility] 2013 [facility] Isosorbide 0 Refill(s) Active [facility] Dinitrate 2013 [facility] Captopril 0 Refill(s) Active [facility] 2013 [facility] Lasix 0 Refill(s) Active [facility] 2013 [facility] Spiriva 0 Refill(s) Active [facility] 2013 [facility] Aspirin / 0 Refill(s) Active [facility] Calcium [address] [place] [address] Center Allergies, Adverse Reactions, Alerts Substance Category [...] from Group OBS ; Data migrated from [employer] on 05/19/2015. pneumococcal completed GE Result [facility] 23-valent 0 Comment: ALEX Lee vaccine<sup>4</s pneumovax. Medical up> Migrated from Group OBS ; Data migrated from [employer] on 05/19/2015. 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 ASSISTANT Read by: Timur Gray MD Dictated Date/time: [...] - Reyn[facility] CT DATE: 03/15/2016 12:29 PM SOCIAL SCIENCE RESEARCH ASSISTANT Read by: Jackie Choi MD Dictated Date/time: [...] BLOOD BANK Antibody Negative 02/25 RESULTS Scr [facility] (02/25/14 1:06 PM) BLOOD BANK ABO/Rh A POS 02/25 RESULTS /2013 [facility] HEMATOLOGY RBC 4.35 M/CMM 4.70 - 02/25 MH 6.10 [facility] HEMATOLOGY Hgb 13.0 g/dL 14.0 - 02/25 18.0 [facility] HEMATOLOGY WBC 9.8 K/CMM 3.7 - 10.4 02/25 [facility] HEMATOLOGY Hct 39.2 % 42.0 - 02/25 54.0 /2013 [facility] HEMATOLOGY MCV 90.1 fL 80.0 - 02/25 94.0 /2013 [facility] HEMATOLOGY MCH 29.8 pg 27.0 - 02/25 31.0 /2013 [facility] HEMATOLOGY MCHC 33.1 g/dL 32.0 - 02/25 36.0 /2013 [facility] HEMATOLOGY RDW 14.4 % 11.5 - 02/25 MH 14.5 [facility] HEMATOLOGY Platelet 187 K/CMM 133 - 450 02/25 [facility] HEMATOLOGY MPV 8.0 fL 7.4 - 10.4 02/25 /2013 [facility] HEMATOLOGY Basophils 0.8 % 0.0 - 1.0 02/25 /2013 [facility] HEMATOLOGY Eosinophils 10.6 % 0.0 - 4.0 02/25 [facility] HEMATOLOGY Eosinophils 1.0 K/CMM 0.0 - 0.5 02/25 MH # /2013 [facility] HEMATOLOGY Basophils # 0.1 K/CMM 0.0 - 0.2 02/25 [facility] HEMATOLOGY Monocytes # 1.1 K/CMM 0.0 - 0.8 02/25 [facility] HEMATOLOGY Segs-Bands # 6.1 K/CMM 1.5 - 8.1 02/25 [facility] HEMATOLOGY Lymphocytes 1.4 K/CMM 1.0 - 5.5 02/25 # /2013 [facility] HEMATOLOGY Segs 62.8 % 45.0 - 02/25 75.0 [facility] HEMATOLOGY Monocytes 11.0 % 2.0 - 12.0 02/25 [facility] HEMATOLOGY Lymphocytes 14.8 % 20.0 - 02/25 40.0 [facility] CHEM PANEL eGFR 87 06/17 2Result Comment: The eGFR is calculated using the CKD-EPI formula. In most young, healthy individuals the eGFR will be >90 mL/ min/1.73m2. The eGFR declines with age. An eGFR of 60-89 may be normal in [facility] mL/min/1.7 some populations, particularly the elderly, for whom the CKD-EPI formula has not been extensively validated. Use of the eGFR is not recommended in the following populations: [address] Individuals with unstable creatinine concentrations, including [...] Creatinine 0.8 mg/dL 0.5 - 1.4 06/17 [facility] CHEM PANEL Sodium Lvl 140 meq/L 135 - 145 06/17 [facility] CHEM PANEL Potassium 5.2 meq/L 3.5 - 5.1 06/17 1Result Comment: [facility] Moderately Hemolyzed. CHEM PANEL Calcium Lvl 8.4 mg/dL 8.5 - 10.5 06/17 [facility] CHEM PANEL Chloride Lvl 108 meq/L 95 - 109 06/17 [facility] CHEM PANEL CO2 27 meq/L 24 - 32 06/17 [facility] CHEM PANEL AGAP 10.2 meq/L 10.0 - 06/17 20. [facility] CHEM PANEL Glucose Lvl 87 mg/dL 70 - 99 06/17 3Interpretive Data: Adult reference range values reflect the clinical guidelines of the [place] [employer]. [facility] CHEM PANEL BUN 12 mg/dL 7 - 22 06/17 [facility] Hip min 2 Hip min 2 EXAM: Right hip series. 04/22 - OP[facility] views [facility] /2013 - [place] DATE: April 22, 2013. Read by: Jackie [...] Source Temperature Oral (F) 97.6 F 02/26/2014 [facility] Heart Rate 87 02/26/2014 [facility] Respitory Rate 19 02/26/2014 [facility] Systolic (mm Hg) 156 02/26/2014 [facility] Diastolic (mm Hg) 64 02/26/2014 [facility] Respitory Rate 19 02/26/2014 [facility] Systolic (mm Hg) 137 02/26/2014 [facility] Diastolic (mm Hg) 77 02/26/2014 [facility] Heart Rate 80 02/26/2014 [facility] Temperature Oral (F) 98.4 F 02/26/2014 [facility] Diastolic (mm Hg) 74 02/26/2014 [facility] Systolic (mm Hg) 136 02/26/2014 [facility] Heart Rate 85 02/26/2014 [facility] Respitory Rate 16 02/26/2014 [facility] Temperature Oral (F) 98.4 F 02/26/2014 [facility] BMI Calculated 29.09 02/26/2014 [facility] Height 185.42 cm 02/26/2014 [facility] Weight 100 02/26/2014 [facility] Height 185.42 cm 02/25/2014 [facility] Weight 100 02/25/2014 [facility] BMI Calculated 29.09 02/25/2014 [facility] Respitory Rate 18 06/17/2013 [facility] Systolic (mm Hg) 144 06/17/2013 [facility] Diastolic (mm Hg) 70 06/17/2013 [facility] Systolic (mm Hg) 119 06/17/2013 [facility] Respitory Rate 15 06/17/2013 [facility] Diastolic (mm Hg) 66 06/17/2013 [facility] Systolic (mm Hg) 117 06/17/2013 [facility] Respitory Rate 16 06/17/2013 [facility] Diastolic (mm Hg) 67 06/17/2013 [facility] Heart Rate 68 06/17/2013 [facility] Weight 100 06/17/2013 [facility] Height 185.42 cm 06/17/2013 [facility] BMI Calculated 29.09 06/17/2013 [facility] Encounters Location Location Encounter Encounter Reason Attending ADM DC Status Source Details Type Number For Provider Date Date Visit OD [id number] 401.9 - CARINE 08/17 Active [facility] 0 HYPERTEN [facility] OBS Day [id number] _MAPID:E Luis 06/17 06/18 [facility] [id number]2013 [facility] 1 [id number] [facility] OBS [id number] Wilber 02/26 02/26 [facility] Observation 2 [facility]patient [id number] CARINE 10/23 [facility] 1 [facility] Outpatient [id number] CARINE 01/15 [facility] 2 [facility] Outpatient [id number] CARINE07/28 [facility] 3 [facility] Outpatient [id number] CARINE 10/13 [facility] 4 [facility] Outpatient [id number] CARINE 10/19 [facility] [place] [facility] [id number] NURSE VISIT 12/21 [facility] [place] [facility] [id number] CARINE 01/13 [facility] Outpatient [id number] CARINE 03/14 [facility] 8 [place] [facility] Outpt Diag [id number] Carine 03/15 03/16 [facility] 2 [facility] Outpt Diag [id number] Farshad 04/20 04/21 [facility] 3 [facility] Phone [id number] 08/07 08/09 Primary Message [facility] Procedures Procedure Code Date Perfomer Comments Source ACD - Automatic [id number] 11/24/2009 [facility] cardiac [place] defibrillator procedure ACD - Automatic [id number] 11/24/2009 Medical cardiac Group defibrillator procedure ACD - Automatic [id number] 11/24/2009 [facility] cardiac [facility] defibrillator procedure Lobectomy of lung [id number] 04/17/2005 [facility] [place] Lobectomy of lung [id number] 04/17/2005 Medical Group Lobectomy of lung [id number] 04/17/2005 [facility] Lobectomy of lung [id number] 04/17/2005 [facility] Bronchoscopy [id number] 04/17/2003 [facility] [place] Bronchoscopy [id number] 04/17/2003 [facility] Bronchoscopy [id number] 04/17/2003 [facility] Bronchoscopy [id number] 04/17/2003 [facility] Prostatectomy [id number] 04/17/2000 [facility] Prostatectomy [id number] 04/17/2000 [facility] Prostatectomy [id number] 04/17/2000 [facility] Prostatectomy [id number] 04/17/2000 [facility] Stent placement [id number] OP[facility] Stent placement [id number] [facility] Stent placement [id number] OP[facility] ACD - Automatic [id number] [facility] defibrillator procedure Stent placement [id number] [facility]
--- NOTE | 2018-07-17 10:59 | RAD REPORT ---
EXAM DESCRIPTION: RAD - Chest Single View - 07/17/2018 10:52 am CLINICAL HISTORY: Chest pain;SOB Chest pain. COMPARISON: Chest Single View dated 07/07/2018; Chest Single View dated 07/04/2018; Chest Single View dated 07/03/2018; Chest Pa And Lat (2 Views) dated 07/03/2018 FINDINGS: Portable technique limits examination quality. The lungs are emphysematous but grossly clear. The heart is mildly enlarged in size with multi lead p acer device present. No displaced fractures. IMPRESSION: COPD.
[2018-07-17 11:05] LABS: Absolute Lymphocytes (CBC) 0.5 K/uL (0.7-4.9); Absolute Monocytes 0.7 K/uL (0.1-1.3); Absolute Neutrophil 6.1 K/uL (1.8-8.0); Basophils % 0.8 % (0-1.3); Eosinophils % 2.3 % (0-4.4); Hematocrit 32.7 % (39.6-49.0); Lymphocytes % 7.1 % (15.3-44.8); MPV 8.6 fL (7.6-11.3); Monocytes % 9.6 % (3.3-12.3); RBC Red Blood Cell Count 3.54 M/uL (4.33-5.43)
[2018-07-17 11:14] LABS: Protime INR 1.2
[2018-07-17 11:28] LABS: Albumin 3.3 g/dL (3.4-5.0); Bilirubin Direct 0.9 mg/dL (0-0.2); Bilirubin Total 2.2 mg/dL (0.2-1.0); Protein, Total 6.8 g/dL (6.4-8.2); Troponin (Emerg Dept Use Only) 0.1 ng/mL (0.0-0.045)
--- NOTE | 2018-07-17 12:05 | ER ---
Nurse's Notes [facility] Name: Jakob Romero Age: 83 yrs Sex: Male : 1935 Arrival Date: 07/17/2018 Time: 10:11 Bed 23 Private MD: Diagnosis: Chronic obstructive pulmonary disease with (acute) exacerbation;Systolic (congestive) heart failure Presentation: 07/17 10:12 Presenting complaint: Patient states: He was recently hospitalized on June 19 for aj1 pneumonia, on June 22, while he was in the hosptial he had a ME. He was discharged on July 09, reports that today he feels like he has phlegm stuck in his throat and he can't take a deep breath. Patient has purple bruising noted to the chest and purple bruising noted to entire right arm. Patient reports that he had a PICC line to that arm. Transition of care: patient was not received from another setting of care. Onset of symptoms was July 17, 2018. Risk Assessment: Do you want to hurt yourself or someone else? Patient reports no desire to harm self or others. Initial Sepsis Screen: Does the patient meet any 2 criteria? No. Patient's initial sepsis screen is negative. Does the patient have a suspected source of infection? Yes: Productive cough/pneumonia. Care prior to arrival: None. 10:12 Method Of Arrival: EMS: [facility] aj1 10:12 Acuity: NETTE 2 aj1 Triage Assessment: 10:26 General: Appears in no apparent distress. uncomfortable, ill, Behavior is calm, aj1 cooperative, appropriate for age. Pain: Denies pain. Respiratory: Reports shortness of breath cough that is productive, Onset: The symptoms/episode began/occurred today, the patient has mild shortness of breath. Historical: - Allergies: 10:26 No Known Allergies; aj1 - Home Meds: 10:26 aspirin 81 mg Oral chew 1 tab once daily [Active]; Entresto 97-103 mg oral tab 1 tab 2 aj1 times per day [Active]; amiodarone 200 mg Oral tab 1 tab once daily [Active]; Asmanex HFA 100 mcg/actuation inhalation HFAA 2 puffs 2 times per day [Active]; metoprolol succinate 25 mg Oral Tb24 1 tab once daily [Active]; fluoxetine 20 mg Oral cap 1 cap once daily [Active]; Sprivia 18 mcg daily [Active]; famotidine 20 mg Oral tab 1 tab once daily [Active]; furosemide 40 mg Oral tab 1 tab 2 times per day [Active]; - PMHx: 10:26 Angina; COPD; Depression; Hypertension; Myocardial infarction; Prostate Cancer; aj1 - Immunization history:: Flu vaccine is up to date. - Social history:: Smoking status: Patient/guardian denies using tobacco. - Ebola Screening: : Patient denies travel to an Ebola-affected area in the 21 days before illness onset. Screenin:29 Abuse screen: Denies threats or abuse. Denies injuries from another. Nutritional aj1 screening: No deficits noted. Tuberculosis screening: No symptoms or risk factors identified. 15:09 Fall Risk No fall in past 12 months (0 pts). Secondary diagnosis (15 points) impaired aj1 mobility, IV access (20 points). Ambulatory Aid- None/Bed Rest/Nurse Assist (0 pts). Gait- Weak (10 pts.). Mental Status- Overestimates/Forgets Limitations (15 pts.). Total Harden Fall Scale indicates High Risk Score (45 or more points). Fall prevention measures have been instituted. Assessment: 10:29 General: Appears in no apparent distress. uncomfortable, ill, Behavior is calm, aj1 cooperative, appropriate for age. Pain: Denies pain. Neuro: Level of Consciousness is awake, alert, obeys commands, Oriented to person, place, time, situation, Speech is normal, Facial symmetry appears normal. Cardiovascular: Reports shortness of breath, Heart tones S1 S2 present Patient's skin is warm and dry. purple bruising noted to chest. Rhythm is paced Chest pain is denied. Respiratory: Reports cough that is productive, Airway is patent Respiratory effort is even, unlabored, Respiratory pattern is regular, symmetrical, Breath sounds are diminished bilaterally. the patient has mild shortness of breath. GI: Abdomen is flat, non-distended, Abd is soft and non tender X 4 quads. : No signs and/or symptoms were reported regarding the genitourinary system. EENT: No signs and/or symptoms were reported regarding the EENT system. Derm: Skin is pale, Bruising that is dark purple, on chest and right arm. Musculoskeletal: No signs and/or symptoms reported regarding the musculoskeletal system. Circulation, motion, and sensation intact. 11:38 Reassessment: Patient appears in no apparent distress at this time. No changes from aj1 previously documented assessment. Patient and/or family updated on plan of care and expected duration. Pain level reassessed. Patient is alert, oriented x 3, equal unlabored respirations, skin warm/dry/pink. 12:22 Reassessment: Patient appears in no apparent distress at this time. No changes from aj1 previously documented assessment. Patient and/or family updated on plan of care and expected duration. Pain level reassessed. Patient is alert, oriented x 3, equal unlabored respirations, skin warm/dry/pink. 13:30 Reassessment: Patient and/or family updated on plan of care and expected duration. Pain aj1 level reassessed. General: Appears in no apparent distress. uncomfortable, ill, Behavior is calm, cooperative, appropriate for age. Pain: Denies pain. Neuro: Level of Consciousness is awake, alert, obeys commands, Oriented to person, place, time, situation, Speech is normal, Facial symmetry appears normal. Cardiovascular: Patient's skin is warm and dry. Rhythm is ventricular pacer Chest pain is denied. Respiratory: Airway is patent Respiratory effort is even, unlabored, Respiratory pattern is regular, symmetrical, Denies shortness of breath at this time. GI: Abdomen is flat, non-distended. Derm: Skin is pale. Musculoskeletal: Circulation, motion, and sensation intact. 14:30 Reassessment: Patient appears in no apparent distress at this time. No changes from aj1 previously documented assessment. Patient and/or family updated on plan of care and expected duration. Pain level reassessed. Patient is alert, oriented x 3, equal unlabored respirations, skin warm/dry/pink. 15:08 Reassessment: Patient appears in no apparent distress at this time. No changes from aj1 previously documented assessment. Patient and/or family updated on plan of care and expected duration. Pain level reassessed. Patient is alert, oriented x 3, equal unlabored respirations, skin warm/dry/pink. Vital Signs: 10:26 BP 98 / 63; Pulse 76; Resp 22; Temp 98.7(O); Pulse Ox 96% on 2 lpm NC; Weight 89.36 kg aj1 (R); Height 6 ft. 1 in. (185.42 cm) (R); Pain 0/10; 11:38 BP 97 / 56; Pulse 71; Resp 20; Pulse Ox 100% on 2 lpm NC; aj1 12:22 BP 101 / 68; Pulse 75; Resp 20; Pulse Ox 96% on 2 lpm NC; aj1 13:30 BP 96 / 62; Pulse 74; Resp 20; Pulse Ox 94% on 2 lpm NC; aj1 14:56 BP 91 / 52; Pulse 73; Resp 18; Pulse Ox 94% on 2 lpm NC; aj1 10:26 Body Mass Index 25.99 (89.36 kg, 185.42 cm) aj1 ED Course: 10:11 Patient arrived in ED. aj1 10:15 James Peter MD is Attending Physician. gs 10:23 Triage completed. aj1 10:26 Arm band placed on. aj1 10:29 Mahnaz Renteria, RN is Primary Nurse. aj1 10:29 Patient has correct armband on for positive identification. Bed in low position. Call aj1 light in reach. Side rails up X 1. continuous crusher operator on. Pulse ox on. NIBP on. 10:29 No provider procedures requiring assistance completed. aj1 10:38 EKG done, by wildlife biology technician. reviewed by James Peter MD. sm3 10:46 X-ray completed. Portable x-ray completed in exam room. jr1 10:48 XRAY Chest (1 view) In Process Unspecified. EDMS 12:04 Ruiz Cueto MD is Hospitalizing Provider. gs 12:52 Ultrasound completed. Patient tolerated well. aa4 12:53 UPPER EXTREMITY VENOUS UNILATE In Process Unspecified. EDMS 15:09 Report given to NIYA Mccauley on 4th floor. aj1 15:10 Patient admitted, IV remains in place. aj1 Administered Medications: 12:11 Drug: Potassium Effervescent Tablet 50 mEq Route: PO; aj1 15:11 Follow up: Response: No adverse reaction aj1 Outcome: 12:05 Decision to Hospitalize by Provider. gs 15:10 Admitted to Tele accompanied by tech, via wheelchair, with oxygen. aj1 15:10 Condition: stable 15:10 Discharge instructions given to patient, family, Instructed on the need for admit, Demonstrated understanding of instructions. 15:32 Patient left the ED. rv Signatures: Dispatcher [employer] EDMahnaz Connelly, RN RN aj1 Estela Mendez jr1 Cathie Campbell aa4 James Peter MD MD Mirlande Ramires 3 Larry Dunn, NIYA RN rv
--- NOTE | 2018-07-17 12:05 | EDPHYS ---
Physician Documentation [facility] Name: Jakob Romero Age: 83 yrs Sex: Male : 1935 Arrival Date: 07/17/2018 Time: 10:11 Bed 23 Private MD: ED Physician James Peter HPI: 07/17 11:50 This 83 yrs old Male presents to ER via EMS with complaints of Shortness Of gs Breath. 11:50 The patient has shortness of breath at rest. Onset: The symptoms/episode began/occurred gs acutely, suddenly. Duration: The symptoms are continuous, resolved. The patient's shortness of breath is aggravated by exertion. Associated signs and symptoms: Pertinent negatives: chest pain, fever. Severity of symptoms: At their worst the symptoms were severe in the emergency department the symptoms have resolved. The patient has experienced similar episodes in the past, a few times. The patient has been recently been admitted at [facility], was discharged a couple of weeks ago. Historical: - Allergies: 10:26 No Known Allergies; aj1 - Home Meds: 10:26 aspirin 81 mg Oral chew 1 tab once daily [Active]; Entresto 97-103 mg oral tab 1 tab 2 aj1 times per day [Active]; amiodarone 200 mg Oral tab 1 tab once daily [Active]; Asmanex HFA 100 mcg/actuation inhalation HFAA 2 puffs 2 times per day [Active]; metoprolol succinate 25 mg Oral Tb24 1 tab once daily [Active]; fluoxetine 20 mg Oral cap 1 cap once daily [Active]; Sprivia 18 mcg daily [Active]; famotidine 20 mg Oral tab 1 tab once daily [Active]; furosemide 40 mg Oral tab 1 tab 2 times per day [Active]; - PMHx: 10:26 Angina; COPD; Depression; Hypertension; Myocardial infarction; Prostate Cancer; aj1 - Immunization history:: Flu vaccine is up to date. - Social history:: Smoking status: Patient/guardian denies using tobacco. - Ebola Screening: : Patient denies travel to an Ebola-affected area in the 21 days before illness onset. ROS: 11:50 Constitutional: Negative for fever. gs 11:50 All other systems are negative. Exam: 11:50 Head/Face: Normocephalic, atraumatic. Eyes: Pupils equal round and reactive to light, gs extra-ocular motions intact. Lids and lashes normal. Conjunctiva and sclera are non-icteric and not injected. Cornea within normal limits. Periorbital areas with no swelling, redness, or edema. ENT: Nares patent. No nasal discharge, no septal abnormalities noted. Tympanic membranes are normal and external auditory canals are clear. Oropharynx with no redness, swelling, or masses, exudates, or evidence of obstruction, uvula midline. Mucous membranes moist. Neck: Trachea midline, no thyromegaly or masses palpated, and no cervical lymphadenopathy. Supple, full range of motion without nuchal rigidity, or vertebral point tenderness. No Meningismus. Chest/axilla: Normal chest wall appearance and motion. Nontender with no deformity. No lesions are appreciated. 11:50 Cardiovascular: Regular rate and rhythm with a normal S1 and S2. No gallops, murmurs, or rubs. Normal PMI, no JVD. No pulse deficits. Respiratory: Lungs have equal breath sounds bilaterally, clear to auscultation and percussion. No rales, rhonchi or wheezes noted. No increased work of breathing, no retractions or nasal flaring. 11:50 Back: No spinal tenderness. No costovertebral tenderness. Full range of motion. MS/ Extremity: Pulses equal, no cyanosis. Neurovascular intact. Full, normal range of motion. Neuro: Awake and alert, GCS 15, oriented to person, place, time, and situation. Cranial nerves II-XII grossly intact. Motor strength 5/5 in all extremities. Sensory grossly intact. Cerebellar exam normal. Normal gait. 11:50 Constitutional: The patient appears alert, awake. 11:50 Chest/axilla: Inspection: ecchymosis, that is mild, of the anterior aspect of right upper chest and anterior aspect of left upper chest 11:50 ECG was reviewed by the Attending Physician. 11:50 Skin: Appearance: ecchymosis, noted on the, right bicep and dorsal aspect of right forearm, that are moderate. Vital Signs: 10:26 BP 98 / 63; Pulse 76; Resp 22; Temp 98.7(O); Pulse Ox 96% on 2 lpm NC; Weight 89.36 kg aj1 (R); Height 6 ft. 1 in. (185.42 cm) (R); Pain 0/10; 11:38 BP 97 / 56; Pulse 71; Resp 20; Pulse Ox 100% on 2 lpm NC; aj1 12:22 BP 101 / 68; Pulse 75; Resp 20; Pulse Ox 96% on 2 lpm NC; aj1 13:30 BP 96 / 62; Pulse 74; Resp 20; Pulse Ox 94% on 2 lpm NC; aj1 14:56 BP 91 / 52; Pulse 73; Resp 18; Pulse Ox 94% on 2 lpm NC; aj1 10:26 Body Mass Index 25.99 (89.36 kg, 185.42 cm) aj1 MDM: 10:24 Patient medically screened. 12:04 Differential diagnosis: CHF exacerbation, Chronic Obstructive Pulmonary Disease gs Myocardial Infarction pneumonia. Data reviewed: vital signs, nurses notes, old medical records, lab test result(s), EKG, radiologic studies. Counseling: I had a detailed discussion with the patient and/or guardian regarding: the historical points, exam findings, and any diagnostic results supporting the discharge/admit diagnosis, the need for further work-up and treatment in the hospital. 07/17 10:25 Order name: Basic Metabolic Panel; Complete Time: 11:39 07/17 10:25 Order name: CBC with Diff; Complete Time: 11:12 07/17 10:25 Order name: LFT's; Complete Time: 11:39 07/17 10:25 Order name: Magnesium; Complete Time: 11:39 07/17 10:25 Order name: NT PRO-BNP; Complete Time: 11:39 07/17 10:25 Order name: PT-INR; Complete Time: 11:39 07/17 10:25 Order name: Troponin (emerg Dept Use Only); Complete Time: 11:39 07/17 13:17 Order name: Basic Metabolic Panel EDMS 07/17 13:17 Order name: Basic Metabolic Panel EDMS 07/17 13:17 Order name: CBC with Automated Diff EDMS 07/17 13:17 Order name: CBC with Automated Diff EDMS 07/17 13:17 Order name: NT PRO-BNP EDMS 07/17 13:17 Order name: NT PRO-BNP EDMS 07/17 13:17 Order name: Troponin I EDMS 07/17 10:25 Order name: XRAY Chest (1 view); Complete Time: 11:12 07/17 10:25 Order name: EKG; Complete Time: 10:25 07/17 10:25 Order name: Cardiac monitoring; Complete Time: 10:28 07/17 10:25 Order name: EKG - Nurse/Tech; Complete Time: 10:47 07/17 10:25 Order name: IV Saline Lock; Complete Time: 10:54 07/17 10:25 Order name: Labs collected and sent; Complete Time: 10:54 07/17 10:25 Order name: O2 Per Protocol; Complete Time: 10:28 07/17 10:25 Order name: O2 Sat Monitoring; Complete Time: 10:28 07/17 12:04 Order name: UPPER EXTREMITY VENOUS UNILATE; Complete Time: 13:27 EDAK 07/17 13:17 Order name: Consistent Carb (ADA) 2000 Eduardo EDMS 07/17 13:17 Order name: Troponin I EDAK 07/17 13:17 Order name: Troponin I EDAK EC:50 Rate is 76 beats/min. Rhythm is regular. QRS interval is prolonged. QT interval is gs prolonged. T waves are Flattened. Clinical impression: Abnormal EKG without significant change. Administered Medications: 12:11 Drug: Potassium Effervescent Tablet 50 mEq Route: PO; aj1 15:11 Follow up: Response: No adverse reaction aj1 Disposition: 12:04 Critical Care:. gs Disposition: 07/17/18 12:05 Hospitalization ordered by Ruiz Cueto for Observation. Preliminary diagnosis are Chronic obstructive pulmonary disease with (acute) exacerbation, Systolic (congestive) heart failure. - Bed requested for Telemetry/MedSurg (observation). - Status is Observation. rv - Condition is Stable. - Problem is an acute exacerbation. - Symptoms have improved. UTI on Admission? No Critical care time excluding procedures: 12:04 Critical care time: Bedside Care: 10 minutes, Consultation: 10 minutes, Family gs Intervention: 10 minutes. Total time: 30 minutes Signatures: Dispatcher [employer] EDMahnaz Connelly RN RN aj1 Karlee Viera RN RN dw Starr, Gregory, MD MD gs Vicente, Ronaldo, RN RN rv Corrections: (The following items were deleted from the chart) 12:04 12:02 Extremity Venous Uni Ltd+[email or web address].RAD.BRZ ordered. EDMS EDAK 13:54 12:05 Hospitalization Ordered by A Rom JARQUIN for Observation. Preliminary diagnosis is dw Chronic obstructive pulmonary disease with (acute) exacerbation; Systolic (congestive) heart failure. Bed requested for Telemetry/MedSurg (observation). Status is Observation. Condition is Stable. Problem is an acute exacerbation. Symptoms have improved. UTI on Admission? No. gs 15:32 13:54 07/17/2018 12:05 Hospitalization Ordered by A Rom JARQUIN for Observation. rv Preliminary diagnosis is Chronic obstructive pulmonary disease with (acute) exacerbation; Systolic (congestive) heart failure. Bed requested for Telemetry/MedSurg (observation). Status is Observation. Condition is Stable. Problem is an acute exacerbation. Symptoms have improved. UTI on Admission? No. dw
[2018-07-17] MEDS ORDERED: POTASSIUM 25 MEQ EFFERV TAB ONE (12:06)
[2018-07-17] MEDS ORDERED: IPRATROPIUM BROM 0.5MG/2.5ML NEB PRN (13:13)
[2018-07-17] MEDS ORDERED: ACETAMINOPHEN 500 MG TAB PO PRN (13:13)
[2018-07-17] MEDS ORDERED: ONDANSETRON 4 MG/2 ML VIAL IV PRN (13:13)
[2018-07-17] MEDS ORDERED: ALBUTEROL 2.5 MG/3 ML NEB SOL NEB PRN (13:13)
--- NOTE | 2018-07-17 13:22 | RAD REPORT ---
EXAM DESCRIPTION: US - UPPER EXTREMITY VENOUS UNILATE - 07/17/2018 1:08 pm CLINICAL HISTORY: Right arm swelling COMPARISON: July 09, 2018 FINDINGS: 10 centimeter hematoma is again demonstrated within the anterior aspect of right upper arm . Echogenic material consistent with thrombus is present within the distal right basilic and mid brachi al veins. No additional thrombus is seen within veins of the right upper extremity. IMPRESSION: Small amount of acute thrombus within the distal right basilic and right brachial veins 10 centimeter hematoma
[2018-07-17 16:28] VITALS: BMI 23.4
[2018-07-17] MEDS ORDERED: FUROSEMIDE 20 MG/ 2ML VIAL IV SCH (17:00)
[2018-07-17] MEDS: FUROSEMIDE 40 MG/4 ML VIAL IV SCH (18:46)
[2018-07-17] MEDS ORDERED: SACUBITRIL PO SCH (21:00)
[2018-07-17] MEDS ORDERED: VALSARTAN PO SCH (21:00)
[2018-07-17] MEDS ORDERED: MOMETASONE FUROATE IH SCH (21:00)
[2018-07-17] MEDS ORDERED: FAMOTIDINE 20 MG PO SCH (21:00)
--- NOTE | 2018-07-18 04:10 | HP ---
Date of Admission: 07/17/2018 Chief Complaint: Chest pain and shortness of breath. History Of Present Illness: This is an 83-year-old male patient with COPD and congestive heart failu re with low ejection fraction, who was doing fine in his normal usual state of health until this morn ing all of a sudden, the patient started to complain of not feeling good and helped him to get h im back in the bed and as he sat down in the bed, he fell backwards, did not lose consciousness, and started complaining of chest pain, throat pain, and he was gasping for air as describes. Ancelmo eliassteve was called and he was brought into emergency room. After he was evaluated, he was admitted to [facility]. His condition has improved since his arrival to the emergency room and admission. I saw him this evening. He was in his room. There was no family member at bedside, but he appeared to be back to his normal usual self again. He denied any complaints when I saw him. All this information about him was obtained from him as well as talking to his on the phone who was contacted this e vening. Allergies: NO KNOWN ALLERGIES. Medications: List reviewed. Review of Systems: Cardiovascular: As mentioned above. Respiratory: As mentioned above. All other systems reviewed and negative. Past Surgical History: Significant for AICD placement; right lower lung lobectomy, not cancer relate d and surgery for prostate cancer. Past Medical History: Significant for gastroesophageal reflux disease, COPD, depression, chronic sys tolic congestive heart failure, prostate cancer, hypertension, anemia. For prostate cancer, he had p rostatectomy in the past and in 2018, he had radiation therapy for that. Family History: Not contributory. Social History: Prior history of smoking, not at present time. Use of alcohol negative. Physical Examination: Vital Signs: Temperature 96.9, pulse 68, respiratory rate 20, blood pressure 114/60, oxygen saturati on 94%, height 6 feet and 1 inch, weight 177 pounds. General: Awake, alert, oriented, not in distress. HEENT: Head atraumatic, normocephalic. Conjunctivae nonerythematous. Sclerae white. Mouth, no thr ush or edema noted. Ears/Nose, no mass, lesion, discharge noted. Neck: Supple. No JVD, lymph nodes, bruit, thyromegaly noted. Lungs: Bilateral good equal air entry. Clear to auscultation. No rhonchi. No rales. Heart: Normal heart sounds, no murmur or gallop. Abdomen: Soft, bowel sounds normal. No guarding, rigidity, tenderness, mass, hepatosplenomegaly, di stention, or bruit noted. Extremities: There is no leg edema. Right upper extremity has extensive bruising all the way from s [place] to his wrist and this is the result of removal of PICC line that he had prior [facility]. His bruising and swelling from right upper extremity are significantly better compared to last week. Skin: No rash, ulcer, cellulitis. Lymphatics: No lymph node enlargement in neck, supraclavicular, infraclavicular region. Neuro: No focal neurological deficit. Chest: Unremarkable. External Genitalia: Deferred. Rectal: Deferred. Laboratory Data: White count 7.7, hemoglobin 11.1, platelets 230. Sodium 143, potassium 3, chloride 105, bicarb 33, BUN 19, creatinine 1.15, glucose 108. total bilirubin 2.2, SGOT 27, SGPT 143. Dang line phosphatase 74. Troponin first set 0.10, second set 0.10. ProBNP 8,592. Chest x-rays, changes of COPD. Venous Doppler of right upper extremity shows small amount of acute thrombus within the di stal right basilic and right brachial veins, 10-cm hematoma present. Impression: 1.Chest pain. 2.COPD. 3.Chronic systolic congestive heart failure. 4.Hypokalemia. 5.Anemia. 6.Gastroesophageal reflux disease. 7.Prostate cancer. 8.Hypertension. Plan: Admit the patient to hospital for further evaluation and management of this problem. The [place] ent is appropriate for observation. Home medications will be continued per order. We will repeat bl ood work tomorrow morning, consult Cardiology, and we will repeat cardiac enzymes in the morning. De tails and plan of treatment discussed with the patient's and the patient. The patient's CHF and COPD problems are stable at this point. ANA/MODL Voice ID: [id number]
[2018-07-18 04:12] LABS: Absolute Lymphocytes (CBC) 1.2 K/uL (0.7-4.9); Absolute Monocytes 0.8 K/uL (0.1-1.3); Absolute Neutrophil 5.8 K/uL (1.8-8.0); Basophils % 0.6 % (0-1.3); Eosinophils % 2.8 % (0-4.4); Hematocrit 31.3 % (39.6-49.0); Lymphocytes % 14.9 % (15.3-44.8); MPV 8.5 fL (7.6-11.3); Monocytes % 9.8 % (3.3-12.3); RBC Red Blood Cell Count 3.38 M/uL (4.33-5.43)
[2018-07-18 04:37] LABS: Albumin 3.2 g/dL (3.4-5.0); Bilirubin Total 2.2 mg/dL (0.2-1.0); Potassium 3.4 mmol/L (3.5-5.1); Protein, Total 6.3 g/dL (6.4-8.2)
[2018-07-18] MEDS ORDERED: POTASSIUM CL SA 10 MEQ TAB PO ONE (07:57)
[2018-07-18] MEDS: FUROSEMIDE 40 MG/4 ML VIAL IV SCH (08:45)
[2018-07-18 08:46] VITALS: BP 126/60
[2018-07-18] MEDS ORDERED: HOME MED 1 EA UNK (Tiotropium Bromide [Spiriva] 1 SPRAY) IH SCH (09:00)
[2018-07-18] MEDS ORDERED: ASPIRIN 81 MG PO SCH (09:00)
[2018-07-18] MEDS ORDERED: HOME MED 1 EA UNK (Fluoxetine Hcl [Fluoxetine Hcl] 20 MG) PO SCH (09:00)
[2018-07-18] MEDS ORDERED: AMIODARONE HCL 200 MG PO SCH (09:00)
[2018-07-18] MEDS ORDERED: METOPROLOL SUCCINATE 12.5 MG PO SCH (09:00)
[2018-07-18 11:16] VITALS: O2SAT 95
[2018-07-18 12:30] VITALS: TEMP 97.1
--- NOTE | 2018-07-18 12:58 | CON ---
Chief Complaint: Dyspnea. History Of Present Illness: Mr. Romero is a gentleman, who has end-stage heart disease. He has a d efibrillator. He has had numerous revascularization procedures. His last echocardiogram was just qu ite recently. The EF is in the 20% range. He had some defibrillator episodes of pace termination of VT. No shocks. 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 He has gone home. He has not had chest pain, and to be fa ir he does not remember very much of anything. He has severe dementia and in the past has been DNR. Presently, he has not been a DNR patient. When he first came to the hospital, his B-natriuretic pep tide was 8592. This morning, it is 5602. His chest x-ray showed COPD, but did not show evidence of pulmonary edema. He did have an enlarged heart. Impression: Mr. Romero probably has a fairly stable heart condition. His ALT has gone up slightly, so it is something to keep our eye on with us starting an amiodarone on him recently we need to be w tracy of possible liver toxicity. Otherwise, his medical therapy seems to be adequate as an outpatient . It is possible that his shortness of breath was all due to COPD rather than heart failure. PAULO/RADHA Voice ID: [id number] Report ID: [id number]
--- NOTE | 2018-07-19 20:05 | DS ---
Date of Discharge: 07/18/2018 Disposition: Discharged to go home. Physical Examination: HEENT: Unremarkable. Lungs: Clear to auscultation. Heart: Sounds normal. Abdomen: Soft bowel sounds normal. No guarding, rigidity, tenderness, or distention. Extremities: No leg edema. Discharge Medications And Instructions: 1. Continue all prior home medications. 2. Follow up at my office and with specialty sales consultant as per his scheduled appointment. Laboratory Data: White count today 8, hemoglobin 10.4, platelets 231. Chemistry from today is sodium 144, potassium 3.4, chloride 106, bicarb 32, BUN 23, creatinine 1.17, glucose 95. His SGOT 21, SGPT 117, alkaline phosphatase 67. Hospital Course: An 83-year-old patient admitted to the hospital with chest pain and shortness of breath. Please see dictated H and P for more information. After he was evaluated in the emergency room, he was admitted to the hospital and he had his cardiac enzymes. Troponin was minimally elevated. Cardiology consultation was obtained. We do not believe that the patient had any acute coronary event and his home medications were continued. His condition remained stable overnight. This morning no shortness of breath. No chest pain and specialty sales consultant has released him to go home. Medically, he is stable for discharge. The patient's was present today at bedside and she reported that lately the patient has been having lot of confusion and I did inform her that I would like to see how his confusion is as he has been in the hospital [id number] 2 different times recently and while in the hospital obviously, confusion will tend to get worse, but I expect his confusion problem to improve and get back to the baseline and we will see what that baseline looks like and then consider outpatient neurological referral when I see him at the office, depending on his condition. Final Diagnoses: 1. Chest pain. 2. Dyspnea. 3. Chronic systolic congestive heart failure. 4. Chronic obstructive pulmonary disease. 5. Chronic kidney disease, stage 3. 6. Anemia. ANA/MODL Voice ID: [id number] Report ID: [id number] NETTA
--- NOTE | 2018-07-24 11:09 | EKG ---
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
== END 2018-07-18 09:54 | disposition home or self-care (01) ==
LOC: ER 10:01 → ERHOLD 13:08 → 4TH 15:07
PROVIDERS: ADMIT Internal Medicine; ATTEND Internal Medicine
DX: R07.9 Chest pain, unspecified (principal); I13.0 Hypertensive heart and chronic kidney disease with heart failure and stage 1 through stage 4 chronic kidney disease, or unspecified chronic kidney disease; J44.9 Chronic obstructive pulmonary disease, unspecified; R06.00 Dyspnea, unspecified; D64.9 Anemia, unspecified; E87.6 Hypokalemia; K21.9 Gastro-esophageal reflux disease without esophagitis; C61 Malignant neoplasm of prostate; Z95.810 Presence of automatic (implantable) cardiac defibrillator; Z87.891 Personal history of nicotine dependence
CPT/HCPCS: 36415; 71045; 80048; 80053; 80076; 83735; 83880; 84484; 85025; 85610; 93005; 93971; 99285; G0378; J1940

== ENCOUNTER 2018-11-20 20:11 | Observation (INO) | payer OTHER, MEDICARE ==
--- OUTSIDE RECORDS SUMMARY | 2018-11-20 20:14 | XMS REPORT | Clinical Summary ---
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 07/15/2017 [id number] / Implanted: Qty: 1 on 11/05/2015 by Minor Fuentes MD DEFIB [id number] / [id number] Defibrillator, Pacemaker Results Not on fileafter 11/19/2017 Insurance Payer Benefit Plan / Subscriber ID Effective Dates Phone Address Type Group AARP AARP SUPPLEMENT xxxxxxxxxxx 2015-Present Commercial MEDICARE MEDICARE PART A xxxxxxxxxx 2015-[employer] [place], [place] Medicare [place] B [place] ([place]) [place] [address] Advance Directives Patient has advance care planning documents on file. For more information, please contact:Benitez Darnell[address] [place] [address]
--- OUTSIDE RECORDS SUMMARY | 2018-11-20 20:15 | XMS REPORT | Continuity of Care Document ---
:1935 Author Organization [employer] Care Team Providers Name Role Phone [employer] Unavailable Unavailable Problems Problem Status Onset Classification Date Comments Source Date Reported R06.02 - Active 04/20/19 OP[facility] SHORTNESS OF 17 Jesus BREATH Depressive Active 09/03/19 Problem 08/11/2017 Data migrated from [employer] on 10/22/14. Medical disorder9, 10 15 Data migrated from [employer] on 10/22/14. Group, REBECA Lee, OPID Axel UNK Active 02/22/20 14 [place] 724.02/724.4/72 Active 02/22/20 4.2 14 [place] SURGERY Active 02/22/20 14 [facility] PAIN AROUND EYE Active 06/18/[address] Trochanteric Active 02/01/20 Problem 08/11/2017 Data Medical [id number] 13 migrated Group, from GE OPID Centricity ALEX Lee on 09/13/14. OPID Reyna Acute Resolved 12/27/19 Problem 08/11/2017 Data migrated from [employer] on 11/01/14. Medical pharyngitis1, 2 13 Data migrated from [employer] on 10/31/14. Group, REBECA Lee, OPID Axel Cellulitis and Resolved 09/18/19 Problem 08/11/2017 Data migrated from [employer] on 11/01/14. Medical abscess of 13 Data migrated from [employer] on 10/31/14. 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 OPID Reyna Chronic Active Problem 08/11/2017 Data Medical obstructive migrated Group, lung disease6 from GE OPID Centricity Jesus, on 09/13/14. OPID Reyna COPD - Chronic Active Problem 08/11/2017 Medical obstructive Group, pulmonary [facility], REBECA Lee, [place],M H OPID Reyna Coronary Active Problem 08/11/2017 Data Medical arteriosclerosi migrated Group, s7 from GE OPID Centricity Jesus, on 09/13/14. OPID Reyna Coronary Active Problem 08/11/2017 Data Medical atherosclerosis migrated Group, 8 from GE OPID Centricity Jesus, on 09/13/14. OPID Reyna [id number] Active Problem 08/11/2017 Data Medical migrated Group, from GE OPID Centricity Jesus, on 09/13/14. OPID Reyna GERD - Active Problem 08/11/2017 Medical Gastro-esophage Group, al reflux [facility], REBECA Lee, [place],M H OPID Reyna HTN - Active Problem 08/11/2017 Medical Hypertension Group,[facility], REBECA Lee, [place],M H OPID Reyna Hypertensive Active Problem 08/11/2017 Data Medical migrated Group, from GE OPID Centricity Jesus, on 09/13/14. OPID Reyna Malignant tumor Active Problem 08/11/2017 Data Medical of [id number] migrated Group, from GE OPID Centricity Jesus, on 09/13/14. OPID Reyna Obesity Active Problem 08/11/2017 Medical Group, REBECA Lee, REBECA Reyna Pain Active Problem 08/11/2017 Medical Group,[facility], REBECA Lee, [place],M H REBECA Reyna Pinched nerve14 Active Problem 08/11/2017 back Medical Group, REBECA Lee, BISHOPParis Reyna Pulmonary Active Problem 08/11/2017 Data Medical [id number] migrated Group, from REBECA Centricity Jesus, on 09/13/14. REBECA Reyna Shortness of Resolved Problem 08/11/2017 Medical breath on Group, exertion REBECA Lee, [place],M H REBECA Reyna Pinched nerve1 Active Problem 03/01/2014 1back [facility] SPIN STEN,LUMBR Active WO LORETO [facility] LUMBOSACRAL Active NEURITIS NOS [facility] LUMBAGO Active [facility] Medications Medication Details Route Status Patient Ordering Order Source Instructions Provider Date tiotropium See Active Medical 0.018 MG/ACTUAT Instructions, # 2018 Group Inhalant Powder 30 unknown unit, [Spiriva] INHALE ONE CAPSULE BY MOUTH EVERY DAY, Pharmacy: [place] [id number] Atropine 0.5 mg, 5 mL, Inactive Route: IVP, Drug 2013 form: INJ, ONCE, Dosing Weight 100, kg, PRN Bradycardia, Start date: 02/25/14 21:56:00, for symptomatic bradycardia HR Nitroglycerin 0.4 mg, 1 tab, Inactive 0.4 MG Route: SL, Drug 2013 Sublingual form: TAB, Tablet Q5Min, Dosing Weight 100, kg, PRN Chest Pain, Start date: 02/25/14 21:55:00, Duration: 30 day, Stop date: 03/27/14 21:54:00Notes: (Same as:Nitroquick, Nitrostat) "Do Not Crush" Sublingual tablet Famotidine 20 20 mg, 1 tab, No Longer MG Oral Tablet Route: PO, Drug Active 2013 [Pepcid] form: TAB, Q12H, Dosing Weight 100, kg, Start date: 02/25/14 21:00:00, Duration: 30 day, Stop date: 03/27/14 9:00:00Notes: (Same as: Pepcid) Dexamethasone 4 mg, 1 mL, No Longer Route: IVP, Drug Active 2013 [facility] form: INJ, Q6H, Dosing Weight 100, kg, Start date: 02/25/14 18:00:00, Duration: 30 day, Stop date: 03/27/14 12:00:00Notes: Concentration: 4mg/ml Cefazolin 1 gm, 100 mL, No Longer Route: IVPB, Active 2013 [facility] Drug form: INJ, ABXQ8H, Dosing Weight 100, kg, Start date: 02/25/14 15:00:00, Duration: 30 day, Stop date: 03/27/14 7:00:00 Zofran 4 mg, 2 mL, No Longer Route: IV, Drug Active 2013 [facility] form: INJ, Q8H, Dosing Weight 100, kg, PRN Nausea, Start date: 02/25/14 14:14:00, Duration: 30 day, Stop date: 03/27/14 14:13:00Notes: (Same as: Zofran) tramadol 100 mg, 2 tab, No Longer hydrochloride Route: PO, Drug Active 2013 [facility] 50 MG Oral form: TAB, Q4H, Tablet [...] 03/27/14 13:00:00 Omeprazole 0 Refill(s) Active 2013 [facility] Potassium 20 mEq, 1 tab, Inactive [place] Chloride 20 MEQ Route: PO, Drug 2013 Medical Extended form: ERTAB, Center Release Tablet Daily, Dosing Weight 100, kg, Start date: 06/18/13 9:00:00, Duration: 30 day, Stop date: 07/17/13 9:00:00 Potassium 20 mEq, Route: Inactive Phani Chloride IVPB, ONCE, 2013 Medical Dosing Weight [...] Hydromorphone 0.5 mg, 0.25 mL, No Longer [facility] Route: IVP, Drug Active 2013 Medical form: INJ, Center Q5Min, Dosing Weight 100, kg, PRN Pain Score 7-10, Start date: 06/17/13 15:04:00, Duration: 4 doses or times, Stop date: 06/18/13 0:00:00Same as: Dilaudid Labetalol 10 mg, 2 mL, No Longer [facility] Route: IVP, Drug Active 2013 Medical form: INJ, Center Q5Min, Dosing Weight 100, kg, PRN Elevated BP, Start date: 06/17/13 15:04:00, Duration: 5 doses or times, Stop date: 06/18/13 0:00:00 Ancef 2 gm, Route: Inactive [facility] IVPB, ONCE, 2013 Medical Dosing Weight Center 100, kg, Priority: Routine, Start date: 06/17/13 12:49:00, Duration: 1 doses or times, Stop date: 06/17/13 12:49:00 Prozac 0 Refill(s) Active [address] Niacin 0 Refill(s) Active [address] Isosorbide 0 Refill(s) Active 06/17[facility] Dinitrate [address] [place] [address] Captopril 0 Refill(s) Active [address] Lasix 0 Refill(s) Active [address] Spiriva 0 Refill(s) Active [address] Aspirin / 0 Refill(s) Active 06/09[facility] Calcium [address] [place] [address] Center Allergies, Adverse Reactions, Alerts No Known Medication Allergies Immunizations Immunization Date Site Status Last Comments Source Given Updated influenza virus Right completed [facility] vaccine, 5 Deltoid Group, inactivated OPID Jesus OPIParis Reyna Hx influenza Right upper completed [facility]ena Admin Note: Medical vaccine-unspecif 4 arm Pt got flu Group, ied<sup>1</sup> vaccine at OPID PCP'S OFFICE. [facility] [place], OPIParis Reyna Hx pneumococcal Right arm completed [facility]ena Admin Note: Medical vaccine<sup>3</s 2 Pt got PNA Group, up> vaccine at OPID pcp office [facility] OPID [place] Hx pneumococcal Right arm completed Geena 2Admin Note: [facility] vaccine<sup>2</s 2 Pt got PNA up> vaccine at pcp office Hx influenza completed GE Result Medical vaccine-unspecif 2 Comment: [facility], ied<sup>2</sup> historical. OPID Migrated from [facility] OBS ; Data OPID migrated from [facility] on 05/19/2015. pneumococcal completed GE Result Medical 23-valent 0 Comment: [facility] vaccine<sup>4</s pneumovax. OPID up> Migrated from [facility] OBS ; Data OPID migrated from [facility] on 05/19/2015. Results Order Name Results Value Reference Date Interpretation Comments Source Range BLOOD BANK Antibody Negative 02/25 RESULTS Scrn (02/25/14 1:06 PM) /2013 [facility] BLOOD BANK ABO/Rh A POS 02/25 RESULTS /2013 [facility] HEMATOLOGY RBC 4.35 4.70 - 02/25 6.10 [facility] HEMATOLOGY Hgb 13.0 14.0 - 02/25 18.0 [facility] HEMATOLOGY WBC 9.8 3.7 - 10.4 02/25 /2013 [facility] HEMATOLOGY Hct 39.2 42.0 - 02/25 54.0 /2013 [facility] HEMATOLOGY MCV 90.1 80.0 - 02/25 94.0 /2013 [facility] HEMATOLOGY MCH 29.8 27.0 - 02/25 31.0 [facility] HEMATOLOGY MCHC 33.1 32.0 - 02/25 36.0 /2013 [facility] HEMATOLOGY RDW 14.4 11.5 - 02/25 14.5 /2013 [facility] HEMATOLOGY Platelet 187 133 - 450 02/25 /2013 [facility] HEMATOLOGY MPV 8.0 7.4 - 10.4 02/25 [facility] HEMATOLOGY Basophils 0.8 0.0 - 1.0 02/25 [facility] HEMATOLOGY Eosinophils 10.6 0.0 - 4.0 02/25 [facility] HEMATOLOGY Eosinophils 1.0 0.0 - 0.5 02/25 # /2013 [facility] HEMATOLOGY Basophils # 0.1 0.0 - 0.2 02/25 [facility] HEMATOLOGY Monocytes # 1.1 0.0 - 0.8 02/25 [facility] HEMATOLOGY Segs-Bands # 6.1 1.5 - 8.1 02/25 [facility] HEMATOLOGY Lymphocytes 1.4 1.0 - 5.5 02/25 # /2013 [facility] HEMATOLOGY Segs 62.8 45.0 - 02/25 75.0 /2013 [facility] HEMATOLOGY Monocytes 11.0 2.0 - 12.0 02/25 [facility] HEMATOLOGY Lymphocytes 14.8 20.0 - 02/25 40.0 [facility] CHEM PANEL eGFR 87 06/17 <sup>2</sup>R [facility] Medical Comment: The Center eGFR is calculated using the CKD-EPI formula. In most young, healthy individuals the eGFR will be >90 mL/min/1.73m2 . The eGFR declines with age. An eGFR of 60-89 may be normal in some populations, particularly the elderly, for whom the CKD-EPI formula has not been extensively validated. Use of the eGFR is not recommended in the following populations:& lt;br/>
I ndividuals with unstable creatinine concentration s, including patients and those with serious co-morbid conditions.<b r/>
Patie nts with extremes in muscle mass or diet.

The data above are obtained from the National Kidney Disease Education Program (NKDEP) which additionally recommends that when the eGFR is used in patients with extremes of body mass index for purposes of drug dosing, the eGFR should be multiplied by the estimated BMI. CHEM PANEL Creatinine 0.8 0.5 - 1.4 06/17 [facility] CHEM PANEL Sodium Lvl 140 135 - 145 06/17 [facility] CHEM PANEL Potassium 5.2 3.5 - 5.1 06/17 <sup>1</sup>R [facility] Medical Comment: Center Specimen Moderately Hemolyzed. CHEM PANEL Calcium Lvl 8.4 8.5 - 10.5 06/17 [facility] CHEM PANEL Chloride Lvl 108 95 - 109 06/17 [facility] CHEM PANEL CO2 27 24 - 32 06/17 [facility] CHEM PANEL AGAP 10.2 10.0 - 06/17 . [facility] CHEM PANEL Glucose Lvl 87 70 - 99 06/17 <sup>3</sup>I nterpretive Medical Data: Adult Center reference range values reflect the clinical guidelines
of the [place] [employer]. 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 TECHNIQUE: Routine [...] microangiopathic changes. Mild generalized cerebral volume loss. Hip min 2 views EXAM: Right hip series. 04/22/2013 BISHOPParis Reyna DATE: April 22, 2013. INDICATION: Pain in joint involving pelvic region [...] sed with arterial Doppler if clinically indicated. Consultation Notes No Data Provided for This Section Discharge Summaries No Data Provided for This Section History and Physicals No Data Provided for This Section Vital Signs Vital Sign Value Date Comments Source Temperature Oral (F) 97.6 F 02/26/2014 [facility] Heart Rate 87 02/26/2014 [facility] Respitory Rate 19 02/26/2014 [facility] Systolic (mm Hg) 156 02/26/2014 [facility] Diastolic (mm Hg) 64 02/26/2014 [facility] Respitory Rate 19 02/26/2014 [facility] Systolic (mm Hg) 137 02/26/2014 [facility] Diastolic (mm Hg) 77 02/26/2014 [facility] Heart Rate 80 02/26/2014 [facility] Temperature Oral (F) 98.4 F 02/26/2014 [facility] Diastolic (mm Hg) 74 02/26/2014 [facility] Systolic (mm Hg) 136 02/26/2014 [facility] Heart Rate 85 02/26/2014 [facility] Respitory Rate 16 02/26/2014 [facility] Temperature Oral (F) 98.4 F 02/26/2014 [facility] BMI Calculated 29.09 02/26/2014 [facility] Height 185.42 cm 02/26/2014 [facility] Weight 100 02/26/2014 [facility] Height 185.42 cm 02/25/2014 [facility] Weight 100 02/25/2014 [facility] BMI Calculated 29.09 02/25/2014 [facility] Respitory Rate 18 06/17/2013 [facility] Systolic (mm Hg) 144 06/17/2013 [facility] Diastolic (mm Hg) 70 06/17/2013 [facility] Systolic (mm Hg) 119 06/17/2013 [facility] Respitory Rate 15 06/17/2013 [facility] Diastolic (mm Hg) 66 06/17/2013 [facility] Systolic (mm Hg) 117 06/17/2013 [facility] Respitory Rate 16 06/17/2013 [facility] Diastolic (mm Hg) 67 06/17/2013 [facility] Heart Rate 68 06/17/2013 [facility] Weight 100 06/17/2013 [facility] Height 185.42 cm 06/17/2013 [facility] BMI Calculated 29.09 06/17/2013 [facility] Encounters Location Location Encounter Encounter Reason Attending ADM DC Status Source Details Type Number For Provider Date Date Visit OD [id number] 401.9 - RAFAEL 08/17 Active OPID 0 HYPERTEN [facility] OBS Day [id number] _MAPID:E Luis 06/17 06/18 [facility] [id number] [facility] /2013 [place] [address] [id number] [facility] OBS [id number] Wilber 02/26 02/26 [facility] Observation 2 [facility] /2013 [facility] Patient Hospital Outpatient [id number] RAFAEL 10/23 [facility] 1 [place] Outpatient [id number] RAFAEL 01/15 [facility] 2 [facility] Outpatient [id number] RAFAEL07/28 [facility] 3 [facility] Outpatient [id number] RAFAEL 10/13 [facility] Outpatient [id number] RAFAEL 10/19 [facility] Jesus Outpatient [id number] NURSE VISIT 12/21 [facility] Outpatient [id number] RAFAEL 01/13 [facility] 7 [facility] Outpatient [id number] RAFAEL 03/14 [facility] Outpt Diag [id number] Rafael 03/15 03/16 [facility] 2 [facility] [place] [facility] Outpt Diag [id number] Farshad 04/20 04/21 [facility] 3 [facility] [facility] [place] [facility] Phone [id number] 08/07 08/09 Primary Message Medical Care [facility] [place] Procedures Procedure Code Date Perfomer Comments Source ACD - Automatic [id number] 11/24/2009 Medical cardiac Group defibrillator procedure ACD - Automatic [id number] 11/24/2009 OPID cardiac Reyna defibrillator procedure ACD - Automatic [id number] 11/24/2009 OPID cardiac Jesus defibrillator procedure Lobectomy of lung [id number] 04/17/2005 Medical Group Lobectomy of lung [id number] 04/17/2005 OPID Reyna Lobectomy of lung [id number] 04/17/2005 [facility] Lobectomy of lung [id number] 04/17/2005 [facility] [place] Bronchoscopy [id number] 04/17/2003 Medical Group Bronchoscopy [id number] 04/17/2003 OP[facility] Reyna Bronchoscopy [id number] 04/17/2003 [place] Bronchoscopy [id number] 04/17/2003 [facility] [place] Prostatectomy [id number] 04/17/2000 Medical Group Prostatectomy [id number] 04/17/2000 OPID Reyna Prostatectomy [id number] 04/17/2000 [place] Prostatectomy [id number] 04/17/2000 [facility] [place] Stent placement [id number] Medical Group Stent placement [id number] OPID Reyna ACD - Automatic [id number] [facility] defibrillator procedure Stent placement [id number] [facility] Stent placement [id number] OPID [facility] Assessment and Plan Assessment and Plan Date Source Extracted from:Title: Clinical Document 06/18/2013 [facility] Author: Luis Esteves Ahmad Date: 06/17/2013 PREOPERATIVE DIAGNOSIS 1. Bilateral upper eyelid ptosis, patient symptomatic 2. Bilateral brow ptosis, patient symptomatic 3. Right upper eyelid papillomatous lesion 4. Right lower eyelid papillomatous lesion POST-OPERATIVE DIAGNOSIS 1. Bilateral upper eyelid ptosis, patient symptomatic 2. Bilateral brow ptosis, patient symptomatic 3. Right upper eyelid papillomatous lesion 4. Right lower eyelid papillomatous lesion PROCEDURES PERFORMED 1. Bilateral upper eyelid ptosis repair 2. Bilateral brow ptosis repair 3. Excision of right upper eyelid lesion 4. Excision of right lower eyelid lesion ANESTHESIA: Maximal anesthesia comfort; Combination of 2%Xylocaine with 1:100, 000 Adrenaline and 0.75% Marcaine SURGEON: Luis Esteves MD OPERATIVE NOTE: INDICATION;Patient was referred with cheif complaints of having difficulty with driving and seeing the upper part of his visual horn. On examination, he was found to have an evidence of upper eyelid p tosis along with bilateral brow ptosis. His MRD1 was decreased on both sides. Some of it was due to the leavator dehisence and some of it was due to the weight of the upper eyelid redundant skin as well as brow ptosis.It was noted that doing the upper eyelid ptosis was not going to be satisfactory for the patient. Also just doing the brow ptosis repair was not going be sufficient for the patient. Geno ent was informed that he needs both upper eyelid ptosis as well as brow ptosis repair. Patient was also noted to have small lesions over the right upper eyelid margin coming between and through the eyelashes. These small lesions appear to be papillomatous. There was also a linear lesion o joey the right lower eyelid which was approximately 3-4 mm wide and without any ulceration. Both of the right upper and lower eyelid lesions were causing the patient foreign body sensation. PROCEDURE IN DETAIL: In the holding area, patient was identified and consented to the indicated procedures. Patient was brought to the operating room and layed in the supine position on the operating ta ble. After anesthesia had complete acces to the patient's circulatory and respiratory system, the operative area was prepped and drapped in the usual sterile fashion for the ophthalmic plastic surg everardo. The marking was made. Then combination of xylocaine+adrenaline+marcaine was infiltrated over the right upper eyelid, right lower eyelid, left upper eyelid and over the both upper brow areas. After placement of corneal protective device, #15 Bard Anshu blade was utilized to make a linear incision over the right upper eyelid at the upper eyelid crease area. Another incision was made approxim ately 10 mm over the previous incision and then skin muscle flap was excised out. Cautery was utilized to achieve hemostasis. Then levator apponeurosis was advanced and sutured with 6.0 vicroyl suture t o the superior aspect of the upper tarsus.Upper eyelid crease and contour was adjusted.A similar procedrue was repeated over the left upper eyelid. Then attention was focussed to the right brow area. Th e #15 Bard Anshu blade was utilized to make a skin muscle incsion first over the margin of upper brow and then approimately 10 mm higher over the brow area. The skin muscle flap was excised out by the bro os sofi scissors and 0.5 forceps. Hemostasis was achieved by the use of a wet-field cautry. Then the area was irrigated with basic salt solution to get rid of any remnanats of cauterization. The n 4.0 chromic sutures were used to close the deeper aspect of the brow wound in an interrupted fashion and sutures were burried. Then 6.0 prolene sutures were used to close the superficial wound in a ru nning fashion. Similar type of surgical procedure was performed over the left upper brow area. Attention was focussed to the right upper eyelid, where multiple small lesions were found to be eminating throug his lashes. These lesions appeared to be papillomatous in nature and were shaved off with a sharp Sofi scissor. A small lesion over the right lower eyelid was shaved off as well by the use of sharp Sofi scissor. Maxitrol ophthalmic ointment was applied to the sutured areas and over the margins of right upper eyelid as well as right lower eyelid after cleaning the area. There were not complications. Patient was takne to the recovery room in satisfactory condition. Plan of Care No Data Provided for This Section Social History Social History Date Source Social History TypeResponse 01/14/2016 Medical Group Substance Abuse Use: None. Exercise 1 Employment/School Work/School description: Retired. Alcohol Past Smoking Status Former smoker; Exposure to Tobacco Smoke None; Cigarette Smoking Last 365 Days No; Reg Smoking Cessation Counseling No entered on: 03/14/16 1None Social History TypeResponse 01/14/2016 REBECA Reyna Substance Abuse Use: None. Exercise 1 Employment/School Work/School description: Retired. Alcohol Past Smoking Status Former smoker; Exposure to Tobacco Smoke None; Cigarette Smoking Last 365 Days No; Reg Smoking Cessation Counseling No 1None Social History TypeResponse 01/14/2016 REBECA Lee Substance Abuse Use: None. Exercise 1 Employment/School Work/School description: Retired. Alcohol Past Smoking Status Former smoker; Exposure to Tobacco Smoke None; Cigarette Smoking Last 365 Days No; Reg Smoking Cessation Counseling No 1None Social History TypeResponse 02/25/2014 [facility] Alcohol Use: Past Smoking Status Former smoker, Type: Cigarettes, Exposure to Tobacco Smoke None, Cigarette Smoking Last 365 Days No, Reg Smoking Cessation Counseling No Family History No Data Provided for This Section Advance Directives No Data Provided for This Section Functional Status No Data Provided for This Section
--- OUTSIDE RECORDS SUMMARY | 2018-11-20 20:15 | XMS REPORT | CCD ---
:1935 Author Organization [facility] Outpatient Imaging - [facility] Team Providers Name Role Phone Rafael Reyes Consulting Provider Allergies, Adverse Reactions, Alerts Substance Reaction Status NKDA Active Problem List Condition Effective Dates Status Pain Active
--- OUTSIDE RECORDS SUMMARY | 2018-11-20 20:16 | XMS REPORT | CCD ---
:1935 Author Organization [facility] Outpatient Imaging - [facility] Team Providers Name Role Phone Rafael Reyes Consulting Provider Allergies, Adverse Reactions, Alerts Substance Reaction Status NKDA Active Problem List Condition Effective Dates Status Pain Active
[2018-11-20] MEDS ORDERED: NA CHLORIDE 0.9% 1,000 ML ONE (20:49)
[2018-11-20] MEDS ORDERED: FAMOTIDINE 20 MG/2 ML VIAL IV ONE (20:49)
[2018-11-20 21:00] LABS: Basophils % 0.5 % (0-1.3); Hematocrit 40.8 % (39.6-49.0); Lymphocytes % 9.8 % (15.3-44.8); MPV 7.8 fL (7.6-11.3)
[2018-11-20 21:19] LABS: ALT/SGPT 19 U/L (12-78); AST/SGOT 16 U/L (15-37); Albumin 4.1 g/dL (3.4-5.0); Alkaline Phosphatase 75 U/L (45-117); BUN Blood Urea Nitrogen 24 mg/dL (7-18); Bicarbonate 33 mmol/L (21-32); Bilirubin Direct 0.2 mg/dL (0-0.2); Bilirubin Total 0.6 mg/dL (0.2-1.0); Glucose Level 130 mg/dL (74-106); Lipase 242 U/L (73-393); Magnesium 2.8 mg/dL (1.8-2.4); NT PRO-BNP 3782 pg/mL (<450); Potassium 3.8 mmol/L (3.5-5.1); Protein, Total 7.7 g/dL (6.4-8.2); Sodium Level 140 mmol/L (136-145); Troponin (Emerg Dept Use Only) < 0.02 ng/mL (0.0-0.045)
[2018-11-20 21:27] LABS: Blood Morphology Comment NOT SEEN (NOT SEEN); Platelet Estimate ADEQ
--- NOTE | 2018-11-20 21:58 | ER ---
Nurse's Notes [facility] Name: Jakob Romero Age: 83 yrs Sex: Male : 1935 Arrival Date: 11/20/2018 Time: 20:21 Bed 5 Private MD: Diagnosis: Abdominal tenderness;Chest pain, unspecified;Unspecified kidney failure;Cholelithiasis Presentation: 11/20 20:20 Presenting complaint: EMS states: that pt was eating at 1700 and then shortly after fc that started to have epigastric pain. Took Pepto at 1800. Denies any nausea, vomiting or diarrhea. Has had some constipation. Last BM 3-4 days ago. Also denies any worsening shortness of breath. Transition of care: patient was not received from another setting of care. Onset of symptoms was November 20, 2018 at 17:15. Risk Assessment: Do you want to hurt yourself or someone else? Patient reports no desire to harm self or others. Initial Sepsis Screen: Does the patient meet any 2 criteria? No. Patient's initial sepsis screen is negative. Does the patient have a suspected source of infection? No. Patient's initial sepsis screen is negative. Care prior to arrival: Glucose check: 168 bp 132/79, heart rate of 75 and sats of 100% on 2 L per n/c. 20:20 Method Of Arrival: EMS: [facility] 20:20 Acuity: NETTE 3 fc Historical: - Allergies: 20:31 No Known Allergies; fc - Home Meds: 20:31 amiodarone 200 mg Oral tab 1 tab once daily [Active]; Asmanex HFA 100 mcg/actuation fc inhalation HFAA 2 puffs 2 times per day [Active]; aspirin 81 mg Oral chew 1 tab once daily [Active]; Entresto 97-103 mg Oral tab 1 tab 2 times per day [Active]; famotidine 20 mg Oral tab 1 tab once daily [Active]; fluoxetine 20 mg Oral cap 1 cap once daily [Active]; furosemide 40 mg Oral tab 1 tab 2 times per day [Active]; metoprolol succinate 25 mg Oral Tb24 1 tab once daily [Active]; Sprivia 18 mcg daily [Active]; - PMHx: 20:31 Angina; Depression; Hypertension; Myocardial infarction; Prostate Cancer; COPD; CAD; fc - PSHx: 20:31 Pacer/Defib; Heart stents; Prostate removal; Lung surg x 2; fc - Immunization history:: Last tetanus immunization: unknown. - Social history:: Smoking status: Patient/guardian denies using tobacco, Patient/guardian denies using alcohol, street drugs. - Ebola Screening: : Patient negative for fever greater than or equal to 101.5 degrees Fahrenheit, and additional compatible Ebola Virus Disease symptoms Patient denies exposure to infectious person Patient denies travel to an Ebola-affected area in the 21 days before illness onset. - Family history:: not pertinent. Screenin:20 Abuse screen: Denies threats or abuse. Nutritional screening: No deficits noted. fc Tuberculosis screening: No symptoms or risk factors identified. Fall Risk None identified. Assessment: 20:28 General: Appears in no apparent distress. uncomfortable, Behavior is calm, cooperative. ak1 Pain: Complains of pain in epigastric area, right upper quadrant and left upper quadrant. Neuro: Level of Consciousness is awake, alert, obeys commands, Oriented to person, place, time, situation, Oil Rigger are equal bilaterally Moves all extremities. Speech is normal, Facial symmetry appears normal. Cardiovascular: No deficits noted. Respiratory: Airway is patent Respiratory effort is even, unlabored, Respiratory pattern is regular, pt uses oxygen at home Breath sounds are clear bilaterally. GI: Abdomen is round Bowel sounds present X 4 quads. Abd is soft and non tender X 4 quads. : No signs and/or symptoms were reported regarding the genitourinary system. EENT: No signs and/or symptoms were reported regarding the EENT system. Derm: No signs and/or symptoms reported regarding the dermatologic system. Musculoskeletal: No signs and/or symptoms reported regarding the musculoskeletal system. 21:14 Reassessment: Patient appears in no apparent distress at this time. No changes from ak1 previously documented assessment. Patient and/or family updated on plan of care and expected duration. Pain level reassessed. Patient is alert, oriented x 3, equal unlabored respirations, skin warm/dry/pink. pt stated "i am ready to go home" family at bedside. Patient states feeling better. Patient states symptoms have improved. 22:18 Reassessment: Patient appears in no apparent distress at this time. Patient and/or cc3 family updated on plan of care and expected duration. Pain level reassessed. Patient is alert, oriented x 3, equal unlabored respirations, skin warm/dry/pink. 23:30 Reassessment: Patient appears in no apparent distress at this time. Patient and/or cc3 family updated on plan of care and expected duration. Pain level reassessed. Patient is alert, oriented x 3, equal unlabored respirations, skin warm/dry/pink. Patient for admission, room available in 224, report called and handed over to NIYA Smith for continuity of care and management. 23:40 Reassessment: Patient appears in no apparent distress at this time. Patient and/or cc3 family updated on plan of care and expected duration. Pain level reassessed. Patient is alert, oriented x 3, equal unlabored respirations, skin warm/dry/pink. Patient left ER for admission vitally stable by stretcher escorted by heat treat technicianberny Escoto and the patient's family. No valuables left in the patient's room. Patient denies pain at this time. Patient states feeling better. Patient states symptoms have improved. Vital Signs: 20:20 BP 115 / 61; Pulse 72; Resp 20; Temp 98.0(O); Pulse Ox 100% on 2 lpm NC; Weight 88.45 fc kg (R); Height 6 ft. 1 in. (185.42 cm) (R); Pain 3/10; 21:20 BP 125 / 59; Pulse 73; Resp 15; Temp 98.0; Pulse Ox 100% on 2 lpm NC; Pain 0/10; ak1 22:18 BP 126 / 77; Pulse 68; Resp 15 S; Pulse Ox 100% on 2 lpm NC; cc3 23:30 BP 119 / 70; Pulse 66; Resp 12 S; Pulse Ox 99% on 2 lpm NC; cc3 20:20 Body Mass Index 25.73 (88.45 kg, 185.42 cm) fc ED Course: 20:18 Vicki Hancock is Primary Nurse. cc3 20:20 Arm band placed on Patient placed in an exam room, on a stretcher. fc 20:20 Patient has correct armband on for positive identification. Placed in gown. Bed in low fc position. Call light in reach. Side rails up X2. mechanical planner on. Pulse ox on. NIBP on. 20:20 No provider procedures requiring assistance completed. fc 20:21 Patient arrived in ED. ds1 20:27 Triage completed. fc 20:28 EKG done, by ED staff, reviewed by El Witt MD. Oxygen administration via nasal ak1 cannula \\T\\ 2L/min. 20:34 Gabriel Guzman MD is Attending Physician. nestor 20:58 Inserted saline lock: 22 gauge in right antecubital area, using aseptic technique. ak1 Blood collected. 21:37 XRAY Chest (1 view) In Process Unspecified. EDMS 21:54 Leonard Cueto MD is Hospitalizing Provider. [facility] 22:26 US Abdomen Limited In Process Unspecified. EDMS 23:30 Patient admitted, IV remains in place. cc3 Administered Medications: 20:55 Drug: Pepcid 20 mg Route: IVP; Site: right antecubital; cc3 21:19 Follow up: Response: No adverse reaction ak1 20:55 Drug: NS 0.9% 1000 ml Route: IV; Rate: 75 ml/hr; Site: right antecubital; cc3 23:00 Follow up: Response: No adverse reaction; IV Status: Infusion continued upon admission; cc3 IV Intake: 150ml 22:25 Drug: Aspirin 162 mg Route: PO; cc3 23:00 Follow up: Response: No adverse reaction cc3 22:30 Drug: Lovenox 40 mg Route: Sub-Q; Site: right lower abdomen; cc3 23:00 Follow up: Response: No adverse reaction cc3 22:50 Drug: Zosyn 3.375 grams Route: IVPB; Infused Over: 60 mins; Site: right antecubital; cc3 23:00 Follow up: Response: No adverse reaction; IV Status: Infusion continued upon admission cc3 Intake: 23:00 IV: 150ml; Total: 150ml. cc3 Outcome: 21:57 Decision to Hospitalize by Provider. [facility] 23:30 Admitted to Med/surg accompanied by tech, family with patient, via stretcher, room 224, cc3 with chart, Report called to NIYA Smith 23:30 Condition: stable 23:30 Instructed on the need for admit, Demonstrated understanding of instructions. 23:40 Patient left the ED. cc3 Signatures: Dispatcher [employer] EDUT Gabriel Guzman MD MD cha Chretien, Felicia, RN RN Jonelle Underwood [facility] Radha Kurtz RN RN [email or web address] Vicki Hancock cc3
--- NOTE | 2018-11-20 21:58 | EDPHYS ---
Physician Documentation [facility] Name: Jakob Romero Age: 83 yrs Sex: Male : 1935 Arrival Date: 11/20/2018 Time: 20:21 Bed 5 Private MD: ED Physician Gabriel Guzman HPI: 11/20 21:36 This 83 yrs old Male presents to ER via EMS with complaints of Epigastric nestor Pain. 21:36 The patient or guardian reports chest pain that is located primarily in the epigastric nestor area. Onset: just prior to arrival, this morning, 1 day(s) ago. The pain does not radiate. Associated signs and symptoms: The patient has no apparent associated signs or symptoms. The chest pain is described as a pressure. Duration: The patient or guardian reports a single episode, that is now resolved. Modifying factors: The symptoms are alleviated by nothing. the symptoms are aggravated by nothing. Severity of pain: At its worst the pain was mild in the emergency department the pain has resolved. It is unknown whether or not the patient has had similar symptoms in the past. Historical: - Allergies: 20:31 No Known Allergies; fc - Home Meds: 20:31 amiodarone 200 mg Oral tab 1 tab once daily [Active]; Asmanex HFA 100 mcg/actuation fc inhalation HFAA 2 puffs 2 times per day [Active]; aspirin 81 mg Oral chew 1 tab once daily [Active]; Entresto 97-103 mg Oral tab 1 tab 2 times per day [Active]; famotidine 20 mg Oral tab 1 tab once daily [Active]; fluoxetine 20 mg Oral cap 1 cap once daily [Active]; furosemide 40 mg Oral tab 1 tab 2 times per day [Active]; metoprolol succinate 25 mg Oral Tb24 1 tab once daily [Active]; Sprivia 18 mcg daily [Active]; - PMHx: 20:31 Angina; Depression; Hypertension; Myocardial infarction; Prostate Cancer; COPD; CAD; fc - PSHx: 20:31 Pacer/Defib; Heart stents; Prostate removal; Lung surg x 2; fc - Immunization history:: Last tetanus immunization: unknown. - Social history:: Smoking status: Patient/guardian denies using tobacco, Patient/guardian denies using alcohol, street drugs. - Ebola Screening: : Patient negative for fever greater than or equal to 101.5 degrees Fahrenheit, and additional compatible Ebola Virus Disease symptoms Patient denies exposure to infectious person Patient denies travel to an Ebola-affected area in the 21 days before illness onset. - Family history:: not pertinent. ROS: 21:36 Constitutional: Negative for fever, chills, and weight loss, Eyes: Negative for injury, nestor pain, redness, and discharge, ENT: Negative for injury, pain, and discharge, Neck: Negative for injury, pain, and swelling, Respiratory: Negative for shortness of breath, cough, wheezing, and pleuritic chest pain, Abdomen/GI: Negative for abdominal pain, nausea, vomiting, diarrhea, and constipation, Back: Negative for injury and pain, : Negative for injury, bleeding, discharge, and swelling, MS/Extremity: Negative for injury and deformity, Skin: Negative for injury, rash, and discoloration, Neuro: Negative for headache, weakness, numbness, tingling, and seizure, Psych: Negative for depression, anxiety, suicide ideation, homicidal ideation, and hallucinations, Allergy/Immunology: Negative for hives, rash, and allergies, Endocrine: Negative for neck swelling, polydipsia, polyuria, polyphagia, and marked weight changes, Hematologic/Lymphatic: Negative for swollen nodes, abnormal bleeding, and unusual bruising. 21:36 Cardiovascular: Positive for chest pain. Exam: 21:36 Constitutional: This is a well developed, well nourished patient who is awake, alert, nestor and in no acute distress. Head/Face: Normocephalic, atraumatic. Eyes: Pupils equal round and reactive to light, extra-ocular motions intact. Lids and lashes normal. Conjunctiva and sclera are non-icteric and not injected. Cornea within normal limits. Periorbital areas with no swelling, redness, or edema. ENT: Nares patent. No nasal discharge, no septal abnormalities noted. Tympanic membranes are normal and external auditory canals are clear. Oropharynx with no redness, swelling, or masses, exudates, or evidence of obstruction, uvula midline. Mucous membranes moist. Neck: Trachea midline, no thyromegaly or masses palpated, and no cervical lymphadenopathy. Supple, full range of motion without nuchal rigidity, or vertebral point tenderness. No Meningismus. Chest/axilla: Normal chest wall appearance and motion. Nontender with no deformity. No lesions are appreciated. Cardiovascular: Regular rate and rhythm with a normal S1 and S2. No gallops, murmurs, or rubs. Normal PMI, no JVD. No pulse deficits. Respiratory: Lungs have equal breath sounds bilaterally, clear to auscultation and percussion. No rales, rhonchi or wheezes noted. No increased work of breathing, no retractions or nasal flaring. Abdomen/GI: Soft, non-tender, with normal bowel sounds. No distension or tympany. No guarding or rebound. No evidence of tenderness throughout. Back: No spinal tenderness. No costovertebral tenderness. Full range of motion. Male : Normal genitalia with no discharge or lesions. Skin: Warm, dry with normal turgor. Normal color with no rashes, no lesions, and no evidence of cellulitis. MS/ Extremity: Pulses equal, no cyanosis. Neurovascular intact. Full, normal range of motion. Neuro: Awake and alert, GCS 15, oriented to person, place, time, and situation. Cranial nerves II-XII grossly intact. Motor strength 5/5 in all extremities. Sensory grossly intact. Cerebellar exam normal. Normal gait. Psych: Awake, alert, with orientation to person, place and time. Behavior, mood, and affect are within normal limits. 21:36 Musculoskeletal/extremity: DVT Exam: No signs of deep vein thrombosis. no pain, no swelling, no tenderness, negative Homans' sign noted on exam, no appreciated bluish discoloration, no erythema, no increased warmth. Vital Signs: 20:20 BP 115 / 61; Pulse 72; Resp 20; Temp 98.0(O); Pulse Ox 100% on 2 lpm NC; Weight 88.45 fc kg (R); Height 6 ft. 1 in. (185.42 cm) (R); Pain 3/10; 21:20 BP 125 / 59; Pulse 73; Resp 15; Temp 98.0; Pulse Ox 100% on 2 lpm NC; Pain 0/10; ak1 22:18 BP 126 / 77; Pulse 68; Resp 15 S; Pulse Ox 100% on 2 lpm NC; cc3 23:30 BP 119 / 70; Pulse 66; Resp 12 S; Pulse Ox 99% on 2 lpm NC; cc3 20:20 Body Mass Index 25.73 (88.45 kg, 185.42 cm) fc MDM: 20:34 Patient medically screened. [facility] 21:44 Data reviewed: vital signs, nurses notes, lab test result(s), EKG, radiologic studies, nestor plain films. 11/20 20:35 Order name: Basic Metabolic Panel [facility] 11/20 20:35 Order name: CBC with Diff [facility] 11/20 20:35 Order name: LFT's; Complete Time: 21:34 [facility] 11/20 20:35 Order name: Magnesium; Complete Time: 21:34 [facility] 11/20 20:35 Order name: NT PRO-BNP; Complete Time: 21:34 [facility] 11/20 20:35 Order name: PT-INR; Complete Time: 21:34 [facility] 11/20 20:35 Order name: Troponin (emerg Dept Use Only); Complete Time: 21:34 [facility] 11/20 20:35 Order name: XRAY Chest (1 view) [facility] 11/20 20:35 Order name: Lipase; Complete Time: 21:34 [facility] 11/20 20:36 Order name: Basic Metabolic Panel; Complete Time: 21:34 [facility] 11/20 20:36 Order name: CBC with Automated Diff; Complete Time: 21:34 [facility] 11/20 21:07 Order name: Manual Differential; Complete Time: 21:34 [facility] 11/20 22:52 Order name: Urine Dipstick--Ancillary (enter results) [facility] 11/20 22:57 Order name: Urine Dipstick-Ancillary [facility] 11/20 20:35 Order name: EKG; Complete Time: 20:37 [facility] 11/20 20:35 Order name: Cardiac monitoring; Complete Time: 20:37 [facility] 11/20 20:35 Order name: EKG - Nurse/Tech; Complete Time: 20:37 [facility] 11/20 20:35 Order name: IV Saline Lock; Complete Time: 21:20 [facility] 11/20 20:35 Order name: Labs collected and sent; Complete Time: 21:20 [facility] 11/20 20:35 Order name: O2 Per Protocol; Complete Time: 20:37 [facility] 11/20 20:35 Order name: O2 Sat Monitoring; Complete Time: 20:37 [facility] 11/20 20:35 Order name: Urine Dipstick-Ancillary (obtain specimen); Complete Time: 22:45 [facility] 11/20 21:53 Order name: US Abdomen Limited [facility] 11/20 22:03 Order name: CONS Physician Consult [facility] 11/20 22:17 Order name: NPO; Complete Time: 22:31 [facility] Administered Medications: 20:55 Drug: Pepcid 20 mg Route: IVP; Site: right antecubital; cc3 21:19 Follow up: Response: No adverse reaction ak1 20:55 Drug: NS 0.9% 1000 ml Route: IV; Rate: 75 ml/hr; Site: right antecubital; cc3 23:00 Follow up: Response: No adverse reaction; IV Status: Infusion continued upon admission; cc3 IV Intake: 150ml 22:25 Drug: Aspirin 162 mg Route: PO; cc3 23:00 Follow up: Response: No adverse reaction cc3 22:30 Drug: Lovenox 40 mg Route: Sub-Q; Site: right lower abdomen; cc3 23:00 Follow up: Response: No adverse reaction cc3 22:50 Drug: Zosyn 3.375 grams Route: IVPB; Infused Over: 60 mins; Site: right antecubital; cc3 23:00 Follow up: Response: No adverse reaction; IV Status: Infusion continued upon admission cc3 Disposition: 11/20/18 21:57 Hospitalization ordered by Leonard Cueto for Inpatient Admission. Preliminary diagnosis are Abdominal tenderness, Chest pain, unspecified, Unspecified kidney failure, Cholelithiasis. - Bed requested for Telemetry/MedSurg (Inpatient). - Status is Inpatient Admission. cc3 - Condition is Stable. - Problem is new. - Symptoms have improved. UTI on Admission? No Signatures: Dispatcher [employer] [facility] Mahnaz Renteria RN RN aj1 Gabriel Guzman MD MD cha Chretien, Felicia, RN RN fc Cordel, Charlene cc3 Radha Kurtz RN ak1 Corrections: (The following items were deleted from the chart) 22:01 21:57 Hospitalization Ordered by Leonard Cueto MD for Observation. Preliminary diagnosis aj1 is Abdominal tenderness; Chest pain, unspecified; Unspecified kidney failure. Bed requested for Telemetry/MedSurg (observation). Status is Observation. Condition is Stable. Problem is new. Symptoms have improved. UTI on Admission? No. [facility] 22:18 22:01 11/20/2018 21:57 Hospitalization Ordered by Leonard Cueto MD for Observation. [facility] Preliminary diagnosis is Abdominal tenderness; Chest pain, unspecified; Unspecified kidney failure. Bed requested for Telemetry/MedSurg (observation). Status is Observation. Condition is Stable. Problem is new. Symptoms have improved. UTI on Admission? No. aj1 22:18 22:18 11/20/2018 21:57 Hospitalization Ordered by Leonard Cueto MD for Inpatient aj1 Admission. Preliminary diagnosis is Abdominal tenderness; Chest pain, unspecified; Unspecified kidney failure; Cholelithiasis. Bed requested for Telemetry/MedSurg (Inpatient). Status is Inpatient Admission. Condition is Stable. Problem is new. Symptoms have improved. UTI on Admission? No. nestor 23:40 22:18 11/20/2018 21:57 Hospitalization Ordered by Leonard Cueto MD for Inpatient cc3 Admission. Preliminary diagnosis is Abdominal tenderness; Chest pain, unspecified; Unspecified kidney failure; Cholelithiasis. Bed requested for Telemetry/MedSurg (Inpatient). Status is Inpatient Admission. Condition is Stable. Problem is new. Symptoms have improved. UTI on Admission? No. aj1
[2018-11-20] MEDS ORDERED: ASPIRIN 81 MG CHEWABLE TABLET ONE (22:10)
[2018-11-20] MEDS ORDERED: ENOXAPARIN 40 MG/0.4 ML SQ ONE (22:10)
[2018-11-20] MEDS ORDERED: PIPER/TAZO/NS 3.375gm 3.375 GM/100 ML BAG ONE ×2 (22:51→23:42)
[2018-11-20 22:57] LABS: Urine Blood NEGATIVE (NEG); Urine Glucose NEGATIVE (NEG); Urine Protein NEGATIVE (NEG); Urine pH 5.5 (5.0-7.0)
[2018-11-20] MEDS ORDERED: ACETAMINOPHEN 500 MG TAB PO PRN (23:40)
[2018-11-20] MEDS ORDERED: ONDANSETRON 4 MG/2 ML VIAL IV PRN (23:40)
[2018-11-20] MEDS ORDERED: MORPHINE 4 MG/ML SYR IV PRN (23:40)
[2018-11-21 00:36] VITALS: BMI 26.2
[2018-11-21] MEDS: IPRATROPIUM BROM 0.5MG/2.5ML NEB SCH ×2 (02:00→08:07)
[2018-11-21] MEDS: LEVALBUTEROL 1.25 MG/3 ML NEB NEB SCH ×2 (02:00→08:07)
[2018-11-21] MEDS ORDERED: PIPER/TAZO/NS 3.375gm 3.375 GM/100 ML BAG IVPB SCH (06:00)
[2018-11-21] MEDS ORDERED: METOPROLOL TAR 25 MG TAB PO SCH (06:00)
[2018-11-21 06:14] LABS: Absolute Lymphocytes (CBC) 1.4 K/uL (0.7-4.9); Basophils % 0.4 % (0-1.3); Hematocrit 34.5 % (39.6-49.0); MPV 8.2 fL (7.6-11.3); RBC Red Blood Cell Count 3.75 M/uL (4.33-5.43)
[2018-11-21 06:36] LABS: Potassium 4.3 mmol/L (3.5-5.1)
--- NOTE | 2018-11-21 07:09 | EKG ---
Test Date: 2018-11-20 Test Time: 20:31:01 Certified Juvenile Probation Officer: HEATHER MEASUREMENT RESULTS: Intervals: Rate: 82 SD: QRSD: 154 QT: 512 QTc: 598 [place]: P: SD: QRS: -85 T: 79 INTERPRETIVE STATEMENTS: Atrial-sensed ventricular-paced rhythm tracking Sinus rhythm with premature atrial complexes and atrial paced complexes and premature ventricular complexes Abnormal ECG Compared to ECG 07/17/2018 10:32:49 no significant change from previous ECG Electronically Signed On 11-21-18 07:08:51 CDT by Oskar Saha
[2018-11-21 08:17] VITALS: BP 112/67; TEMP 97.3
--- NOTE | 2018-11-21 08:31 | RAD REPORT ---
EXAM DESCRIPTION: RAD - Chest Single View - 11/20/2018 9:31 pm CLINICAL HISTORY: Cough, abdominal pain COMPARISON: July 2018 TECHNIQUE: AP portable chest image was obtained 6 hour . FINDINGS: No acute lung parenchymal process seen. Fibrotic lung pattern matches the comparison. Left -sided pacemaker/ defibrillator in place. Cardiomegaly matches comparison. No vascular engorgement. N o pneumothorax or measurable pleural effusion. Minimal right costophrenic angle blunting is stable. N o acute bony abnormality seen. No acute aortic findings suspected. IMPRESSION: No acute cardiopulmonary process. Chronic cardiomegaly and chronic interstitial opacities match comparison.
--- NOTE | 2018-11-21 08:42 | RAD REPORT ---
EXAM DESCRIPTION: US - Abdomen Exam Limited - 11/20/2018 10:21 pm CLINICAL HISTORY: Abdominal pain Preliminary findings provided at the time of the study. COMPARISON: None. FINDINGS: Gallbladder size is normal. There are several mobile gallstones identified. Largest is 2.2 cm. There is no wall thickening or pericholecystic fluid. No intrahepatic biliary tree dilatation identified. Extrahepatic duct is difficult to visualize. Duct stone an biliary tree dilatation are not identified. IMPRESSION: Multiple mobile gallstones are identified largest at 2.2 cm. No wall thickening or pericholecystic fluid. Suboptimal visualization of the biliary tree. No duct stone or biliary tree dilatation identified.
[2018-11-21 08:46] LABS: Anisocytosis 1+; Blood Morphology Comment NOTED (NOT SEEN); Platelet Estimate ADEQ
[2018-11-21] MEDS ORDERED: FUROSEMIDE 20 MG TABLET PO SCH (09:00)
[2018-11-21] MEDS ORDERED: AMIODARONE HCL 200 MG TAB PO SCH (09:00)
[2018-11-21] MEDS ORDERED: ASPIRIN EC 81 MG TAB PO SCH (09:00)
[2018-11-21] MEDS ORDERED: FAMOTIDINE 20 MG/2 ML VIAL IV SCH (09:00)
--- NOTE | 2018-11-21 09:19 | EKG ---
Test Date: 2018-11-21 Test Time: 07:58:04 Cilnical Scientist: JULIETA MEASUREMENT RESULTS: Intervals: Rate: 78 SC: 104 QRSD: 164 QT: 422 QTc: 481 [place]: P: 40 SC: 104 QRS: -75 T: 86 INTERPRETIVE STATEMENTS: Atrial-sensed ventricular-paced rhythm tracking Sinus rhythm with PAC s Left axis deviation Right bundle branch block Anteroseptal infarct, age undetermined Abnormal ECG Compared to ECG 11/20/2018 20:31:01 no significant change from previous ECG Electronically Signed On 11-21-18 09:18:43 CDT by Oskar Saha
[2018-11-21 09:32] VITALS: O2SAT 98
--- NOTE | 2018-11-21 10:31 | CON ---
History Of Present Illness: Mr. Romero is 83. He came to the hospital because he had about 5 seconds of epigastric pain associated with eating. Cardiac enzymes are normal. 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 He has a defibrillator. He has had stents in his heart. His defibrillator has not shocked him for several years. He is up to date with defibrillator checks. Physical Examination: Vital Signs: 6 feet tall, 193 pounds. HEENT: Unremarkable. Lungs: No crackles or wheeze. Heart: Laterally displaced apical impulse. 1 to 2/6 holosystolic murmur. No diastolic murmur. Abdomen: Soft. Extremities: Trace edema. Distal pulses diminished but palpable. The electrocardiogram reveals atrial sensed ventricular paced rhythm, tracking sinus rhythm with PACs and atrial paced complexes and PVCs. No significant change from older EKGs. Impression: The patient probably had epigastric painfrom the stomach esophagus or gall bladder. I would recommend he be discharged home without any changes in his medicines. I have asked him to do a nuclear stress test as an outpatient. JEROD Voice ID: [id number] Report ID: [id number] NETTA
--- NOTE | 2018-11-21 12:02 | ECHO ---
HEIGHT: 6 ft 0 in WEIGHT: 193 lb 0 oz DATE OF STUDY: 11/21/[address]: Gabriel Guzman MD 2-DIMENSIONAL: YES M.MODE: YES DOPPLER: YES COLOR FLOW: YES TDS: NO PORTABLE: NO DEFINITY: NO BUBBLE STUDY: NO DIAGNOSIS: CHEST PAIN CARDIAC HISTORY: CATHERIZATION: YES SURGERY: NO PROSTHETIC VALVE: NO PACEMAKER: YES MEASUREMENTS (cm) DIASTOLIC (NORMALS) SYSTOLIC (NORMALS) IVSd 1.2 (0.6-1.2) LA Diam 4.0 (1.9-4.0) LVEF 20-25% LVIDd 6.8 (3.5-5.7) LVIDs 5.4 (2.0-3.5) %FS 21% LVPWd 1.2 (0.6-1.2) Ao Diam 3.4 (2.0-3.7) 2 DIMENSIONAL ASSESSMENT: RIGHT ATRIUM: DILATED LEFT ATRIUM: DILATED RIGHT VENTRICLE: DILATED/PACEMAKER CATHETER IN RIGHT VENTRICLE LEFT VENTRICLE: DILATED TRICUSPID VALVE: NORMAL MITRAL VALVE: NORMAL PULMONIC VALVE: NORMAL AORTIC VALVE: NORMAL PERICARDIAL EFFUSION: NONE AORTIC ROOT: NORMAL LEFT VENTRICULAR WALL MOTION: SEVERE GLOBAL HYPOKINESIS. DOPPLER/COLOR FLOW: MILD MITRAL AND TRICUSPID REGURGITATION. NORMAL RIGHT VENTRICULAR SYSTOLIC PRESURE. COMMENTS: FOUR CHAMBER DILATATION. SEVERELY DEPRESSED LEFT VENTRICULAR EJECTION FRACTION. PACEMAKER CATHETER IN RIGHT VENTRICULAR APEX. MILD AND TRICUSPID REGURGITATION. TECHNOLOGIST: DILIP MCKEON
--- NOTE | 2018-11-21 15:09 | CON ---
Date of Consultation: 11/21/2018 Brief History Of Present Illness: The patient is an 83-year-old male, who presents to the ER with approximately 1-day history of substernal chest pain, which had no radiation. He has had sev eral episodes before in the past where he has the pain that sits in that area. It feels like a press ure and sharp stabbing pain at times. There was no other aggravating or alleviating factors. He tri ed taking Pepto-Bismol without resolution or improvement and as such he came to the emergency room wi th the above-stated complaints. Past Medical History: Significant for angina, depression, hypertension, myocardial infarction, prost ate cancer, COPD, coronary artery disease. Past Surgical History: He has had a pacemaker defibrillator placement, heart stents, prostate remova l, lung surgery x2. Allergies: NO KNOWN DRUG ALLERGIES. Home Medications: Include amiodarone, Asmanex, aspirin, Entresto, famotidine, fluoxetine, furosemide , metoprolol, Spiriva. Social History: He denies smoking, alcohol, recreational drug use at this time. Review of Systems: A 10-point review of systems other than HPI, denies. He states that his chest pain is significantly improved and is almost completely resolved at this point. Physical Examination: Vital Signs: At the time of my examination, his BMI is 26.2. His vital signs; blood pressure 112/67 , pulse 65, respiratory rate 16, temperature 97.3. General: He is awake, alert, oriented. Psychiatric: Appropriate. Conversive. HEENT: Normocephalic. Sclerae icteric. Mucous membranes moist. Oropharynx is clear. Neck: Supple. No JVD. Chest: Normal expansion and excursion. Cardiovascular: Regular rate and rhythm. Pulmonary: Clear to auscultation bilaterally. Abdomen: Soft, nontender, nondistended. No rebound. No guarding. No focal peritonitis. Negative Miles sign. Negative psoas sign. Extremities: No clubbing, cyanosis, edema. Laboratory Data: Reveals a white blood cell count of 9.0, hemoglobin 11.5, hematocrit of 34.5, plate let count 161. His sodium 145, potassium 4.3, chloride 106, carbon dioxide 34, BUN 23, creatinine 1. 45. His glucose is 107. His troponins were less than 0.02 on two checks. ProBNP is 3782. Lipase i s 242. UA was negative. Imaging Studies: He had imaging performed, which included an ultrasound of his gallbladder, which wa s officially read as multiple mobile gallstones identified the largest at 2.2 cm. No wall thickening or pericholecystic fluid. Suboptimal visualization of biliary tree. No duct stone or biliary tree dilatation identified though. Assessment And Plan: This is an 83-year-old male, who comes in with substernal chest pain, likely of cardiovascular/cardiopulmonary origin. 1.Continue medical management. 2.Patient does not have an indication for surgical intervention at this time. I have explained the risks, benefits, and alternatives of this plan to the patient. He agrees to proceed as indicated. Thank you for this interesting consult. JOYCE/RADHA Voice ID: [id number] Report ID: [id number]
--- NOTE | 2018-11-22 06:17 | HP ---
Date of Admission: 11/20/2018 Chief Complaint: Abdominal pain. History Of Present Illness: This is an 83-year-old pleasant male patient who lives at home with his , came into the emergency room last night with 2 days' history of epigastric abdominal pain. The pain has been intermittent. No relation with activity or meal. No radiation of pain anywhere. No associated symptoms like nausea or vomiting. No fever or chills. No constipation or diarrhea. Afte r patient was evaluated in the ER, he was admitted to the hospital. When I saw him this morning, he was asymptomatic. Medications: List reviewed. Allergies: NO KNOWN ALLERGIES. Review of Systems: GI as mentioned above. All other systems reviewed and negative. Family History: Not pertinent. Social History: Prior history of smoking, not at present time. Use of alcohol negative. Past Surgical History: Significant for AICD placement; right lower lung lobectomy, not cancer relate d; and surgery for prostate cancer. Past Medical History: Chronic systolic congestive heart failure, gastroesophageal reflux disease, CO PD, depression, prostate cancer, hypertension, anemia. For prostate cancer, he had a prostatectomy d one in the past and in 2018 he had radiation therapy. Physical Examination: Vital Signs: Height 6 feet, weight 193 pounds, temperature 98.1, pulse 74, respiratory rate 16, bloo d pressure 98/65, oxygen saturation 100%. General: Awake, alert, oriented, not in distress. HEENT: Head atraumatic, normocephalic. Conjunctivae nonerythematous. Sclerae white. Mouth, no thr ush or edema noted. Ears/Nose, no mass, lesion, discharge noted. Neck: Supple. No JVD, lymph nodes, bruit, thyromegaly noted. Lungs: Bilateral good equal air entry. Clear to auscultation. No rhonchi. No rales. Heart: Normal heart sounds, no murmur or gallop. Abdomen: Soft, bowel sounds normal. No guarding, rigidity, tenderness, mass, hepatosplenomegaly, dis tention, or bruit noted. Extremities: No leg edema. No calf tenderness. Skin: No rash, ulcer, cellulitis. Lymphatics: No lymph node enlargement in neck, supraclavicular, infraclavicular region. Neuro: No focal neurological deficit. Chest: Unremarkable. External Genitalia: Deferred. Rectal: Deferred. Laboratory Data: Yesterday, white count 9.7, hemoglobin 13.6, platelets 195. Today, white count 9, hemoglobin 11.5, platelets 161. Yesterday, sodium 140, potassium 3.8, chloride 102, bicarb 33, BUN 2 4, creatinine 1.63, glucose 130. Liver function tests unremarkable. Troponin less than 0.02. Lipas e 242. This morning, sodium 145, potassium 4.3, chloride 106, bicarb 34, BUN 23, creatinine 1.45, gl ucose 107. Urinalysis negative. Chest x-ray, no acute cardiopulmonary changes. Abdominal ultrasoun d shows evidence of gallstone, but no evidence of gallbladder wall thickening or any pericholecystic fluid. Hospital Course: The patient was evaluated in the ER. He was admitted to the hospital. OR was rule d out by getting serial cardiac enzymes. He was asymptomatic this morning. The patient does have ga llstone, but there is no evidence of any cholecystitis. No evidence of any choledocholithiasis. The patient is at high risk for any surgical intervention and at this point, there is no indication for any surgery, so we will go ahead and discharge him to go home. If he needs any gallbladder surgery i n the future, we will consider that, but otherwise at this point no need for any further intervention . Details were discussed with him and his . There is a possibility that his abdominal pain comp laints could be due to some gastritis type of symptoms and he is taking famotidine at bedtime. We wi ll add pantoprazole 40 mg daily in the morning and prescription was sent to pharmacy. I will see him at office in 1 week for followup. Final Diagnoses: 1.Acute gastritis, without hemorrhage. 2.Gastroesophageal reflux disease. 3.Anemia, unspecified. 4.Chronic kidney disease, stage 3. 5.Gallstone without choledocholithiasis, without cholecystitis. 6.Chronic systolic congestive heart failure. 7.Prostate cancer. 8.Chronic obstructive pulmonary disease. 9.Depression. 10.Hypertension. ANA/MODL Voice ID: [id number]
== END 2018-11-21 10:25 | disposition home or self-care (01) ==
LOC: ER 20:11 → ERHOLD 22:15 → 2ND 23:29
PROVIDERS: ADMIT Internal Medicine; ATTEND Internal Medicine
DX: K29.00 Acute gastritis without bleeding (principal); K21.9 Gastro-esophageal reflux disease without esophagitis; K80.80 Other cholelithiasis without obstruction; I13.0 Hypertensive heart and chronic kidney disease with heart failure and stage 1 through stage 4 chronic kidney disease, or unspecified chronic kidney disease; I50.22 Chronic systolic (congestive) heart failure; N18.3 Chronic kidney disease, stage 3 (moderate); D63.1 Anemia in chronic kidney disease; J44.9 Chronic obstructive pulmonary disease, unspecified; F32.9 Major depressive disorder, single episode, unspecified; I25.10 Atherosclerotic heart disease of native coronary artery without angina pectoris; I25.2 Old myocardial infarction; I45.10 Unspecified right bundle-branch block; Z79.82 Long term (current) use of aspirin; Z79.899 Other long term (current) drug therapy; Z95.810 Presence of automatic (implantable) cardiac defibrillator; Z95.5 Presence of coronary angioplasty implant and graft; Z85.46 Personal history of malignant neoplasm of prostate; Z90.79 Acquired absence of other genital organ(s)
CPT/HCPCS: 96361; 93005 ×2; 93306; 85025 ×2; 80048 ×2; 36415; 83735; 85610; 80076; 81003; 84484 ×3; 83690; 83880; 71045; 76705; 96375; 96372; 96374; 99285; J1650; J2543 ×2; J7030; G0378 ×2

== ENCOUNTER 2019-04-13 13:56 | Emergency (ER) | payer OTHER, MEDICARE ==
[2019-04-13] MEDS ORDERED: DERMABOND SKIN ADHESIVE TOP ONE ×3 (14:21→16:17)
[2019-04-13] MEDS ORDERED: TETANUS & DIPHTHERIA TOX,ADULT 0.5 ML VIAL ONE (15:18)
--- NOTE | 2019-04-13 16:55 | EDPHYS ---
Physician Documentation [facility] Name: Jakob Romero Age: 84 yrs Sex: Male : 1935 Arrival Date: 04/13/2019 Time: 14:06 Bed 14 Private MD: ED Physician Gabriel Guzman HPI: 04/13 14:17 This 84 yrs old Male presents to ER via EMS with complaints of Fall Injury, pm1 Skin Tear(s). 14:17 Details of fall: The patient fell from an upright position, while standing. Onset: The pm1 symptoms/episode began/occurred just prior to arrival. Associated injuries: The patient sustained left arm. The patient has not recently seen a physician, the patient's primary care provider is Dr. Cueto. Patient was standing, leaning against a wall talking to friends when he pivoted to turn, pivoting caused pain to his bilateral ankles which caused him to fall. He slid down the wall behind him, causing skin tears to his left arm. Patient's pain to his ankles resolved after falling and he does not have any complaints of pain. No headache, head injury, LOC, neck pain or any chest pain equivalents present. Historical: - Allergies: 14:09 No Known Allergies; ss 14:10 No Known Allergies; rb1 - Home Meds: 14:10 aspirin 81 mg Oral chew 1 tab once daily [Active]; Sprivia 18 mcg daily [Active]; rb1 Potassium Chloride Oral [Active]; isosorbide dinitrate 40 mg Oral TbER 1 tab once daily [Active]; furosemide 40 mg Oral tab 1 tab 2 times per day [Active]; metoprolol succinate 25 mg Oral Tb24 1 tab once daily [Active]; captopril 25 mg Oral tab [Active]; fluoxetine 20 mg Oral cap 1 cap once daily [Active]; - PMHx: 14:09 Angina; Depression; COPD; Hypertension; Myocardial infarction; Prostate Cancer; CAD; ss 14:10 Angina; CAD; COPD; Depression; Hypertension; Myocardial infarction; Prostate Cancer; rb1 - PSHx: 14:09 Pacer/Defib; Heart stents; Lung surg x 2; prostatectomy; ss 14:10 Pacer/Defib; Heart stents; Prostate removal; Lung surg x 2; rb1 - Immunization history:: Adult Immunizations up to date. - Social history:: Smoking status: Patient/guardian denies using tobacco, but has a distant history of tobacco abuse. - Ebola Screening: : Patient denies exposure to infectious person Patient denies travel to an Ebola-affected area in the 21 days before illness onset. ROS: 14:17 Constitutional: Negative for fever, chills, and weight loss, Eyes: Negative for injury, pm1 pain, redness, and discharge, ENT: Negative for injury, pain, and discharge, Neck: Negative for injury, pain, and swelling, Cardiovascular: Negative for chest pain, palpitations, and edema, Respiratory: Negative for shortness of breath, cough, wheezing, and pleuritic chest pain, Abdomen/GI: Negative for abdominal pain, nausea, vomiting, diarrhea, and constipation, Back: Negative for injury and pain, MS/Extremity: Negative for injury and deformity. 14:17 Neuro: Negative for headache, weakness, numbness, tingling, and seizure. 14:17 Skin: Positive for of the left arm, skin tears. Exam: 14:17 Constitutional: This is a well developed, well nourished patient who is awake, alert, pm1 and in no acute distress. Head/Face: Normocephalic, atraumatic. Eyes: Pupils equal round and reactive to light, extra-ocular motions intact. Lids and lashes normal. Conjunctiva and sclera are non-icteric and not injected. Cornea within normal limits. Periorbital areas with no swelling, redness, or edema. ENT: Nares patent. No nasal discharge, no septal abnormalities noted. Tympanic membranes are normal and external auditory canals are clear. Oropharynx with no redness, swelling, or masses, exudates, or evidence of obstruction, uvula midline. Mucous membranes moist. Neck: Trachea midline, no thyromegaly or masses palpated, and no cervical lymphadenopathy. Supple, full range of motion without nuchal rigidity, or vertebral point tenderness. No Meningismus. Chest/axilla: Normal chest wall appearance and motion. Nontender with no deformity. No lesions are appreciated. Cardiovascular: Regular rate and rhythm with a normal S1 and S2. No gallops, murmurs, or rubs. Normal PMI, no JVD. No pulse deficits. Respiratory: Lungs have equal breath sounds bilaterally, clear to auscultation and percussion. No rales, rhonchi or wheezes noted. No increased work of breathing, no retractions or nasal flaring. Abdomen/GI: Soft, non-tender, with normal bowel sounds. No distension or tympany. No guarding or rebound. No evidence of tenderness throughout. Back: No spinal tenderness. No costovertebral tenderness. Full range of motion. 14:17 Musculoskeletal/extremity: ROM: intact in all extremities, full active range of motion, in the left arm, full passive range of motion, in the left arm. 14:17 Skin: Appearance: normal except for affected area, injury, skin tears to left upper and lower arm. 14:17 Neuro: Orientation: is normal, Motor: is normal, moves all fours. Vital Signs: 14:07 BP 94 / 59; Pulse 76; Resp 17; Temp 98.5(O); Pulse Ox 99% on R/A; Weight 86.18 kg; ss Height 6 ft. 1 in. (185.42 cm); Pain 0/10; 15:00 BP 99 / 62; Pulse 68; Resp 16; Pulse Ox 98% on R/A; Pain 0/10; rb1 16:00 BP 108 / 60; Pulse 70; Resp 18; Pulse Ox 95% on R/A; Pain 0/10; rb1 17:00 BP 102 / 83; Pulse 63; Resp 19; Pulse Ox 100% on R/A; Pain 0/10; rb1 14:07 Body Mass Index 25.07 (86.18 kg, 185.42 cm) ss Laceration: 16:50 Wound Repair of 16cm ( 6.3in ) subcutaneous laceration to left arm. skin tear. Distal pm1 neuro/vascular/tendon intact. Wound prep: Extensive cleansing with hibiclenz by az, Wound irrigation with saline by az, Wound explored extensively, Copious irrigation. Skin closed with 1-0 Adhesive skin closure using Dermabond. Dressed with 4x4's, Kerlix. Patient tolerated well. MDM: 14:07 Patient medically screened. pm1 16:50 Data reviewed: vital signs. Data interpreted: Pulse oximetry: on room air is 95 %. pm1 Interpretation: normal. Counseling: I had a detailed discussion with the patient and/or guardian regarding: the historical points, exam findings, and any diagnostic results supporting the discharge/admit diagnosis, the need for outpatient follow up, to return to the emergency department if symptoms worsen or persist or if there are any questions or concerns that arise at home. Administered Medications: 15:21 Drug: Tetanus-Diphtheria Toxoid Adult 0.5 ml {[employer]: [employer]. Exp: rb1 05/02/2021. Lot #: [id number]. } Route: IM; Site: right deltoid; 15:40 Follow up: Response: No adverse reaction rb1 Disposition: 19:48 Co-signature as Attending Physician, Gabriel Guzman MD I agree with the assessment and nestor plan of care. Disposition: 04/13/19 16:53 Discharged to Home. Impression: Laceration without foreign body of left upper arm - skin tear, Laceration without foreign body of left forearm - skin tear. - Condition is Stable. - Discharge Instructions: Tissue Adhesive Wound Care. - Prescriptions for Keflex 500 mg Oral Capsule - take 1 capsule by ORAL route every 12 hours for 10 days; 20 capsule. - Medication Reconciliation Form, Thank You Letter, Antibiotic Education, Prescription Opioid Use form. - Follow up: Emergency Department; When: As needed; Reason: Worsening of condition. Follow up: Private Physician; When: 2 - 3 days; Reason: Recheck today's complaints, Continuance of care, Re-evaluation by your physician. - Problem is new. - Symptoms have improved. Signatures: Gabriel Guzman MD MD cha Smirch, Shelby RN RN ss Samira Sosa, RN RN rb1 Augusto Lepe, BATSHEVA SUPER[employer] pm1 Corrections: (The following items were deleted from the chart) 17:46 16:53 04/13/2019 16:53 Discharged to Home. Impression: Laceration without foreign body rb1 of left upper arm - skin tear; Laceration without foreign body of left forearm - skin tear. Condition is Stable. Forms are Medication Reconciliation Form, Thank You Letter, Antibiotic Education, Prescription Opioid Use. Follow up: Emergency Department; When: As needed; Reason: Worsening of condition. Follow up: Private Physician; When: 2 - 3 days; Reason: Recheck today's complaints, Continuance of care, Re-evaluation by your physician. Problem is new. Symptoms have improved. pm1
--- NOTE | 2019-04-13 16:55 | ER ---
Nurse's Notes [facility] Name: Jakob Romero Age: 84 yrs Sex: Male : 1935 Arrival Date: 04/13/2019 Time: 14:06 Bed 14 Private MD: Diagnosis: Laceration without foreign body of left upper arm-skin tear;Laceration without foreign body of left forearm-skin tear Presentation: 04/13 14:09 Presenting complaint: Patient states: "I turned around and my ankles and my knees hurt ss all of a sudden and I fell. After I fell they didn't hurt anymore." Pt reports that his only injury is a skin tear to his L FA. Dressing placed to L FA by EMS. Transition of care: [facility]. Onset of symptoms was April 13, 2019. Risk Assessment: Do you want to hurt yourself or someone else? Patient reports no desire to harm self or others. Initial Sepsis Screen: Does the patient meet any 2 criteria? No. Patient's initial sepsis screen is negative. Does the patient have a suspected source of infection? No. Patient's initial sepsis screen is negative. Care prior to arrival: dressing placed to L FA. 14:09 Method Of Arrival: EMS: [facility] ss 14:09 Acuity: NETTE 3 ss Historical: - Allergies: 14:09 No Known Allergies; ss 14:10 No Known Allergies; rb1 - Home Meds: 14:10 aspirin 81 mg Oral chew 1 tab once daily [Active]; Sprivia 18 mcg daily [Active]; rb1 Potassium Chloride Oral [Active]; isosorbide dinitrate 40 mg Oral TbER 1 tab once daily [Active]; furosemide 40 mg Oral tab 1 tab 2 times per day [Active]; metoprolol succinate 25 mg Oral Tb24 1 tab once daily [Active]; captopril 25 mg Oral tab [Active]; fluoxetine 20 mg Oral cap 1 cap once daily [Active]; - PMHx: 14:09 Angina; Depression; COPD; Hypertension; Myocardial infarction; Prostate Cancer; CAD; ss 14:10 Angina; CAD; COPD; Depression; Hypertension; Myocardial infarction; Prostate Cancer; rb1 - PSHx: 14:09 Pacer/Defib; Heart stents; Lung surg x 2; prostatectomy; ss 14:10 Pacer/Defib; Heart stents; Prostate removal; Lung surg x 2; rb1 - Immunization history:: Adult Immunizations up to date. - Social history:: Smoking status: Patient/guardian denies using tobacco, but has a distant history of tobacco abuse. - Ebola Screening: : Patient denies exposure to infectious person Patient denies travel to an Ebola-affected area in the 21 days before illness onset. Screenin:10 Abuse screen: Denies threats or abuse. Nutritional screening: No deficits noted. rb1 Tuberculosis screening: No symptoms or risk factors identified. 14:10 Fall Risk Fall in past 12 months (25 points). Secondary diagnosis (15 points) impaired rb1 mobility, No IV (0 pts). Ambulatory Aid- None/Bed Rest/Nurse Assist (0 pts). Gait- Impaired (20 pts.). Mental Status- Oriented to own ability (0 pts). Total Harden Fall Scale indicates High Risk Score (45 or more points). Fall prevention measures have been instituted. Side Rails Up X 2 Placed Close to Nursing Station 1:1 Attendant Assigned Frequent Obs/Assessments Occuring Family Present and informed to notify staff if the need to leave the bedside As available patient and family educated on Fall Prevention Program and Strategies. Assessment: 14:10 General: Appears in no apparent distress. comfortable, Behavior is calm, cooperative. rb1 Pain: Denies pain. Neuro: Level of Consciousness is awake, alert, obeys commands, Oriented to person, place, time, situation. Cardiovascular: Capillary refill < 3 seconds is brisk in bilateral fingers. Cardiovascular: Denies chest pain, lightheadedness. Respiratory: Airway is patent Respiratory effort is even, unlabored, Respiratory pattern is regular, symmetrical, Denies shortness of breath. GI: No signs and/or symptoms were reported involving the gastrointestinal system. : No signs and/or symptoms were reported regarding the genitourinary system. Derm: skin tear noted to the left forearm. Musculoskeletal: Range of motion: intact in all extremities. 15:00 Reassessment: Patient appears in no apparent distress at this time. No changes from rb1 previously documented assessment. Family at the bedside. 15:55 Reassessment: Patient appears in no apparent distress at this time. Patient and/or rb1 family updated on plan of care and expected duration. Pain level reassessed. Patient is alert, oriented x 3, equal unlabored respirations, skin warm/dry/pink. Patient denies pain at this time. 16:52 Reassessment: Patient appears in no apparent distress at this time. No changes from rb1 previously documented assessment. 17:30 Reassessment: Patient appears in no apparent distress at this time. Patient and/or rb1 family updated on plan of care and expected duration. Pain level reassessed. Patient is alert, oriented x 3, equal unlabored respirations, skin warm/dry/pink. Patient denies pain at this time. Vital Signs: 14:07 BP 94 / 59; Pulse 76; Resp 17; Temp 98.5(O); Pulse Ox 99% on R/A; Weight 86.18 kg; ss Height 6 ft. 1 in. (185.42 cm); Pain 0/10; 15:00 BP 99 / 62; Pulse 68; Resp 16; Pulse Ox 98% on R/A; Pain 0/10; rb1 16:00 BP 108 / 60; Pulse 70; Resp 18; Pulse Ox 95% on R/A; Pain 0/10; rb1 17:00 BP 102 / 83; Pulse 63; Resp 19; Pulse Ox 100% on R/A; Pain 0/10; rb1 14:07 Body Mass Index 25.07 (86.18 kg, 185.42 cm) ED Course: 14:06 Patient arrived in ED. ss 14:07 Samira Sosa, NIYA is Primary Nurse. rb1 14:07 Augusto Lepe NP is PHCP. pm1 14:07 Gabriel Guzman MD is Attending Physician. pm1 14:07 Arm band placed on right wrist. ss 14:10 Patient has correct armband on for positive identification. Bed in low position. Call rb1 light in reach. Side rails up X2. Pulse ox on. NIBP on. 14:13 Triage completed. ss 17:30 No provider procedures requiring assistance completed. Patient did not have IV access rb1 during this emergency room visit. Administered Medications: 15:21 Drug: Tetanus-Diphtheria Toxoid Adult 0.5 ml {[employer]ic: Já Entendi. Exp: rb1 05/02/2021. Lot #: [id number]. } Route: IM; Site: right deltoid; 15:40 Follow up: Response: No adverse reaction rb1 Outcome: 16:53 Discharge ordered by . pm1 17:30 Discharged to home via wheelchair, with family. rb1 17:30 Condition: stable 17:30 Discharge instructions given to patient, Instructed on discharge instructions, follow up and referral plans. medication usage, Demonstrated understanding of instructions, follow-up care, medications, Prescriptions given X 1. 17:30 Patient left the ED. rb1 Signatures: Patricia Dempsey RN RN ss Samira Sosa RN RN rb1 Augusto Lepe, PHLEBOTOMY DIRECTOR PHLEBOTOMY DIRECTOR pm1 Corrections: (The following items were deleted from the chart) 17:45 17:45 No provider procedures requiring assistance completed. rb1 rb1 17:45 17:45 Patient did not have IV access during this emergency room visit. rb1 rb1 17:47 17:46 Patient left the ED. rb1 rb1
[2019-04-13 17:52] VITALS: TEMP 98.5
[2019-04-13 17:56] VITALS: BP 102/83; O2SAT 100
== END 2019-04-13 17:46 | disposition home or self-care (01) ==
LOC: ER 13:56
PROC: 0JQH0ZZ Repair Left Lower Arm Subcutaneous Tissue and Fascia, Open Approach (ICD-10-PCS; principal; 2019-04-13)
PROC: 0JQF0ZZ Repair Left Upper Arm Subcutaneous Tissue and Fascia, Open Approach (ICD-10-PCS; 2019-04-13)
DX: S51.812A Laceration without foreign body of left forearm, initial encounter (principal); W19.XXXA Unspecified fall, initial encounter; Y93.89 Activity, other specified; Y92.9 Unspecified place or not applicable; Z23 Encounter for immunization; Z79.82 Long term (current) use of aspirin; Z85.46 Personal history of malignant neoplasm of prostate; Z95.810 Presence of automatic (implantable) cardiac defibrillator; Z95.818 Presence of other cardiac implants and grafts; F32.9 Major depressive disorder, single episode, unspecified; I10 Essential (primary) hypertension; J44.9 Chronic obstructive pulmonary disease, unspecified; I25.2 Old myocardial infarction
CPT/HCPCS: 90471; 90714; 99284

== ENCOUNTER 2019-06-22 14:44 | Observation (INO) | payer OTHER, MEDICARE ==
--- NOTE | 2019-06-22 15:31 | RAD REPORT ---
EXAM DESCRIPTION: Branden Single View06/22/2019 3:02 pm CLINICAL HISTORY: Defibrillator discharge COMPARISON: May 2019 FINDINGS: 8 millimeter nodular opacity overlies the left lung base Right lung appears clear. The heart is mildly to moderately enlarged. Pacemaker leads are in place. IMPRESSION: 8 millimeter nodular opacity overlies the left lung base which may represent a pulmonary nodule or nipple shadow. It is recommended that the patient have frontal and oblique views of the ch est with a nipple marker for further evaluation
[2019-06-22 15:35] LABS: Absolute Lymphocytes (CBC) 1.2 K/uL (0.7-4.9); Basophils % 0.6 % (0-1.3); Hematocrit 37.7 % (39.6-49.0); Lymphocytes % 15.6 % (15.3-44.8); MPV 8.2 fL (7.6-11.3); RBC Red Blood Cell Count 4.13 M/uL (4.33-5.43)
[2019-06-22 15:40] LABS: Protime INR 1.06
[2019-06-22 15:51] LABS: ALT/SGPT 15 U/L (12-78); AST/SGOT 16 U/L (15-37); Albumin 3.4 g/dL (3.4-5.0); Alkaline Phosphatase 71 U/L (45-117); BUN Blood Urea Nitrogen 35 mg/dL (7-18); Bicarbonate 33 mmol/L (21-32); Bilirubin Direct 0.2 mg/dL (0-0.2); Bilirubin Total 0.5 mg/dL (0.2-1.0); Glucose Level 101 mg/dL (74-106); Magnesium 2.4 mg/dL (1.8-2.4); NT PRO-BNP 3552 pg/mL (<450); Potassium 3.5 mmol/L (3.5-5.1); Sodium Level 141 mmol/L (136-145); Troponin (Emerg Dept Use Only) < 0.02 ng/mL (0.0-0.045)
--- NOTE | 2019-06-22 16:30 | EDPHYS ---
Physician Documentation [facility] Name: Jakob Romero Age: 84 yrs Sex: Male : 1935 Arrival Date: 06/22/2019 Time: 14:47 Bed 3 Private MD: ED Physician El Witt HPI: 06/21 14:49 This 84 yrs old Male presents to ER via EMS with complaints of defibrillator pm1 problem. 14:49 Patient presents to the ER with complaint of 2 defibrillator discharges 1 hour prior to pm1 arrival. Patient was walking to his bed and he felt the defibrillator fire off. Prior to event, patient did not have any chest pain, shortness of breath, dizziness, headache, syncope or any other chest pain equivalents. The patient does not have any associated symptoms after the defibrillator discharged. Historical: - Allergies: 15:06 No Known Allergies; bp - PMHx: 15:06 Angina; CAD; COPD; Depression; Hypertension; Myocardial infarction; Prostate Cancer; bp - Immunization history:: Adult Immunizations up to date. - Social history:: Smoking status: Patient denies any tobacco usage or history of. ROS: 15:09 Constitutional: Negative for fever, chills, and weight loss, Eyes: Negative for injury, pm1 pain, redness, and discharge, ENT: Negative for injury, pain, and discharge, Neck: Negative for injury, pain, and swelling, Cardiovascular: Negative for chest pain, palpitations, and edema. 15:09 Respiratory: Negative for shortness of breath, cough, wheezing, and pleuritic chest pain, Abdomen/GI: Negative for abdominal pain, nausea, vomiting, diarrhea, and constipation, Back: Negative for injury and pain, MS/Extremity: Negative for injury and deformity, Skin: Negative for injury, rash, and discoloration, Neuro: Negative for headache, weakness, numbness, tingling, and seizure. Exam: 15:09 Constitutional: This is a well developed, well nourished patient who is awake, alert, pm1 and in no acute distress. Head/Face: Normocephalic, atraumatic. Chest/axilla: Normal chest wall appearance and motion. Nontender with no deformity. No lesions are appreciated. Cardiovascular: Regular rate and rhythm with a normal S1 and S2. No gallops, murmurs, or rubs. Normal PMI, no JVD. No pulse deficits. Respiratory: Lungs have equal breath sounds bilaterally, clear to auscultation and percussion. No rales, rhonchi or wheezes noted. No increased work of breathing, no retractions or nasal flaring. Abdomen/GI: Soft, non-tender, with normal bowel sounds. No distension or tympany. No guarding or rebound. No evidence of tenderness throughout. Back: No spinal tenderness. No costovertebral tenderness. Full range of motion. Skin: Warm, dry with normal turgor. Normal color with no rashes, no lesions, and no evidence of cellulitis. MS/ Extremity: Pulses equal, no cyanosis. Neurovascular intact. Full, normal range of motion. 15:09 Neuro: Orientation: is normal, Mentation: is normal, Motor: is normal, moves all fours. Vital Signs: 14:50 BP 91 / 74; Pulse 59; Resp 17; Temp 97.6; Pulse Ox 95% ; Weight 86.18 kg; Height 6 ft. bp 1 in. (185.42 cm); 16:05 BP 93 / 55; Pulse 64; Resp 17; Pulse Ox 100% ; bp 17:00 BP 110 / 67; Pulse 60; Resp 17; Pulse Ox 100% on R/A; rb1 18:00 BP 105 / 62; Pulse 60; Resp 13; Pulse Ox 96% on R/A; Pain 0/10; rb1 19:19 BP 110 / 81; Pulse 62; Resp 17; Temp 97.7(O); Pulse Ox 96% on R/A; lp1 20:30 BP 105 / 75; Pulse 60; Resp 16; Pulse Ox 99% on R/A; rr5 14:50 Body Mass Index 25.07 (86.18 kg, 185.42 cm) bp MDM: 14:48 Patient medically screened. pm1 16:25 Data reviewed: vital signs. pm1 16:25 Counseling: I had a detailed discussion with the patient and/or guardian regarding: the pm1 historical points, exam findings, and any diagnostic results supporting the discharge/admit diagnosis, lab results, radiology results, the need for further work-up and treatment in the hospital. 16:25 ED course: Patient's present at bedside and reports that the patient has not been pm1 drinking enough water today and that he has had some complaints of dizziness to her earlier in the day. 17:08 ED course: Discussed case with Diandra from [facility] after interrogation completed. He pm1 called to inform us that no events since May 2019. There were no shocks delivered today. 17:08 ED course: Diandra contact information: [phone]. pm1 17:19 Physician consultation: Dr. Witt discussed the case with Dr. Tolliver. Would like pm1 interrogation of defibrillator and consult with cardiology. 06/21 14:49 Order name: Basic Metabolic Panel; Complete Time: 15:56 pm1 06/21 14:49 Order name: CBC with Diff; Complete Time: 15:44 pm1 06/21 14:49 Order name: LFT's; Complete Time: 15:56 pm1 06/21 14:49 Order name: Magnesium; Complete Time: 15:56 pm1 06/21 14:49 Order name: NT PRO-BNP; Complete Time: 15:56 pm1 06/21 14:49 Order name: PT-INR; Complete Time: 15:44 pm1 06/21 14:49 Order name: Troponin (emerg Dept Use Only); Complete Time: 15:56 pm1 06/21 14:49 Order name: XRAY Chest (1 view); Complete Time: 15:44 pm1 06/21 14:49 Order name: EKG; Complete Time: 14:50 pm1 06/21 14:49 Order name: Cardiac monitoring; Complete Time: 15:09 pm1 06/21 14:49 Order name: EKG - Nurse/Tech; Complete Time: 15:21 pm1 06/21 15:53 Order name: Chest W Obliques; Complete Time: 17:18 EDMS 06/21 14:49 Order name: IV Saline Lock; Complete Time: 15:22 pm1 06/21 14:49 Order name: Labs collected and sent; Complete Time: 15:22 pm1 06/21 14:49 Order name: O2 Per Protocol; Complete Time: 15:08 pm1 06/21 14:49 Order name: O2 Sat Monitoring; Complete Time: 15:08 pm1 Administered Medications: 18:32 Not Given (Physician Discretion): NS 0.9% 500 ml IV at bolus once bp Disposition: 06/22 10:09 Co-signature as Attending Physician, El Witt MD. rn Disposition: 06/22/19 16:28 Hospitalization ordered by Leonard Cueto for Inpatient Admission. Preliminary diagnosis are Encounter for adjustment and management of implanted device - Defibrillator discharged, Dehydration. - Bed requested for Telemetry/MedSurg (Inpatient). - Status is Inpatient Admission. rr5 - Condition is Stable. - Problem is new. - Symptoms have improved. Signatures: Dispatcher [employer] EDNY El Witt MD MD rn Augusto Lepe, SHEET METAL FABRICATOR SHEET METAL FABRICATOR pm1 Sunny Castellanos, RN RN Ashlyn Andres Raymond, RN RN rr5 Corrections: (The following items were deleted from the chart) 06/21 15:54 15:46 Chest Single View+RAD.RAD.BRZ ordered. EDNY EDNY 17:29 16:28 Hospitalization Ordered by Leonard Cueto MD for Observation. Preliminary diagnosis pm1 is Encounter for adjustment and management of implanted device - Defibrillator discharged; Dehydration. Bed requested for Telemetry/MedSurg (observation). Status is Observation. Condition is Stable. Problem is new. Symptoms have improved. pm1 17:55 14:49 The patient or guardian reports chest pain that is located primarily in the pm1 pm1 18:02 17:29 06/22/2019 16:28 Hospitalization Ordered by Leonard Cueto MD for Inpatient eb Admission. Preliminary diagnosis is Encounter for adjustment and management of implanted device - Defibrillator discharged; Dehydration. Bed requested for Telemetry/MedSurg (Inpatient). Status is Inpatient Admission. Condition is Stable. Problem is new. Symptoms have improved. pm1 20:34 18:02 06/22/2019 16:28 Hospitalization Ordered by Leonard Cueto MD for Inpatient rr5 Admission. Preliminary diagnosis is Encounter for adjustment and management of implanted device - Defibrillator discharged; Dehydration. Bed requested for Telemetry/MedSurg (Inpatient). Status is Inpatient Admission. Condition is Stable. Problem is new. Symptoms have improved. eb
--- NOTE | 2019-06-22 16:30 | ER ---
Nurse's Notes [facility] Name: Jakob Romero Age: 84 yrs Sex: Male : 1935 Arrival Date: 06/22/2019 Time: 14:47 Bed 3 Private MD: Diagnosis: Encounter for adjustment and management of implanted device-Defibrillator discharged;Dehydration Presentation: 06/21 14:50 Chief complaint: EMS states: DEFIB FIRED TWICE WHILE WALKING. Coronavirus screen: The bp patient has NOT traveled to a country currently being monitored by the [facility] within the last 14 days. Ebola Screen: No symptoms or risks identified at this time. Initial Sepsis Screen: Does the patient meet any 2 criteria? No. Patient's initial sepsis screen is negative. Does the patient have a suspected source of infection? No. Patient's initial sepsis screen is negative. Risk Assessment: Do you want to hurt yourself or someone else? Patient reports no desire to harm self or others. Note PT STATES ASYMPTOMATIC, DENIES ACUTE MEDICAL NEED. 14:50 Method Of Arrival: EMS: [facility] bp 14:50 Acuity: NETTE 3 bp Triage Assessment: 15:06 General: Appears in no apparent distress. comfortable, Behavior is calm, cooperative, bp appropriate for age. Pain: Denies pain. EENT: No deficits noted. Neuro: No deficits noted. Cardiovascular: Rhythm is A-V sequential pacer. Respiratory: No deficits noted. GI: No signs and/or symptoms were reported involving the gastrointestinal system. : No signs and/or symptoms were reported regarding the genitourinary system. Derm: No deficits noted. Musculoskeletal: No deficits noted. Historical: - Allergies: 15:06 No Known Allergies; bp - PMHx: 15:06 Angina; CAD; COPD; Depression; Hypertension; Myocardial infarction; Prostate Cancer; bp - Immunization history:: Adult Immunizations up to date. - Social history:: Smoking status: Patient denies any tobacco usage or history of. Screenin:00 Abuse screen: Denies threats or abuse. Denies injuries from another. Nutritional bp screening: No deficits noted. Tuberculosis screening: No symptoms or risk factors identified. Fall Risk None identified. Assessment: 15:00 General: SEE TRIAGE NOTE. bp 16:18 Reassessment: PIV BLOWN. PROVIDER AWARE AND FURTHER IV INTERVENTION HELD AT THIS TIME. bp 17:00 Reassessment: Patient appears in no apparent distress at this time. Patient and/or rb1 family updated on plan of care and expected duration. Pain level reassessed. Patient is alert, oriented x 3, equal unlabored respirations, skin warm/dry/pink. Patient denies pain at this time. 18:00 Reassessment: Patient appears in no apparent distress at this time. No changes from rb1 previously documented assessment. Family at the bedside. 18:20 Reassessment:. bp 19:15 General: Appears in no apparent distress. comfortable, Behavior is calm, cooperative, rr5 appropriate for age, awaiting for transfer to room.. 19:15 Pain: Denies pain. Neuro: Level of Consciousness is awake, alert, obeys commands, rr5 Oriented to person, place, time, situation. Cardiovascular: Reports has defibrillator Capillary refill < 3 seconds Patient's skin is warm and dry. Respiratory: Airway is patent Respiratory effort is even, unlabored, Respiratory pattern is regular, symmetrical. GI: No signs and/or symptoms were reported involving the gastrointestinal system. : No signs and/or symptoms were reported regarding the genitourinary system. EENT: No signs and/or symptoms were reported regarding the EENT system. Derm: Skin is intact, is healthy with good turgor, Skin temperature is warm. Musculoskeletal: Circulation, motion, and sensation intact. Capillary refill < 3 seconds. 20:18 Reassessment: Patient appears in no apparent distress at this time. No changes from rr5 previously documented assessment. Patient is alert, oriented x 3, equal unlabored respirations, skin warm/dry/pink. for transfer to room 412 awake alert no complaints made. Vital Signs: 14:50 BP 91 / 74; Pulse 59; Resp 17; Temp 97.6; Pulse Ox 95% ; Weight 86.18 kg; Height 6 ft. bp 1 in. (185.42 cm); 16:05 BP 93 / 55; Pulse 64; Resp 17; Pulse Ox 100% ; bp 17:00 BP 110 / 67; Pulse 60; Resp 17; Pulse Ox 100% on R/A; rb1 18:00 BP 105 / 62; Pulse 60; Resp 13; Pulse Ox 96% on R/A; Pain 0/10; rb1 19:19 BP 110 / 81; Pulse 62; Resp 17; Temp 97.7(O); Pulse Ox 96% on R/A; lp1 20:30 BP 105 / 75; Pulse 60; Resp 16; Pulse Ox 99% on R/A; rr5 14:50 Body Mass Index 25.07 (86.18 kg, 185.42 cm) bp ED Course: 14:47 Patient arrived in ED. aa5 14:48 Augusto Lepe NP is PHCP. pm1 14:48 El Witt MD is Attending Physician. pm1 15:00 Patient has correct armband on for positive identification. Bed in low position. Call bp light in reach. Side rails up X2. Adult w/ patient. 15:01 XRAY Chest (1 view) In Process Unspecified. EDMS 15:03 Sunny Castellanos, RN is Primary Nurse. bp 15:05 Triage completed. bp 15:06 Arm band placed on. bp 16:26 Chest W Obliques In Process Unspecified. EDMS 16:28 Leonard Cueto MD is Hospitalizing Provider. pm1 17:18 Inserted saline lock: 22 gauge in right antecubital area, using aseptic technique. tw2 19:54 No provider procedures requiring assistance completed. Patient admitted, IV remains in rr5 place. intact, No redness/swelling at site. Administered Medications: 18:32 Not Given (Physician Discretion): NS 0.9% 500 ml IV at bolus once bp Outcome: 16:28 Decision to Hospitalize by Provider. pm1 19:54 Admitted to Tele accompanied by [facility], via stretcher, room 412, with chart, Report rr5 called [address] [facility] 19:54 Condition: stable 19:54 Instructed on the need for admit. 20:34 Patient left the ED. rr5 Signatures: Dispatcher [employer] EDMS Niecy Wong, RN RN aa5 Brittny Romano, RN RN lp1 Samira Sosa, RN NIYA rb1 Augusto Lepe NP BOX TOE CEMENTER pm1 Bertha Galeas RN RN tw2 Sunny Castellanos, Pasha Ozuan RN, RN RN rr5 Corrections: (The following items were deleted from the chart) 19:20 19:16 Temp 97.7F Oral; lp1 lp1
--- NOTE | 2019-06-22 17:12 | RAD REPORT ---
EXAM DESCRIPTION: Branden Vines Renan06/22/2019 4:23 pm CLINICAL HISTORY: Pulmonary nodule COMPARISON: June 21 x-ray FINDINGS: The nodular opacity overlying the left lung base is not clearly shown to represent a nippl e shadow and may represent a pulmonary nodule. It is recommended that the patient have a followup PA and lateral chest series in 3 months for re-justine luation
[2019-06-22 21:07] VITALS: BMI 24.7
[2019-06-23 05:55] LABS: Absolute Lymphocytes (CBC) 1.4 K/uL (0.7-4.9); Basophils % 1.1 % (0-1.3); Hematocrit 35.2 % (39.6-49.0); Lymphocytes % 20.4 % (15.3-44.8); MPV 8.1 fL (7.6-11.3); RBC Red Blood Cell Count 3.87 M/uL (4.33-5.43)
[2019-06-23 06:13] LABS: Potassium 3.3 mmol/L (3.5-5.1)
--- NOTE | 2019-06-23 06:28 | EKG ---
Test Date: 2019-06-22 Test Time: 14:48:41 Decoration Checker: [place] MEASUREMENT RESULTS: Intervals: Rate: 60 MA: 162 QRSD: 114 QT: 484 QTc: 484 [place]: P: 80 MA: 162 QRS: 122 T: 60 INTERPRETIVE STATEMENTS: Atrial-sensed ventricular-paced rhythm Compared to ECG 11/21/2018 07:58:04 Atrial premature complex(es) no longer present Electronically Signed On 06-23-19 06:28:12 CDT by Oskar Saha
[2019-06-23 07:48] LABS: Blood Morphology Comment NOT SEEN (NOT SEEN); Platelet Estimate ADEQ
[2019-06-23 08:25] VITALS: O2SAT 2
[2019-06-23] MEDS ORDERED: ASPIRIN EC 81 MG TAB PO SCH (09:00)
[2019-06-23 14:06] VITALS: BP 94/55; TEMP 97.8
--- NOTE | 2019-06-23 16:56 | CON ---
History Of Present Illness: Mr. Romero is 84-year-old, and he has a history of severe heart disease , ejection fraction close to 20%. He has a biventricular pacing defibrillator, chronic heart failure . He came to the hospital because he felt his chest jumped a few times, it was 2 spells just 5 minut es apart with while he was standing and walking. He said it was not painful. He does not have much of a memory, but his remembers that he was defibrillated once by his defibrillator, it was extre kaci painful for him this time. He did not mention pain. He was startled and decided to come to the hospital. About a year ago, we discovered he was having frequent runs of ventricular tachycardia. His defibrillator was paced terminated then and we decided to start amiodarone. He has done well wit h amiodarone since then. His defibrillator check yesterday shows no defibrillation, no episodes of v entricular tachycardia, or atrial fibrillation, or anything untoward. In fact during the spells, he was in sinus rhythm, atrial sensed ventricular paced. His studies since he has been here indicate al l of his troponins are normal. His creatinine is 1.49, it was 1.61 yesterday. N-terminal proBNP is 3500, that was close to 9000 a year ago when he was in distress. Outpatient Medications: Fluoxetine, aspirin, metoprolol 25 mg once a day, furosemide, multivitamin, amiodarone 200 mg b.i.d., Pepcid 20 mg per day, melatonin, and sacubitril and valsartan , he say s he takes it once a day, although that should be twice daily. Physical Examination: MEASUREMENTS: He is 6 feet 1 inch, 190 pounds. General: He has very poor memory, mild confusion. He is alert, oriented, pleasant. Lungs: Do not reveal crackles. Heart: Significant for laterally displaced diffuse apical impulse. Rhythm is regular. Abdomen: Soft. Extremities: No significant edema. Distal pulses diminished. EKG shows atrial sensed ventricular paced rhythm. QRS is extremely wide. The pacemaker defibrillato r interrogation indicates that biventricular pacing is normal. The threshold is 1 volt. Impression: The patient is feeling his chest jumping was not a defibrillator discharge, but intermit tent stimulation of the phrenic nerve causing a sudden jump. Since he has only had 2 of these in the last several years, I would not think we really need to reprogram the defibrillator, not even 100% s ure that is what it is, but it was not an arrhythmia and not myocardial infarction and at this point, Mr. Romero could be discharged home. PAULO/RADHA Voice ID: [id number] Report ID: [id number]
--- NOTE | 2019-06-24 07:31 | EKG ---
Test Date: 2019-06-23 Test Time: 08:10:28 [employer] Etch Operator: TAL MEASUREMENT RESULTS: Intervals: Rate: 60 WY: 128 QRSD: 218 QT: 562 QTc: 562 [place]: P: 94 WY: 128 QRS: -87 T: 96 INTERPRETIVE STATEMENTS: AV sequential or dual chamber electronic pacemaker Compared to ECG 06/22/2019 14:48:41 Ventricular-paced complex(es) or rhythm no longer present Atrial-sensed ventricular-paced complex(es) or rhythm no longer present Electronically Signed On 06-24-19 07:30:17 CDT by Oskar Saha
--- NOTE | 2019-06-25 04:24 | SS ---
Date of Discharge: 06/23/2019 Chief Complaint: Defibrillator going off. History Of Present Illness: 84-year-old pleasant male patient who has AICD in place, was doing fine in his normal usual state of health and was walking in his bedroom, was close to his bed and all of a sudden he felt 2 different jerks going through his entire body and he felt like he might lose his balance, so since he was close to the bed, he actually grabbed hold of mattress and then sat down. He did not lose consciousness, did not fall down. He came into emergency room after that and after he was evaluated in the ER, he was admitted to the hospital and Cardiology consultation has been requested from Dr. Saha. Allergies: NO KNOWN ALLERGIES. Medications: List reviewed. Review of Systems: Cardiovascular: As mentioned above. All other systems reviewed and negative. Past Medical History: COPD, hypertension, hyperlipidemia, chronic systolic congestive heart failure, gastroesophageal reflux disease, chronic kidney disease stage 3, prostate cancer, anemia, depression. Past Surgical History: Fracture surgery, prostatectomy. Family History: Father had MO. Mother , had diabetes. Brother , had pancreatic cancer and prostate cancer, heart disease. Social History: Prior history of smoking, not at present time. Use of alcohol , negative. Physical Examination: Vital Signs: Temperature 97.4, pulse 59, respiratory rate 18, blood pressure 96 /52, oxygen saturation 100%. Height 6 feet 1 inch, weight 190 pounds. The patient's blood pressure which is 94/52 is his baseline blood pressure. General: Awake, alert, oriented, not in distress. HEENT: Head atraumatic, normocephalic. Conjunctivae nonerythematous. Sclerae white. Mouth, no thrush or edema noted. Ears/Nose, no mass, lesion, discharge noted. Neck: Supple. No JVD, lymph nodes, bruit, thyromegaly noted. Lungs: Bilateral good equal air entry. Clear to auscultation. No rhonchi. No rales. Heart: Normal heart sounds, no murmur or gallop. Abdomen: Soft, bowel sounds normal. No guarding, rigidity, tenderness, mass, hepatosplenomegaly, distention, or bruit noted. Extremities: No leg edema. No calf tenderness. Skin: No rash, ulcer, cellulitis. Lymphatics: No lymph node enlargement in neck, supraclavicular, infraclavicular region. Neuro: No focal neurological deficit. Chest: Unremarkable. External Genitalia: Deferred. Rectal: Deferred. Laboratory Data: White count 7, hemoglobin 12, platelets 173 today. Yesterday , white count 7.9, hemoglobin 12.6, platelets 196. Today, sodium 143, potassium 3.3, chloride 104, bicarb 30, BUN 31, creatinine 1.49, glucose 104. Troponin less than 0.02 x3 showing nodular opacity overlying left lung base. EKG, paced rhythm. Hospital Course: After I saw patient, Dr. Saha from Cardiology evaluated a.m. and he did not suggest any further intervention and from Cardiology point of view, he released patient to go home. Medically, patient was stable for discharge and the patient normally sees Dr. Dubon on outpatient basis and he was advised to continue to follow up with iron miner blasting per instruction. The patient to follow up at my office also as per instructions. Final Diagnoses: 1. Chronic systolic congestive heart failure. 2. Chronic kidney disease stage 3. 3. Hypertension. 4. Hyperlipidemia. 5. Gastroesophageal reflux disease. 6. Prostate cancer. 7. Anemia due to chronic kidney disease. 8. Depression. ANA/MODL Voice ID: [id number] Report ID: [id number] MTDD
== END 2019-06-23 13:43 | disposition home or self-care (01) ==
LOC: ER 14:44 → 4TH 17:27 → INTOOBSV 17:27
PROVIDERS: ADMIT Internal Medicine; ATTEND Internal Medicine
DX: Z45.02 Encounter for adjustment and management of automatic implantable cardiac defibrillator (principal); G58.8 Other specified mononeuropathies; I13.0 Hypertensive heart and chronic kidney disease with heart failure and stage 1 through stage 4 chronic kidney disease, or unspecified chronic kidney disease; N18.3 Chronic kidney disease, stage 3 (moderate); I50.22 Chronic systolic (congestive) heart failure; D63.1 Anemia in chronic kidney disease; E86.0 Dehydration; E78.5 Hyperlipidemia, unspecified; K21.9 Gastro-esophageal reflux disease without esophagitis; J44.9 Chronic obstructive pulmonary disease, unspecified; F32.9 Major depressive disorder, single episode, unspecified; I25.2 Old myocardial infarction; I25.10 Atherosclerotic heart disease of native coronary artery without angina pectoris; Z79.82 Long term (current) use of aspirin; Z79.899 Other long term (current) drug therapy; Z87.891 Personal history of nicotine dependence; Z85.46 Personal history of malignant neoplasm of prostate
CPT/HCPCS: 93005 ×2; 85025 ×2; 80048 ×2; 36415; 83735; 85610; 80076; 84484 ×3; 83880; 71045; 71048; 99285; G0378 ×3

== ENCOUNTER 2019-07-01 11:15 | Inpatient (IN) | payer OTHER, MEDICARE ==
[2019-07-01] MEDS ORDERED: NA CHLORIDE 0.9% 500 ML ONE (12:05)
--- NOTE | 2019-07-01 12:13 | RAD REPORT ---
EXAM DESCRIPTION: RAD - Chest Single View - 07/01/2019 12:03 pm CLINICAL HISTORY: CONGESTION COMPARISON: Chest with oblique views June 21, AP chest June 21, two view chest May 28 TECHNIQUE: AP portable chest image was obtained 07/01/2019 12:03 pm . FINDINGS: Patient has chronic interstitial opacification. Interstitial opacification has increased f rom prior imaging. Cardiomegaly is present similar to slightly increased from comparison. Defibrillat or is in place. No pneumothorax or large pleural effusion. No focal consolidation. No acute bony abno rmality seen. No acute aortic findings suspected. IMPRESSION: Interstitial opacification has increased over baseline. Heart size also slightly increas ed. Findings suggest a mild CHF/ volume overload. A mild viral infiltrate would also be possible given th e clinical history.
[2019-07-01 12:24] LABS: Absolute Lymphocytes (CBC) 0.5 K/uL (0.7-4.9); Basophils % 0.3 % (0-1.3); Hematocrit 31.9 % (39.6-49.0); Lymphocytes % 4.7 % (15.3-44.8); MPV 8.4 fL (7.6-11.3); RBC Red Blood Cell Count 3.45 M/uL (4.33-5.43)
[2019-07-01 12:40] LABS: Albumin 3.6 g/dL (3.4-5.0); Bilirubin Direct 0.6 mg/dL (0-0.2); Bilirubin Total 1.8 mg/dL (0.2-1.0); Potassium 3.7 mmol/L (3.5-5.1); Protein, Total 7.4 g/dL (6.4-8.2)
[2019-07-01] MEDS ORDERED: ASPIRIN 81 MG CHEWABLE TABLET ONE (13:33)
[2019-07-01 13:36] LABS: Protime INR 1.35
--- NOTE | 2019-07-01 13:55 | ER ---
Nurse's Notes [facility] Name: Jakob Romero Age: 84 yrs Sex: Male : 1935 Arrival Date: 07/01/2019 Time: 11:17 Bed 2 Private MD: Diagnosis: Chest pain, unspecified Presentation: 06/30 11:22 Chief complaint: Patient states: woke up this morning feeling dizzy and nauseated, iw vomited once and had mid abd pain, also had some difficulty breathing, gasping like. Coronavirus screen: The patient has NOT traveled to a country currently being monitored by the [facility] within the last 14 days. Proceed with normal triage procedures. The patient has NOT had contact with any known and/or suspected case of coronavirus. Proceed with normal triage procedures. Ebola Screen: Patient negative for fever greater than or equal to 101.5 degrees Fahrenheit, and additional compatible Ebola Virus Disease symptoms Patient denies exposure to infectious person. Patient denies travel to an Ebola-affected area in the 21 days before illness onset. No symptoms or risks identified at this time. Initial Sepsis Screen: Does the patient meet any 2 criteria? No. Patient's initial sepsis screen is negative. Does the patient have a suspected source of infection? No. Patient's initial sepsis screen is negative. Risk Assessment: Do you want to hurt yourself or someone else? Patient reports no desire to harm self or others. 11:22 Method Of Arrival: Ambulatory iw 11:22 Acuity: NETTE 3 iw Triage Assessment: 11:30 General: Appears in no apparent distress. comfortable, Behavior is cooperative, bp appropriate for age, anxious. Pain: Complains of pain in abdomen. EENT: No deficits noted. Neuro: No deficits noted. Cardiovascular: No deficits noted. Respiratory: No deficits noted. GI: Abdomen is non-distended. : No signs and/or symptoms were reported regarding the genitourinary system. Derm: No deficits noted. Musculoskeletal: No deficits noted. Historical: - Allergies: 11: No Known Allergies; iw - Home Meds: : amiodarone 200 mg Oral tab 1 tab once daily [Active]; Asmanex HFA 100 mcg/actuation iw inhalation HFAA 2 puffs 2 times per day [Active]; aspirin 81 mg Oral chew 1 tab once daily [Active]; captopril 25 mg Oral tab [Active]; Entresto 97-103 mg Oral tab 1 tab 2 times per day [Active]; famotidine 20 mg Oral tab 1 tab once daily [Active]; fluoxetine 20 mg Oral cap 1 cap once daily [Active]; furosemide 40 mg Oral tab 1 tab 2 times per day [Active]; isosorbide dinitrate 40 mg Oral TbER 1 tab once daily [Active]; metoprolol succinate 25 mg Oral Tb24 1 tab once daily [Active]; Potassium Chloride Oral [Active]; Sprivia 18 mcg daily [Active]; - PMHx: 11:26 Angina; CAD; COPD; Depression; Hypertension; Myocardial infarction; Prostate Cancer; iw - PSHx: 11:26 lung lobectomy; Angioplasty; defibrillator; iw - Immunization history:: Adult Immunizations up to date. - Social history:: Smoking status: Patient/guardian denies using tobacco, the patient reports quitting approximately 30 years ago. - Family history:: not pertinent. Screenin:30 Abuse screen: Denies threats or abuse. Denies injuries from another. Nutritional bp screening: No deficits noted. Tuberculosis screening: No symptoms or risk factors identified. Fall Risk None identified. Assessment: 11:30 General: SEE TRIAGE NOTE. bp 13:33 Reassessment: INITIAL TROPONIN GROSSLY ABNORMAL, PROVIDER NOTIFIED. bp 14:38 Reassessment: ADMIT INITIATED. PT ASYMPTOMATIC AT THIS TIME. bp Vital Signs: 11:22 BP 115 / 91; Pulse 88; Resp 20 S; Temp 97.7; Pulse Ox 94% on 2 lpm NC; Weight 84.82 kg; iw Height 6 ft. 1 in. (185.42 cm); Pain 0/10; 12:18 BP 95 / 74; Pulse 94; Resp 19; Pulse Ox 98% ; bp 13:32 BP 96 / 66; Pulse 83; Resp 19; Pulse Ox 100% ; bp 14:38 BP 117 / 90; Pulse 83; Resp 16; Pulse Ox 99% ; bp 11:22 Body Mass Index 24.67 (84.82 kg, 185.42 cm) iw ED Course: 11:17 Patient arrived in ED. ag5 11:23 Triage completed. iw 11:26 Arm band placed on. iw 11:27 Carol Aldana MD is Attending Physician. ma2 11:30 Patient has correct armband on for positive identification. Bed in low position. Call bp light in reach. Side rails up X2. Adult w/ patient. 11:55 Sunny Castellanos, RN is Primary Nurse. bp 12:06 Chest Single View XRAY In Process Unspecified. EDMS 12:15 Inserted saline lock: 22 gauge in right hand, using aseptic technique. Blood collected. bp 13:52 Leonard Cueto MD is Hospitalizing Provider. ma2 14:50 No provider procedures requiring assistance completed. Patient admitted, IV remains in bp place. Administered Medications: 12:15 Drug: NS 0.9% 500 ml Route: IV; Rate: 1 bolus; Site: right hand; bp 15:51 Follow up: IV Status: Completed infusion; IV Intake: 500ml bp 13:10 Drug: Aspirin Chewable Tablet 324 mg Route: PO; bp 14:23 Follow up: Response: No adverse reaction bp 14:37 Drug: Lovenox 1 mg/kg Route: Sub-Q; Site: right lower abdomen; bp 14:50 Follow up: Response: No adverse reaction bp Intake: 15:51 IV: 500ml; Total: 500ml. bp Outcome: 13:53 Decision to Hospitalize by Provider. ma2 15:49 Admitted to Med/surg accompanied by tech, via wheelchair, room 232, with chart, Report bp called to FOUZIA NÚÑEZ 15:49 Condition: stable 15:49 Instructed on the need for admit. 16:10 Patient left the ED. bp Signatures: Dispatcher [employer] EDMS Helen Stein RN RN iw Sunny Castellanos RN RN bp Carol Aldana MD MD me2 Danyel Lora ag5 Corrections: (The following items were deleted from the chart) 11:24 11:22 BP 115 / 91; Pulse 88bpm; Resp 20bpm; Spontaneous; Pulse Ox 94% 2 lpm Nasal iw Cannula; Temp 97.7F; 84.82 kg; Height 6 ft. 1 in.; BMI: 24.6; iw
--- NOTE | 2019-07-01 13:57 | EDPHYS ---
Physician Documentation [facility] Name: Jakob Romero Age: 84 yrs Sex: Male : 1935 Arrival Date: 07/01/2019 Time: 11:17 Bed 2 Private MD: ED Physician Carol Aldana HPI: 06/30 13:51 This 84 yrs old Male presents to ER via Ambulatory with complaints of ma2 Dizziness, Abdominal Pain. 13:51 The patient presents with dizziness. Onset: The symptoms/episode began/occurred ma2 gradually, 2 day(s) ago. Context: occurred. Associated signs and symptoms: Pertinent negatives: agitation, chest pain, diaphoresis, focal weakness. Severity of symptoms: At their worst the symptoms were mild in the emergency department the symptoms are unchanged. The patient has not experienced similar symptoms in the past. Historical: - Allergies: 11: No Known Allergies; iw - Home Meds: :26 amiodarone 200 mg Oral tab 1 tab once daily [Active]; Asmanex HFA 100 mcg/actuation iw inhalation HFAA 2 puffs 2 times per day [Active]; aspirin 81 mg Oral chew 1 tab once daily [Active]; captopril 25 mg Oral tab [Active]; Entresto 97-103 mg Oral tab 1 tab 2 times per day [Active]; famotidine 20 mg Oral tab 1 tab once daily [Active]; fluoxetine 20 mg Oral cap 1 cap once daily [Active]; furosemide 40 mg Oral tab 1 tab 2 times per day [Active]; isosorbide dinitrate 40 mg Oral TbER 1 tab once daily [Active]; metoprolol succinate 25 mg Oral Tb24 1 tab once daily [Active]; Potassium Chloride Oral [Active]; Sprivia 18 mcg daily [Active]; - PMHx: 11:26 Angina; CAD; COPD; Depression; Hypertension; Myocardial infarction; Prostate Cancer; iw - PSHx: 11: lung lobectomy; Angioplasty; defibrillator; iw - Immunization history:: Adult Immunizations up to date. - Social history:: Smoking status: Patient/guardian denies using tobacco, the patient reports quitting approximately 30 years ago. - Family history:: not pertinent. ROS: 13:51 Constitutional: Negative for fever, chills, and weight loss. ma2 13:51 All other systems are negative. Exam: 13:51 Constitutional: This is a well developed, well nourished patient who is awake, alert, ma2 and in no acute distress. Chest/axilla: Normal chest wall appearance and motion. Nontender with no deformity. No lesions are appreciated. Cardiovascular: Regular rate and rhythm with a normal S1 and S2. No gallops, murmurs, or rubs. Normal PMI, no JVD. No pulse deficits. Respiratory: Lungs have equal breath sounds bilaterally, clear to auscultation and percussion. No rales, rhonchi or wheezes noted. No increased work of breathing, no retractions or nasal flaring. Abdomen/GI: Soft, non-tender, with normal bowel sounds. No distension or tympany. No guarding or rebound. No evidence of tenderness throughout. Vital Signs: 11:22 BP 115 / 91; Pulse 88; Resp 20 S; Temp 97.7; Pulse Ox 94% on 2 lpm NC; Weight 84.82 kg; iw Height 6 ft. 1 in. (185.42 cm); Pain 0/10; 12:18 BP 95 / 74; Pulse 94; Resp 19; Pulse Ox 98% ; bp 13:32 BP 96 / 66; Pulse 83; Resp 19; Pulse Ox 100% ; bp 14:38 BP 117 / 90; Pulse 83; Resp 16; Pulse Ox 99% ; bp 11:22 Body Mass Index 24.67 (84.82 kg, 185.42 cm) iw MDM: 11:27 Patient medically screened. ma2 13:51 Differential diagnosis: cardiac arrhythmia, generalized weakness, vertigo. Differential ma2 diagnosis: nstemi, angina. 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 Counseling: I had a detailed discussion with the patient and/or guardian regarding: the historical points, exam findings, and any diagnostic results supporting the discharge/admit diagnosis, the presence of at least one elevated blood pressure reading (>120/80) during this emergency department visit, the need for outpatient follow up. Response to treatment: the patient's symptoms have markedly improved after treatment. 06/30 11:39 Order name: Basic Metabolic Panel; Complete Time: 12:52 co2 06/30 11:39 Order name: CBC with Diff co2 06/30 11:39 Order name: Creatinine for Radiology; Complete Time: 12:52 co2 06/30 11:39 Order name: Hepatic Function; Complete Time: 12:52 co2 06/30 11:39 Order name: Lipase; Complete Time: 12:52 co2 06/30 11:55 Order name: Troponin (emerg Dept Use Only); Complete Time: 12:58 co2 06/30 12:53 Order name: Flu co2 06/30 12:58 Order name: PT-INR; Complete Time: 14:11 co2 06/30 14:36 Order name: Basic Metabolic Panel EDMS 06/30 14:36 Order name: CBC with Automated Diff EDMS 06/30 14:36 Order name: PTT, Activated Partial Thromb EDMS 06/30 14:36 Order name: CKMB Creatine Kinase MB EDAK 06/30 14:36 Order name: CKMB Creatine Kinase MB EDMS 06/30 14:36 Order name: CKMB Creatine Kinase MB EDAK 06/30 11:55 Order name: Chest Single View XRAY; Complete Time: 12:18 [facility] 06/30 14:36 Order name: CKMB Creatine Kinase MB EDAK 06/30 14:36 Order name: Troponin I EDAK 06/30 14:36 Order name: Troponin I EDMS 06/30 14:36 Order name: Troponin I EDAK 06/30 14:36 Order name: Troponin I EDAK 06/30 14:38 Order name: Basic Metabolic Panel EDAK 06/30 14:38 Order name: Basic Metabolic Panel [facility] 06/30 14:38 Order name: CBC with Automated Diff EDMS 06/30 14:38 Order name: CBC with Automated Diff EDMS 06/30 14:38 Order name: Troponin I [facility] 06/30 14:58 Order name: Urine Dipstick--Ancillary (enter results) 06/30 15:13 Order name: CBC Smear Scan EDAK 06/30 11:39 Order name: IV Saline Lock; Complete Time: 12:18 [facility] 06/30 11:39 Order name: Labs collected and sent; Complete Time: 11:53 co2 06/30 12:05 Order name: Labs - recollect needed; Complete Time: 12:18 06/30 12:54 Order name: Urine Dipstick-Ancillary (obtain specimen); Complete Time: 14:59 [facility] 06/30 12:58 Order name: EKG - Nurse/Tech; Complete Time: 13:33 [facility] 06/30 12:59 Order name: Call for Old EKG [facility] 06/30 14:35 Order name: CONS Physician Consult [facility] 06/30 14:35 Order name: Heart Healthy [facility] 06/30 14:35 Order name: EKG Electrocardiogram [facility] 06/30 14:35 Order name: EKG Electrocardiogram [facility] 06/30 14:36 Order name: EKG Electrocardiogram [facility] 06/30 14:36 Order name: EKG Electrocardiogram [facility] 06/30 14:38 Order name: EKG Electrocardiogram [facility] 06/30 14:38 Order name: EKG Electrocardiogram [facility] 06/30 14:38 Order name: EKG Electrocardiogram [facility] 06/30 14:38 Order name: EKG Electrocardiogram [facility] Administered Medications: 12:15 Drug: NS 0.9% 500 ml Route: IV; Rate: 1 bolus; Site: right hand; bp 15:51 Follow up: IV Status: Completed infusion; IV Intake: 500ml bp 13:10 Drug: Aspirin Chewable Tablet 324 mg Route: PO; bp 14:23 Follow up: Response: No adverse reaction bp 14:37 Drug: Lovenox 1 mg/kg Route: Sub-Q; Site: right lower abdomen; bp 14:50 Follow up: Response: No adverse reaction bp Disposition: 07/01/19 13:53 Hospitalization ordered by Leonard Cueto for Inpatient Admission. Preliminary diagnosis is Chest pain, unspecified. - Bed requested for Telemetry/MedSurg (Inpatient). - Status is Inpatient Admission. bp - Condition is Stable. - Problem is new. - Symptoms are unchanged. Signatures: Dispatcher [employer] [facility] Davina Arvizu Helen Stein, RN RN iw Sunny Castellanos, NIYA RN bp Carol Aldana MD MD ma2 Corrections: (The following items were deleted from the chart) 13:01 12:54 Abdomen Pelvis Wo Con+CT.RAD.BRZ ordered. [facility] 14:46 13:53 Hospitalization Ordered by Leonard Cueto MD for Inpatient Admission. Preliminary bd diagnosis is Chest pain, unspecified. Bed requested for Telemetry/MedSurg (Inpatient). Status is Inpatient Admission. Condition is Stable. Problem is new. Symptoms are unchanged. ma2 14:47 14:38 Troponin I ordered. EDAK EDAK 16:10 14:46 07/01/2019 13:53 Hospitalization Ordered by Leonard Cueto MD for Inpatient bp Admission. Preliminary diagnosis is Chest pain, unspecified. Bed requested for Telemetry/MedSurg (Inpatient). Status is Inpatient Admission. Condition is Stable. Problem is new. Symptoms are unchanged. bd
[2019-07-01] MEDS ORDERED: NITROGLYCERIN 0.4 MG/TAB SL PRN (14:16)
[2019-07-01] MEDS ORDERED: ENOXAPARIN 100 MG/ML SYR SQ ONE (14:40)
[2019-07-01 15:12] LABS: Anisocytosis 1+; Blood Morphology Comment NOTED (NOT SEEN); Platelet Estimate ADEQ; White Blood Cell Scan OK
[2019-07-01 15:13] LABS: Poikilocytosis 1+
[2019-07-01 15:14] LABS: Polychromasia 1+
[2019-07-01 16:17] VITALS: BMI 24.6
[2019-07-01 16:59] LABS: Urine Blood NEGATIVE (NEG); Urine Glucose NEGATIVE (NEG); Urine Protein NEGATIVE (NEG); Urine Specific Gravity 1.015 (1.005-1.030)
[2019-07-01] MEDS ORDERED: AMIODARONE HCL 200 MG TAB PO SCH (17:00)
--- NOTE | 2019-07-01 19:42 | CON ---
History Of Present Illness: Mr. Romero is 84. Came to the hospital because of abdominal pain, naus ea. He threw up once. He did not have any chest pain. He is not feeling any of the nausea or anyth ing else right now. 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 He was in our hospital just last week. His ejection fraction is in the 20s. He has a biventricular pacing defibrillator, chronic congesti ve heart failure. We interrogated his pacemaker defibrillator and found that it was working fine jus t a week or so ago. He has had numerous revascularization procedures. Medications: His most recent outpatient medications have been fluoxetine, aspirin, metoprolol, furos emide, multivitamin, amiodarone, famotidine, melatonin, sacubitril valsartan or Entresto. Denies chest pain, shortness of breath. In fact, he feels all the way back to normal. Physical Examination: General: He is 6 feet 1 inch, 187 pounds, very forgetful, hard of hearing. He always looks to his w ruth to answer questions for him and he seems to have forgotten mostly. On physical exam, he is alert , not oriented, pleasant, cooperative. Lungs: Do not reveal crackles or wheeze. Heart: Reveals muffled heart tones, laterally displaced apical impulse. Extremities: Minimal edema. Distal pulses diminished. Diagnostic Data: His electrocardiogram shows AV sequential pacing, uninterpretable for infarction in jury or ischemia. His chest x-ray shows mild CHF, volume overload pattern. Laboratory Exam: Significant for a hemoglobin of 10.8, normal white blood cell count, normal platele t count. His troponin is 4.41. His creatinine is 1.92. Impression: The patient does have an acute coronary syndrome. He is not a revascularization ramona te. I would not recommend doing a heart cath. I think we would cause renal failure. Overall, his p rognosis is terrible, but I do not think we would improve it by doing a heart cath. Rather than that I would recommend that we do an echocardiogram, reassess that, perhaps add more beta blockers. Get him back on his Entresto and metoprolol. Consider adding Ranexa, but I would not recommend doing a c ardiac cath at this point. PAULO/RADHA Voice ID: [id number] Report ID: [id number]
--- NOTE | 2019-07-01 21:06 | HP ---
Date of Admission: 07/01/2019 Chief Complaint: Chest pain and shortness of breath. History Of Present Illness: This is an 84-year-old very pleasant male patient with multiple comorbid ities came into emergency room, with complaints of chest pain and shortness of breath. Patient has c oronary artery disease, chronic systolic congestive heart failure, came into ER with complaints of ch est tightness and shortness of breath. No fever, chills, nausea, vomiting. After he was evaluated i n the ER, he was admitted to the hospital with non-STEMI. When I saw him, he was asymptomatic in the emergency room, his was with him at bedside. Allergies: NO KNOWN ALLERGIES. Medications: Aspirin 81 mg daily, famotidine 20 mg at bedtime, fluoxetine 20 mg p.o. daily, Flovent inhaler Diskus 1 puff by mouth 2 times a day, furosemide 40 mg p.o. daily, metolazone 2.5 mg p.o. 2 t imes a week, metoprolol 25 mg the patient takes half a tablet p.o. daily, Entresto 24/26 mg 1 tablet by mouth 2 times a day, Spiriva 1 puff daily. Review of Systems: Cardiovascular: As mentioned above. Respiratory: As mentioned above. All other systems reviewed and negative. Past Medical History: Significant for COPD, hypertension, hyperlipidemia, chronic systolic congestiv e heart failure, gastroesophageal reflux disease, chronic kidney disease stage 3, prostate cancer, an emia, depression. Past Surgical History: Cataract surgery, prostatectomy. Family History: Father of [place]. Mother had diabetes. Brother had cancer of pancreas and prostat e cancer, heart disease. Social History: Prior history of smoking not at present time. Use of alcohol, negative. Physical Examination: Vital Signs: Temperature 97.7, pulse 83, respiratory rate 16, blood pressure 117/90. General: Awake, alert, oriented, not in distress. HEENT: Head atraumatic, normocephalic. Conjunctivae nonerythematous. Sclerae white. Mouth, no thr ush or edema noted. Ears/Nose, no mass, lesion, discharge noted. Neck: Supple. No JVD, lymph nodes, bruit, thyromegaly noted. Lungs: Bilateral good equal air entry. Clear to auscultation. No rhonchi. No rales. Heart: Normal heart sounds, no murmur or gallop. Abdomen: Soft, bowel sounds normal. No guarding, rigidity, tenderness, mass, hepatosplenomegaly, dis tention, or bruit noted. Extremities: No leg edema. No calf tenderness. Skin: No rash, ulcer, cellulitis. Lymphatics: No lymph node enlargement in neck, supraclavicular, infraclavicular region. Neuro: No focal neurological deficit. Chest: Unremarkable. External Genitalia: Deferred. Rectal: Deferred. Laboratory Data: White count 10.6, hemoglobin 10.8, platelets 176. Sodium 138, potassium 3.7, chlor cholo 102, bicarb 28, BUN 25, creatinine 1.89, glucose 166, total bilirubin 1.8, AST 52. Troponin 4.41 . Chest x-ray, prominent interstitial markings. Impression: 1.Vlb-EY-istgguwcs myocardial infarction. 2.Chronic systolic congestive heart failure. 3.Chronic kidney disease, stage 3. 4.Anemia due to chronic kidney disease. 5.Hypertension. 6.Hyperlipidemia. 7.Congestive heart failure, chronic, systolic. 8.Gastroesophageal reflux disease. 9.Prostate cancer. 10.Depression. Plan: Admit patient to hospital for further evaluation and management of this problem. Patient is a ppropriate for inpatient and is expected to spend 2 midnights in hospital. Lovenox 1 mg/kg subcutane ous injection was given in the emergency room after ER physician called me. Cardiology consultation will be requested. We will get echo with Doppler and home medications will be continued per order. Patient is not really a great candidate for any invasive procedures and conservative medical treatmen t is recommended and I will see what rock cutter recommendation is, if it is any different or not bu t that will be my recommendation. I have discussed those details with the patient and patient's . We also talked about advance directives and as per patient's decision, DNR order will be written i n the chart. Starting tomorrow, we will have Physical Therapy to ambulate the patient and I will see him in the morning for followup. ANA/MODL Voice ID: [id number]
[2019-07-01 21:08] LABS: Absolute Lymphocytes (CBC) 1.1 K/uL (0.7-4.9); Basophils % 0.5 % (0-1.3); Hematocrit 29.9 % (39.6-49.0); Lymphocytes % 12.4 % (15.3-44.8); MPV 8.6 fL (7.6-11.3); RBC Red Blood Cell Count 3.23 M/uL (4.33-5.43)
[2019-07-01 21:23] LABS: Potassium 3.9 mmol/L (3.5-5.1)
[2019-07-01 21:32] LABS: CKMB Creatine Kinase MB 14.5 ng/mL (0.3-3.6)
[2019-07-01 21:38] LABS: Troponin I 7.36 ng/mL (0.0-0.045)
--- NOTE | 2019-07-01 21:51 | EKG ---
Test Date: 2019-07-01 Test Time: 13:37:30 Rayon Winder: SHAYNA MEASUREMENT RESULTS: Intervals: Rate: 83 CO: 176 QRSD: 188 QT: 480 QTc: 564 [place]: P: CO: 176 QRS: 219 T: 230 INTERPRETIVE STATEMENTS: Atrial-sensed ventricular-paced rhythm tracking sinus rhythm Compared to ECG 06/23/2019 08:10:28 AV dual-paced complex(es) or rhythm no longer present Electronically Signed On 07-01-19 21:50:36 CDT by Oskar Saha
[2019-07-02 05:57] LABS: Absolute Lymphocytes (CBC) 0.6 K/uL (0.7-4.9); Basophils % 0.2 % (0-1.3); Hematocrit 31.2 % (39.6-49.0); MPV 9.1 fL (7.6-11.3); RBC Red Blood Cell Count 3.38 M/uL (4.33-5.43)
[2019-07-02 06:26] LABS: CKMB Creatine Kinase MB 10.4 ng/mL (0.3-3.6); Troponin I 6.65 ng/mL (0.0-0.045)
[2019-07-02 07:39] LABS: Blood Morphology Comment NOTED (NOT SEEN); Platelet Estimate ADEQ; Platelets, Giant FEW; Rouleau NOTED
[2019-07-02] MEDS: AMIODARONE HCL 200 MG TAB PO SCH (08:07)
[2019-07-02] MEDS: FLUOXETINE 20 MG CAP PO SCH (08:08)
[2019-07-02] MEDS: SACUBITRIL/VALSARTAN 24/26 MG TAB PO SCH (08:08)
[2019-07-02] MEDS: METOPROLOL XL 25 MG TAB PO SCH (08:08)
[2019-07-02] MEDS: ASPIRIN 81 MG CHEWABLE TABLET PO SCH (08:08)
[2019-07-02] MEDS ORDERED: ASPIRIN EC 81 MG TAB PO SCH ×2 (09:00)
--- NOTE | 2019-07-02 10:29 | EKG ---
Test Date: 2019-07-02 Test Time: 09:10:29 Global Sourcing Manager: SHAYNA MEASUREMENT RESULTS: Intervals: Rate: 93 MO: 104 QRSD: 152 QT: 458 QTc: 569 Scalf: P: 89 MO: 104 QRS: -81 T: 261 INTERPRETIVE STATEMENTS: Electronic ventricular pacemaker Compared to ECG 07/01/2019 13:37:30 Atrial-sensed ventricular-paced complex(es) or rhythm no longer present Sinus rhythm no longer present Electronically Signed On 07-02-19 10:28:58 CDT by Faraz Dubon
--- NOTE | 2019-07-02 12:11 | PN ---
Date of Progress Note: 07/02/2019 Subjective: Mr. Romero was admitted to Dr. Cueto's service on 07/01/2019 with a non-ST elevation verónica cardial infarction, although patient's symptoms were mostly abdominal pain and dizziness without any specific chest pain, but his troponin was 4.41. He had a creatinine of 1.92. He has an ejection fra ction of 22%. He is not really a candidate for revascularization or further invasive cardiac workup. He is on Entresto, Lasix, metoprolol, amiodarone, and aspirin. He is feeling much better today. H is heart rate is 94. His blood pressure is 117/55. His O2 saturation on room air was 94%. He was i n a paced rhythm. His last creatinine was 1.95. Last hemoglobin was 10.6. Today, he denied any k[address] st pain or abdominal pain. He denied any dizziness. Objective: Lungs: On examination, he has no rales. Cardiac: Revealed a paced rhythm. Abdomen: Benign. Extremities: Revealed 1+ edema. Laboratory Data: Last troponin was 6.65. His present medication was listed earlier. Recommendations: I do not recommend any further cardiac workup or any change in his medicine. He is on Ranexa 500 mg b.i.d. that was started yesterday by Dr. Saha. I am comfortable with him going h ome whenever it is okay with Dr. Cueto. He sees me in the office on a regular basis and eventually co me see in the next 2 weeks. ELVA/RADHA Voice ID: [id number] Report ID: [id number]
[2019-07-02 13:33] LABS: CKMB Creatine Kinase MB 10.5 ng/mL (0.3-3.6)
[2019-07-02 13:34] LABS: Troponin I 6.39 ng/mL (0.0-0.045)
--- NOTE | 2019-07-02 13:58 | ECHO ---
HEIGHT: 6 ft 1 in WEIGHT: 187 lb 0 oz DATE OF STUDY: 07/02/[address]: Oskar Saha MD 2-DIMENSIONAL: YES M.MODE: YES DOPPLER: YES COLOR FLOW: YES TDS: NO PORTABLE: NO DEFINITY: NO BUBBLE STUDY: NO DIAGNOSIS: CONGESTIVE HEART FAILURE, CORONARY ARTERY DISEASE CARDIAC HISTORY: CATHERIZATION: YES SURGERY: NO PROSTHETIC VALVE: NO PACEMAKER: YES MEASUREMENTS (cm) DIASTOLIC (NORMALS) SYSTOLIC (NORMALS) IVSd 1.1 (0.6-1.2) LA Diam 4.4 (1.9-4.0) LVEF 22% LVIDd 6.8 (3.5-5.7) LVIDs 6.1 (2.0-3.5) %FS 11% LVPWd 1.2 (0.6-1.2) Ao Diam 2.8 (2.0-3.7) 2 DIMENSIONAL ASSESSMENT: RIGHT ATRIUM: DILATED LEFT ATRIUM: DILATED RIGHT VENTRICLE: PACER, DILATED LEFT VENTRICLE: DILATED TRICUSPID VALVE: NORMAL MITRAL VALVE: NORMAL PULMONIC VALVE: NORMAL AORTIC VALVE: NORMAL PERICARDIAL EFFUSION: NONE AORTIC ROOT: NORMAL LEFT VENTRICULAR WALL MOTION: SEVERE GLOBAL HYPOKINESIS. DOPPLER/COLOR FLOW: MILD TRICUSPID REGURGITATION- RIGHT VENTRICULAR SYSTOLIC PRESSURE NORMAL. COMMENTS: SEVERE GLOBAL HYPOKINESIS. EJECTION FRACTION 20-22%. PACER IN RIGHT VENTRICULAR APEX. MILD TRICUSPID REGURGITATION. FOUR CHAMBER DILATATION. NO CHANGE FROM 11/2018 TECHNOLOGIST: REESE SPARKS
[2019-07-02] MEDS ORDERED: ENOXAPARIN 40 MG/0.4 ML SQ ONE (20:58)
--- NOTE | 2019-07-02 21:41 | PN ---
Date of Progress Note: 07/02/2019 Subjective: Patient was seen this morning for followup. No new complaints problems reported by the patient. Sitting at bedside. Denies any chest pain, shortness of breath. Objective: Vital Signs: Reviewed. HEENT: Unremarkable. Lungs: Clear to auscultation. Cardiac: Heart sounds normal. Abdomen: Soft, bowel sounds normal. No guarding, rigidity, tenderness, or distention. Extremities: No leg edema. Laboratory Data: Echocardiogram shows ejection fraction 22% and this is from today. White count 12. 7, hemoglobin 10.6, platelets 192. Sodium 138, potassium 4, chloride 104, bicarb 24, BUN 37, creatin ine 2.30, glucose 157. Troponin was 6.65. Impression: 1.Mnd-FF-mwmwgrusp myocardial infarction. 2.Chronic kidney disease, stage 3. 3.Anemia. Plan: We will go ahead and continue current medications. Patient received 1 dose of Lovenox in the emergency room. We will give second dose today. Continue other current medication. 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 ANA/MODL Voice ID: [id number] Report ID: [id number]
[2019-07-03 04:48] VITALS: O2SAT 97
[2019-07-03 05:38] LABS: Absolute Lymphocytes (CBC) 0.6 K/uL (0.7-4.9); Basophils % 0.4 % (0-1.3); Hematocrit 30.7 % (39.6-49.0); Lymphocytes % 5.1 % (15.3-44.8); MPV 9.6 fL (7.6-11.3); RBC Red Blood Cell Count 3.35 M/uL (4.33-5.43)
[2019-07-03 05:57] LABS: Magnesium 2.3 mg/dL (1.8-2.4); Potassium 3.9 mmol/L (3.5-5.1)
[2019-07-03] MEDS: METOPROLOL XL 25 MG TAB PO SCH (08:32)
[2019-07-03] MEDS: FLUOXETINE 20 MG CAP PO SCH (08:32)
[2019-07-03] MEDS: SACUBITRIL/VALSARTAN 24/26 MG TAB PO SCH (08:32)
[2019-07-03] MEDS: AMIODARONE HCL 200 MG TAB PO SCH (08:32)
[2019-07-03] MEDS: ASPIRIN 81 MG CHEWABLE TABLET PO SCH (08:32)
[2019-07-03 08:33] VITALS: BP 94/72
[2019-07-03] MEDS ORDERED: ENSURE HIGH PROTEIN 237 ML CAN PO SCH (09:00)
[2019-07-03 10:35] VITALS: TEMP 97
--- NOTE | 2019-07-03 22:02 | DS ---
Date of Discharge: 07/03/2019 Subjective: Patient was seen this morning for followup. He was sitting at bedside with his and son. Objective: Vital Signs: Reviewed. HEENT: Unremarkable. Lungs: Clear to auscultation. Cardiac: Heart sounds normal. Abdomen: Soft, bowel sounds normal. No guarding, rigidity, tenderness, or distention. Extremities: No leg edema. Discharge Diagnoses: 1. Wxu-WS-gqnbwlgkv myocardial infarction. 2. Chronic systolic congestive heart failure. 3. Chronic kidney disease, stage 3. 4. Anemia due to chronic kidney disease. 5. Hypertension. 6. Hyperlipidemia. 7. Congestive heart failure, chronic, systolic. 8. Gastroesophageal reflux disease. 9. Prostate cancer. 10. Depression. Discharge Medications And Instructions: 1. Continue all prior home medications. 2. Take Ranexa 500 mg p.o. 2 times a day. 3. Follow up at my office next week on Monday. Hospital Course: An 84-year-old male patient admitted to the hospital after he came into emergency room with complaints of chest pain, shortness of breath. Please see dictated H and P for more information. Patient was admitted to the hospital with non-STEMI. His troponin was 4. When he came into emergency room , Lovenox injection was started. Cardiology consult consultation was requested. Medical management was suggested as patient is not a candidate for any surgical intervention. Echocardiogram showed ejection fraction 20%-22%. Dr. Saha saw him from Cardiology and added Ranexa. His home medications were continued. Overall, patient's condition remained stable and he was discharged to go home in stable condition with above-mentioned medications and instructions. ANA/MODL Voice ID: [id number] Report ID: [id number] NETTA
== END 2019-07-03 11:34 | disposition home or self-care (01) | DRG 281 ==
LOC: ER 11:15 → ERHOLD 14:18 → 2ND 15:56
PROVIDERS: ADMIT Internal Medicine; ATTEND Internal Medicine
DX: I21.4 Non-ST elevation (NSTEMI) myocardial infarction (principal); I13.0 Hypertensive heart and chronic kidney disease with heart failure and stage 1 through stage 4 chronic kidney disease, or unspecified chronic kidney disease; I50.22 Chronic systolic (congestive) heart failure; I25.10 Atherosclerotic heart disease of native coronary artery without angina pectoris; N18.3 Chronic kidney disease, stage 3 (moderate); D63.1 Anemia in chronic kidney disease; E78.5 Hyperlipidemia, unspecified; K21.9 Gastro-esophageal reflux disease without esophagitis; F32.9 Major depressive disorder, single episode, unspecified; Z85.46 Personal history of malignant neoplasm of prostate
CPT/HCPCS: 36415; 71045; 80048; 80076; 81003; 82553; 82947; 83690; 83735; 84484; 85025; 85610; 85730; 87804; 93005; 93306; 94760; 96360; 96361; 96372; 99285; J1650; J7040

== ENCOUNTER 2019-07-08 20:12 | Inpatient (IN) | payer OTHER, MEDICARE ==
[2019-07-08] MEDS ORDERED: NA CHLORIDE 0.9% 500 ML ONE ×2 (20:58→22:28)
[2019-07-08] MEDS ORDERED: ONDANSETRON 4 MG/2 ML VIAL ONE (20:58)
[2019-07-08 21:19] LABS: Absolute Lymphocytes (CBC) 0.5 K/uL (0.7-4.9); Basophils % 0.2 % (0-1.3); Hematocrit 32.3 % (39.6-49.0); Lymphocytes % 4.8 % (15.3-44.8); MPV 9.1 fL (7.6-11.3)
[2019-07-08 21:23] LABS: Protime INR 1.42
[2019-07-08 22:02] LABS: Albumin 3.3 g/dL (3.4-5.0); Bilirubin Total 1.8 mg/dL (0.2-1.0); Magnesium 2.5 mg/dL (1.8-2.4); Protein, Total 7.1 g/dL (6.4-8.2); Troponin (Emerg Dept Use Only) 4.2 ng/mL (0.0-0.045)
[2019-07-08 22:05] LABS: Potassium 2.6 mmol/L (3.5-5.1)
--- NOTE | 2019-07-08 22:21 | ER ---
Nurse's Notes [facility] Name: Jakob Romero Age: 84 yrs Sex: Male : 1935 Arrival Date: 07/08/2019 Time: 20:15 Bed 27 Private MD: Diagnosis: Non-ST elevation (NSTEMI) myocardial infarction;Hypokalemia Presentation: 07/07 20:29 Chief complaint: Patient states: Nausea and feeling ill earlier, feels better now. EMS ll1 states: Near syncope event at home. Family thought he was having another heart attack so they called 911. Patient reports nausea now. States he felt like passing out earlier, but feels better now. No cough or fever. Coronavirus screen: Patient denies fever greater than 100.4F, cough, shortness of breath, or difficulty breathing. Proceed with normal triage process. Ebola Screen: Patient denies travel to an Ebola-affected area in the 21 days before illness onset. Initial Sepsis Screen: Does the patient meet any 2 criteria? No. Patient's initial sepsis screen is negative. Does the patient have a suspected source of infection? No. Patient's initial sepsis screen is negative. Risk Assessment: Do you want to hurt yourself or someone else? Patient reports no desire to harm self or others. 20:29 Method Of Arrival: EMS: [facility] 20:29 Acuity: NETTE 3 1 21:04 Onset of symptoms was July 08, 2019. 1 Triage Assessment: 20:35 General: Appears in no apparent distress. Behavior is calm, cooperative. Pain: Denies ll1 pain. Neuro: Level of Consciousness is awake, alert, Oriented to person, place, Director Of Knowledge Management are equal bilaterally Moves all extremities. 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 Denies headache. Cardiovascular: Denies chest pain, Heart tones S1 S2 Capillary refill < 3 seconds JVD is absent Patient's skin is warm and dry. Pulses are 2+ in right radial artery and left radial artery. Respiratory: No deficits noted. GI: Abdomen is flat, Bowel sounds present X 4 quads. Abd is soft and non tender X 4 quads. Reports nausea. Historical: - Allergies: 20:33 No Known Allergies; ll1 - PMHx: 20:33 Angina; Prostate Cancer; Hypertension; Myocardial infarction; CAD; COPD; Depression; ll1 - PSHx: 20:33 defibrillator; lung lobectomy; Angioplasty; ll1 - Immunization history:: Adult Immunizations up to date. - Social history:: Patient/guardian denies using alcohol, street drugs, Smoking status: . Screenin:34 Abuse screen: Denies threats or abuse. Nutritional screening: No deficits noted. ll1 Tuberculosis screening: No symptoms or risk factors identified. Fall Risk IV access (20 points). Ambulatory Aid- Crutches/Cane/Walker (15 pts). Mental Status- Overestimates/Forgets Limitations (15 pts.). Total Harden Fall Scale indicates High Risk Score (45 or more points). Fall prevention measures have been instituted. Side Rails Up X 2 Placed Close to Nursing Station Frequent Obs/Assessments Occuring As available patient and family educated on Fall Prevention Program and Strategies. Assessment: 20:37 General: Appears in no apparent distress. Behavior is calm, cooperative. Pain: Denies ll1 pain. Neuro: No deficits noted. Cardiovascular: No deficits noted. Respiratory: No deficits noted. GI: Abdomen is flat, Bowel sounds present X 4 quads. Abd is soft and non tender X 4 quads. Reports nausea. Vital Signs: 20:29 BP 89 / 52; Pulse 72; Resp 18; Temp 98.6; Pulse Ox 99% ; Pain 0/10; ll1 21:09 BP 95 / 67; Pulse 71; Resp 18; Pulse Ox 97% ; Pain 0/10; ll1 22:21 Weight 86.18 kg; ll1 22:49 BP 91 / 66; Pulse 68; Resp 18; Pulse Ox 100% on 2 lpm NC; Pain 0/10; ll1 23:00 BP 86 / 56; Pulse 70; Resp 18; Pulse Ox 100% ; Pain 0/10; ll1 23:17 BP 95 / 55; Pulse 80; Resp 18; Temp 98.3; Pulse Ox 100% on 2 lpm NC; Pain 0/10; ll1 23:37 BP 95 / 64; Pulse 82; Resp 19; Pulse Ox 100% on 2 lpm NC; Pain 0/10; ll1 Vitals: 23:29 Cardiac Rhythm Assessment Paced. Cardiac Rhythm Assessment Paced. ll1 ED Course: 20:15 Patient arrived in ED. ll1 20:19 Augusto Lepe NP is PHCP. pm1 20:19 Felipe Yao MD is Attending Physician. pm1 20:27 Griffin Dee, NIYA is Primary Nurse. ll1 20:31 Triage completed. ll1 20:33 Arm band placed on Patient placed in an exam room, on a stretcher. ll1 20:37 Patient has correct armband on for positive identification. Bed in low position. Call ll1 light in reach. Side rails up X2. Pulse ox on. NIBP on. 20:55 Missed attempt(s): 20 gauge in right forearm. Bleeding controlled, band aid applied, ll1 catheter tip intact. 21:03 EKG done, by ED staff, reviewed by Augusto Lepe NP. ll1 21:04 Inserted saline lock: 22 gauge in left wrist, using aseptic technique. Blood collected. jp3 21:04 Initial lab(s) drawn, by me, sent to lab. jp3 21:14 Troponin (emerg Dept Use Only) Sent. jp3 21:14 LFT's Sent. jp3 21:14 PT-INR Sent. jp3 21:14 NT PRO-BNP Sent. jp3 21:14 Magnesium Sent. jp3 21:14 CBC with Diff Sent. jp3 21:15 Basic Metabolic Panel Sent. jp3 21:45 XRAY Chest (1 view) In Process Unspecified. EDMS 22:00 Notified Nurse Practitioner and/or Physician Vascular Tech of a critical lab result(s), jd3 elevated troponin and low potassium. 22:19 Ruiz Cueto MD is Hospitalizing Provider. pm1 22:42 surveillance monitor on. Paced rhythm on monitor. ll1 23:30 No provider procedures requiring assistance completed. Patient admitted, IV remains in ll1 place. Administered Medications: 21:16 Drug: NS 0.9% 500 ml Route: IV; Rate: bolus; Site: left forearm; ll1 22:50 Follow up: Response: No adverse reaction; RASS: Alert and Calm (0); IV Status: ll1 Completed infusion; IV Intake: 500ml 21:17 Drug: Zofran (Ondansetron) 4 mg Route: IVP; Site: left forearm; ll1 22:51 Follow up: Response: No adverse reaction; Nausea is decreased ll1 22:42 Drug: Potassium Effervescent Tablet 50 mEq Route: PO; ll1 22:51 Follow up: Response: No adverse reaction; RASS: Alert and Calm (0) 1 22:42 Drug: Potassium Chloride 20 mEq Route: IV; Rate: 25 ml/hr; Site: left forearm; 1 23:43 Follow up: Response: No adverse reaction; Still infusing upon admission to room 431 ll1 22:43 Drug: Lovenox 1 mg/kg Route: Sub-Q; Site: right lower abdomen; ll1 22:52 Follow up: Response: No adverse reaction 1 22:43 Drug: Aspirin Chewable Tablet 324 mg Route: PO; ll1 22:52 Follow up: Response: No adverse reaction [facility] Intake: 22:50 IV: 500ml; Total: 500ml. 1 Outcome: 22:19 Decision to Hospitalize by Provider. pm1 23:30 Admitted to Med/surg accompanied by tech, family with patient, via stretcher, room 431, ll1 with oxygen, Report called to Juli Quarles Concerned about low BP. Manuel Lepe NP and Charge nurse Jadyn informed. 23:35 Condition: unchanged ll1 23:35 Instructed on the need for admit. 23:42 Patient left the ED. 1 Signatures: Dispatcher [employer] EDAugusto Funes NP FOOD SERVICE DIRECTOR pm1 Lane English RN RN [id number] Waldemar Arguello 3 Griffin Dee, RN RN ll1 Corrections: (The following items were deleted from the chart) 22:37 22:36 Notified Nurse Practitioner and/or Physician Vascular Tech of a critical lab jd3 result(s), elevated troponin and low potassium. jd3
--- NOTE | 2019-07-08 22:21 | EDPHYS ---
Physician Documentation [facility] Name: Jakob Romero Age: 84 yrs Sex: Male : 1935 Arrival Date: 07/08/2019 Time: 20:15 Bed 27 Private MD: ED Physician Felipe Yao HPI: 07/07 20:25 This 84 yrs old Male presents to ER via EMS with complaints of Nausea. pm1 20:25 The patient presents to the emergency department with nausea, near syncopal event per pm1 EMS. Onset: The symptoms/episode began/occurred just prior to arrival. Possible causes: unknown. The symptoms are aggravated by nothing. The symptoms are alleviated by nothing. Associated signs and symptoms: Pertinent negatives: abdominal pain, fever, Chest pain, shortness of breath, cough. Severity of symptoms: in the emergency department the symptoms are unchanged Pain is currently a 0 / 10. The patient has been recently been admitted at [facility], by Dr. Cueto. Patient recently admitted last week for NSTEMI. Historical: - Allergies: 20:33 No Known Allergies; ll1 - PMHx: 20:33 Angina; Prostate Cancer; Hypertension; Myocardial infarction; CAD; COPD; Depression; ll1 - PSHx: 20:33 defibrillator; lung lobectomy; Angioplasty; ll1 - Immunization history:: Adult Immunizations up to date. - Social history:: Patient/guardian denies using alcohol, street drugs, Smoking status: . ROS: 20:49 Constitutional: Negative for fever, chills, and weight loss, Eyes: Negative for injury, pm1 pain, redness, and discharge, ENT: Negative for injury, pain, and discharge, Neck: Negative for injury, pain, and swelling, Cardiovascular: Negative for chest pain, palpitations, and edema, Respiratory: Negative for shortness of breath, cough, wheezing, and pleuritic chest pain. 20:49 Back: Negative for injury and pain, MS/Extremity: Negative for injury and deformity, Skin: Negative for injury, rash, and discoloration, Neuro: Negative for headache, weakness, numbness, tingling, and seizure. 20:49 Abdomen/GI: Positive for nausea, Negative for abdominal pain, vomiting, diarrhea, constipation. Exam: 20:49 Constitutional: This is a well developed, well nourished patient who is awake, alert, pm1 and in no acute distress. Head/Face: Normocephalic, atraumatic. Neck: Trachea midline, no thyromegaly or masses palpated, and no cervical lymphadenopathy. Supple, full range of motion without nuchal rigidity, or vertebral point tenderness. No Meningismus. Chest/axilla: Normal chest wall appearance and motion. Nontender with no deformity. No lesions are appreciated. Cardiovascular: Regular rate and rhythm with a normal S1 and S2. No gallops, murmurs, or rubs. No pulse deficits. Respiratory: Lungs have equal breath sounds bilaterally, clear to auscultation and percussion. No rales, rhonchi or wheezes noted. No increased work of breathing, no retractions or nasal flaring. Abdomen/GI: Soft, non-tender, with normal bowel sounds. No distension or tympany. No guarding or rebound. No evidence of tenderness throughout. Back: No spinal tenderness. No costovertebral tenderness. Full range of motion. Skin: Warm, dry with normal turgor. Normal color with no rashes, no lesions, and no evidence of cellulitis. MS/ Extremity: Pulses equal, no cyanosis. Neurovascular intact. Full, normal range of motion. 20:49 Neuro: Orientation: is normal, Motor: is normal, moves all fours. Vital Signs: 20:29 BP 89 / 52; Pulse 72; Resp 18; Temp 98.6; Pulse Ox 99% ; Pain 0/10; ll1 21:09 BP 95 / 67; Pulse 71; Resp 18; Pulse Ox 97% ; Pain 0/10; ll1 22:21 Weight 86.18 kg; ll1 22:49 BP 91 / 66; Pulse 68; Resp 18; Pulse Ox 100% on 2 lpm NC; Pain 0/10; ll1 23:00 BP 86 / 56; Pulse 70; Resp 18; Pulse Ox 100% ; Pain 0/10; ll1 23:17 BP 95 / 55; Pulse 80; Resp 18; Temp 98.3; Pulse Ox 100% on 2 lpm NC; Pain 0/10; ll1 23:37 BP 95 / 64; Pulse 82; Resp 19; Pulse Ox 100% on 2 lpm NC; Pain 0/10; ll1 MDM: 20:21 Patient medically screened. pm1 22:17 Data reviewed: vital signs. Data interpreted: Pulse oximetry: on room air is 97 %. pm1 Interpretation: normal. Counseling: I had a detailed discussion with the patient and/or guardian regarding: the historical points, exam findings, and any diagnostic results supporting the discharge/admit diagnosis, lab results, radiology results, the need for further work-up and treatment in the hospital. 22:42 ED course: present in the room. She believes that he was shocked by his pm1 defibrillator. Will interrogate his defibrillator . 22:51 Physician consultation: Faraz Dubon MD was called at 22:49, was contacted at 22:49, pm1 regarding consult, patient's condition, and will see patient tomorrow, Lovenox dosage once in ER. Told him that I will interrogate defibrillator. thinks a shock was deliver but patient does not recall. 23:21 ED course: Interrogation of pacer/defibrillator completed. pm1 23:32 ED course: Interrogation report: patient received 1 shock between 1- 2 AM and multiple pm1 shocks at 1830 at 40 Joules. 07/07 20:25 Order name: Basic Metabolic Panel; Complete Time: 22:06 pm1 07/07 20:25 Order name: CBC with Diff pm1 07/07 20:25 Order name: LFT's; Complete Time: 22:06 pm1 07/07 20:25 Order name: Magnesium; Complete Time: 22:06 pm1 07/07 20:25 Order name: NT PRO-BNP; Complete Time: 22:06 pm1 07/07 20:25 Order name: PT-INR; Complete Time: 22:05 pm1 07/07 20:25 Order name: Troponin (emerg Dept Use Only); Complete Time: 22:06 pm1 07/07 20:25 Order name: XRAY Chest (1 view) pm1 07/07 21:20 Order name: CBC with Automated Diff; Complete Time: 21:23 EDMS 07/07 20:25 Order name: EKG; Complete Time: 20:27 pm1 07/07 20:25 Order name: Cardiac monitoring; Complete Time: 21:15 pm1 07/07 20:25 Order name: EKG - Nurse/Tech; Complete Time: 21:03 pm1 07/07 20:25 Order name: IV Saline Lock; Complete Time: 20:51 pm1 07/07 20:25 Order name: Labs collected and sent; Complete Time: 20:51 pm1 07/07 20:25 Order name: O2 Per Protocol; Complete Time: 20:51 pm1 07/07 20:25 Order name: O2 Sat Monitoring; Complete Time: 20:51 pm1 07/07 22:47 Order name: Misc. Order: Interrogate defibrillator; Complete Time: 23:37 pm1 Administered Medications: 21:16 Drug: NS 0.9% 500 ml Route: IV; Rate: bolus; Site: left forearm; ll1 22:50 Follow up: Response: No adverse reaction; RASS: Alert and Calm (0); IV Status: ll1 Completed infusion; IV Intake: 500ml 21:17 Drug: Zofran (Ondansetron) 4 mg Route: IVP; Site: left forearm; ll1 22:51 Follow up: Response: No adverse reaction; Nausea is decreased ll1 22:42 Drug: Potassium Effervescent Tablet 50 mEq Route: PO; ll1 22:51 Follow up: Response: No adverse reaction; RASS: Alert and Calm (0) ll1 22:42 Drug: Potassium Chloride 20 mEq Route: IV; Rate: 25 ml/hr; Site: left forearm; ll1 23:43 Follow up: Response: No adverse reaction; Still infusing upon admission to room 431 ll1 22:43 Drug: Lovenox 1 mg/kg Route: Sub-Q; Site: right lower abdomen; ll1 22:52 Follow up: Response: No adverse reaction ll1 22:43 Drug: Aspirin Chewable Tablet 324 mg Route: PO; ll1 22:52 Follow up: Response: No adverse reaction ll1 Disposition: 07/08 00:02 Co-signature as Attending Physician, Felipe Yao MD. pkl Disposition: 07/08/19 22:19 Hospitalization ordered by Ruiz Cueto for Inpatient Admission. Preliminary diagnosis are Non-ST elevation (NSTEMI) myocardial infarction, Hypokalemia. - Bed requested for Telemetry/MedSurg (Inpatient). - Status is Inpatient Admission. ll1 - Condition is Fair. - Problem is new. - Symptoms have improved. Signatures: Dispatcher [employer] EDMS Felipe Yao MD MD pkl Sharon Clemons RN RN cg Marinas, Patrick, NP BONING ROOM WORKER pm1 Griffin Dee, RN RN ll1 Corrections: (The following items were deleted from the chart) 07/07 23:02 22:19 Hospitalization Ordered by A Rom JARQUIN for Inpatient Admission. Preliminary cg diagnosis is Non-ST elevation (NSTEMI) myocardial infarction; Hypokalemia. Bed requested for Telemetry/MedSurg (Inpatient). Status is Inpatient Admission. Condition is Fair. Problem is new. Symptoms have improved. pm1 23:42 23:02 07/08/2019 22:19 Hospitalization Ordered by A Rom JARQUIN for Inpatient Admission. ll1 Preliminary diagnosis is Non-ST elevation (NSTEMI) myocardial infarction; Hypokalemia. Bed requested for Telemetry/MedSurg (Inpatient). Status is Inpatient Admission. Condition is Fair. Problem is new. Symptoms have improved. cg
[2019-07-08] MEDS ORDERED: POTASSIUM 25 MEQ EFFERV TAB ONE (22:28)
[2019-07-08] MEDS ORDERED: ENOXAPARIN 100 MG/ML SYR SQ ONE (22:28)
[2019-07-08] MEDS ORDERED: ASPIRIN 81 MG CHEWABLE TABLET ONE (22:28)
[2019-07-08] MEDS ORDERED: KCL 20 MEQ/100 mL IVPB 20 MEQ/100 ML BAG IV ONE (22:29)
[2019-07-09] MEDS ORDERED: ONDANSETRON 4 MG/2 ML VIAL IV PRN (00:15)
[2019-07-09 01:06] VITALS: BMI 25.7
[2019-07-09 06:01] LABS: Absolute Lymphocytes (CBC) 0.6 K/uL (0.7-4.9); Basophils % 0.2 % (0-1.3); Lymphocytes % 5.1 % (15.3-44.8); MPV 9.4 fL (7.6-11.3); RBC Red Blood Cell Count 3.37 M/uL (4.33-5.43)
[2019-07-09 06:31] LABS: Potassium 3.3 mmol/L (3.5-5.1)
[2019-07-09 06:34] LABS: Troponin I 4.69 ng/mL (0.0-0.045)
--- NOTE | 2019-07-09 07:05 | RAD REPORT ---
EXAM DESCRIPTION: RAD - Chest Single View - 07/08/2019 9:32 pm CLINICAL HISTORY: Nausea, COPD, prior lobectomy, hypertension, prostate cancer COMPARISON: Portable June 30, portable June 21 TECHNIQUE: AP portable chest image was obtained 07/08/2019 9:32 pm . FINDINGS: Lung volumes are low compared to prior examination. This accentuates a baseline lung paren chymal pattern. Early infiltrates are potentially masked. Currently no dense consolidation or mass le sions seen. The small left base nodular density seen June 21 is not identifiable. This may have been a nipple shadow. This is potentially obscured by the low lung volumes. Once fully recovered from the current clinical presentation, a follow-up two-view chest examination with good inspiration would be suggested to assure no left base nodule. A nipple marker could be used during that examination. Cardiomegaly is present similar to comparison. Vasculature is accentuated by shallow inspiration. De fibrillator is in place. No pneumothorax or large pleural effusions seen. Minimal pleural effusions c ould be present. No acute aortic findings suspected. IMPRESSION: Limited portable examination shows mild CHF/ volume overload findings. Patient has baseline findings are accentuated by shallow inspiration. Left base nodule seen on the June 21 study was probably a nipple shadow and is not seen currently. Ho wever, today's examination is limited by portable technique and shallow inspiration. Once fully recov ered from acute symptoms, the patient is recommended to undergo a two-view chest examination with lef t nipple marker to assure no true mass lesion.
[2019-07-09] MEDS ORDERED: POTASSIUM 25 MEQ EFFERV TAB PO ONE (09:00)
[2019-07-09] MEDS: ASPIRIN EC 81 MG TAB PO SCH ×2 (09:00→09:41)
--- NOTE | 2019-07-09 10:00 | EKG ---
Test Date: 2019-07-09 Test Time: 08:42:22 Database Design Analyst: COREY MEASUREMENT RESULTS: Intervals: Rate: 82 UT: 162 QRSD: 160 QT: 474 QTc: 553 [place]: P: -27 UT: 162 QRS: -72 T: 78 INTERPRETIVE STATEMENTS: Electronic ventricular pacemaker Compared to ECG 07/08/2019 21:01:36 No significant changes Electronically Signed On 07-09-19 09:59:45 CDT by Faraz Dubon
--- NOTE | 2019-07-09 10:00 | EKG ---
Test Date: 2019-07-08 Test Time: 21:01:36 Campus Administrative Assistant: HELEN MEASUREMENT RESULTS: Intervals: Rate: 72 MS: 110 QRSD: 172 QT: 450 QTc: 492 [place]: P: -3 MS: 110 QRS: -74 T: 79 INTERPRETIVE STATEMENTS: Electronic ventricular pacemaker Compared to ECG 07/02/2019 09:10:29 No significant changes Electronically Signed On 07-09-19 09:59:54 CDT by Faraz Dubon
[2019-07-09] MEDS: SACUBITRIL/VALSARTAN 24/26 MG TAB PO SCH (11:39)
[2019-07-09] MEDS: METOPROLOL XL 25 MG TAB PO SCH (11:46)
--- NOTE | 2019-07-09 19:21 | HP ---
Date of Admission: 07/09/2019 Chief Complaint: Confusion and fainting spells. History Of Present Illness: This is an 84-year-old male patient with congestive heart failure with low ejection fraction, has not done well lately. He takes his medications as prescribed. This is his third admission in the last 1 month. Patient has been having some hallucinations and found him sitting in the bed with a blanket covering him almost to his chest area and he started telling his that there are some people in the room and he is trying to crawl out of this place before they get him. Subsequently while he was sitting in the bed, he had 2 episodes, where all of a sudden his entire body jerked and subsequently his body became very stiff and he fainted for a brief period of time. states that the second fainting episode did not last as long as the first time. EMS was called by and he was brought into emergency room and all this information is according to what the patient's told me today and patient was not able to describe any information or any details this morning when I saw him. Allergies: NO KNOWN ALLERGIES. Medications: List reviewed. Review of Systems: Cardiovascular: As mentioned above. SYSTEMS TEST TECHNICIAN: As mentioned above. All other systems reviewed and negative. Past Medical History: Significant for COPD, hypertension, hyperlipidemia, chronic systolic congestive heart failure, gastroesophageal reflux disease, chronic kidney disease stage 3, prostate cancer, anemia, depression. Past Surgical History: Cataract surgery, prostatectomy. Family History: Father of [place]. Mother had diabetes. Mother had cancer of pancreas, heart disease. Social History: Prior history of smoking, not at present time. Use of alcohol negative. Physical Examination: Vital Signs: Temperature 97.2, pulse 78, respiratory rate 18, blood pressure 92 /55, oxygen saturation 98%, height 6 feet, weight 190 pounds. General: Awake, alert, oriented, not in distress. HEENT: Head atraumatic, normocephalic. Conjunctivae nonerythematous. Sclerae white. Mouth, no thrush or edema noted. Ears/Nose, no mass, lesion, discharge noted. Neck: Supple. No JVD, lymph nodes, bruit, thyromegaly noted. Lungs: Bilateral good equal air entry. Clear to auscultation. No rhonchi. No rales. Heart: Normal heart sounds, no murmur or gallop. Abdomen: Soft, bowel sounds normal. No guarding, rigidity, tenderness, mass, hepatosplenomegaly, distention, or bruit noted. Extremities: No leg edema. No calf tenderness. Skin: No rash, ulcer, cellulitis. Lymphatics: No lymph node enlargement in neck, supraclavicular, infraclavicular region. Neuro: No focal neurological deficit. Chest: Unremarkable. External Genitalia: Deferred. Rectal: Deferred. Laboratory Data: Yesterday, white count 10.1, hemoglobin 10.9, platelets 180. This morning, white count 11.9, hemoglobin 10.3, and platelet count 198. Yesterday, sodium 142, potassium 2.6, chloride 103, bicarb 31, BUN 47, creatinine 2.23, glucose 161, ALT 400, AST 40, total bilirubin 2.5. Troponin 4.20. ProBNP 33,847. Second troponin 4.25, third troponin 4.69. This morning , sodium 142, potassium 3.3, chloride 105, bicarb 31, BUN 51, creatinine 2.31, glucose 153. Chest x-ray limited portable exam, showing mild CHF/volume overload finding. Impression: 1. Syncope. 2. Congestive heart failure, chronic, systolic. 3. Hypokalemia. 4. Chronic kidney disease stage 4. 5. Chronic obstructive pulmonary disease. 6. Hypertension. 7. Hyperlipidemia. 8. Prostate cancer. 9. Anemia due to chronic kidney disease. 10. Gastroesophageal reflux disease. 11. Depression. Plan: Admit the patient to hospital for further evaluation and management of this problem. Patient is appropriate for inpatient and is expected to spend 2 midnights in the hospital. Cardiology consultation was requested from Dr. Dubon. Home medications will be continued per order. His blood pressure is running on low side, so we are limited with medication use. Unfortunately, patient has advanced end-stage chronic systolic congestive heart failure problem and lately his overall health is declining. I had a long discussion with the patient's this evening on the phone and she understands and realizes and she in fact brought up question about hospice care and I was thinking about discussing with the patient's regarding hospice care anyway. After she brought that up, we had discussion about it. I agree with hospice care arrangements to be made. Patient's also told me that Dr. Dubon had mentioned about going to [place] to see if there is anything else they can do, but in the past, patient was seen by Dr. Julien and this was few years ago and at that time, Dr. Julien had mentioned it to patient and patient's that there is nothing much more anybody can do for his heart condition. The says that since there is nothing anybody can do, she really does not want to go to [place] and would like for us to try to help make arrangements for hospice care and I will request Social Service consultation to assist the patient and family for hospice care. Hospice diagnosis will be chronic systolic congestive heart failure. Overall, prognosis is poor. ANA/MODL Voice ID: [id number]
--- NOTE | 2019-07-09 20:08 | CON ---
Reason For Consultation: Elevated troponin. History Of Present Illness: Mr. Romero is an 84-year-old white male who was just discharged from [facility] a couple of days ago for similar situation. He has a history of coronary artery disease, CABG, defibrillator, hypertension, depression, prostate cancer, and left lower lobe lobectomy. He wa s recently discharged on a higher dose of amiodarone because of multiple AICD shocks. He came in wit h another AICD shock, confusion, elevated troponin. Denied PND, orthopnea, pedal edema, palpitation, or syncope. He denied any fever or chills. Denied any nausea, vomiting, or diaphoresis, but his wi fe stated that he has been extremely weak and confused. These symptoms have worsened ever since the shock. Past Medical History: As stated above. Allergies: NONE. Review of Systems: Negative. Social History: Negative. Family History: Negative. Medications: At home include amiodarone, Ranexa, Entresto, aspirin, Lasix, metoprolol. Physical Examination: Vital Signs: Stable. He was afebrile. He was in a paced rhythm. HEENT: Negative. Neck: Supple. No bruit. Chest: Clear. CARDIAC: Reveals a paced rhythm. No murmurs, gallops, or rubs. Abdomen: Benign. Extremities: Reveal no clubbing, cyanosis, or edema. Diagnostic Data: Showed an ejection fraction of 22% from an echocardiogram last week. Chest x-ray s howed mild volume overload. 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 He is already on amiodarone. I discussed the c ase with Electrophysiology services in [place] that suggested adding mexiletine to his regimen and pr eferably have the patient go see them for a ventricular tachycardia ablation. This was discussed wit h the family and they were not really too excited about going to [place]. Patient does not want to h ave any more invasive studies done. We will continue amiodarone at 200 mg daily. Continue mexiletin e at 150 b.i.d. and see how he does. Regarding his congestive heart failure, we will continue his La six and Entresto. As far as his coronary artery disease, he is already on metoprolol and Ranexa. We will continue aspirin. His blood pressure is well controlled. I will discuss the case further with Dr. Cueto. I will continue to follow him. ELVA/RAHDA Voice ID: [id number] Report ID: [id number]
[2019-07-09] MEDS: MEXILETINE HCL 150 MG CAP PO SCH (21:00)
[2019-07-09] MEDS: ENSURE ENLIVE 237 ML CAN PO SCH (21:34)
[2019-07-10] MEDS: AMIODARONE HCL 200 MG TAB PO SCH (08:49)
[2019-07-10] MEDS: FLUOXETINE 20 MG CAP PO SCH (08:49)
[2019-07-10] MEDS: METOPROLOL XL 25 MG TAB PO SCH (08:49)
[2019-07-10] MEDS: SACUBITRIL/VALSARTAN 24/26 MG TAB PO SCH (08:49)
[2019-07-10] MEDS: ASPIRIN EC 81 MG TAB PO SCH (08:49)
[2019-07-10] MEDS: MEXILETINE HCL 150 MG CAP PO SCH ×2 (08:50→21:00)
[2019-07-10] MEDS: ENSURE ENLIVE 237 ML CAN PO SCH ×2 (08:50→21:41)
[2019-07-10] MEDS: FUROSEMIDE 40 MG TABLET PO SCH (08:52)
--- NOTE | 2019-07-10 13:52 | PN ---
Date of Progress Note: 07/10/2019 Mr. Romero was admitted yesterday with multiple shocks for from his AICD secondary to ventricular ta chycardia. He is on amiodarone already. I discussed the case yesterday with the electrophysiology s pecialist in [place]. They recommended a ventricular tachycardia ablation, but the patient is refusi ng to have any procedure done [place], Hospice Care is being considered. He was placed on mexiletine 150 mg b.i.d. yesterday. Has not had any further arrhythmia. We will continue to follow him. I agree with his hospice care placement. The case was discussed with Dr. Cueto. ELVA/RADHA Voice ID: [id number] Report ID: [id number]
--- NOTE | 2019-07-10 21:30 | PN ---
Date of Progress Note: 07/10/2019 Subjective: Patient was seen this morning for followup. No new complaints or problems reported by t he patient, lying in bed, not in distress. Objective: Vital Signs: Reviewed. HEENT: Unremarkable. Lungs: Clear to auscultation. Heart: Sounds normal. Abdomen: Soft. Bowel sounds normal. No guarding, rigidity, tenderness, distention. Extremities: No leg edema. Impression: 1.Congestive heart failure, chronic, systolic. 2.Chronic kidney disease stage 4. Plan: We will continue current medications. Social service consultation was requested for patient t o go home with hospice care and once arrangements gets completed, our plan is to discharge him to go home with hospice care. Overall, prognosis is poor. ANA/MODL Voice ID: [id number] Report ID: [id number]
[2019-07-11 08:49] VITALS: BP 91/64; TEMP 96
[2019-07-11] MEDS: METOPROLOL XL 25 MG TAB PO SCH (09:00)
[2019-07-11] MEDS: MEXILETINE HCL 150 MG CAP PO SCH (09:00)
[2019-07-11] MEDS: AMIODARONE HCL 200 MG TAB PO SCH (09:05)
[2019-07-11] MEDS: ASPIRIN EC 81 MG TAB PO SCH (09:06)
[2019-07-11] MEDS: FLUOXETINE 20 MG CAP PO SCH (09:06)
[2019-07-11] MEDS: FUROSEMIDE 40 MG TABLET PO SCH (09:06)
[2019-07-11] MEDS: SACUBITRIL/VALSARTAN 24/26 MG TAB PO SCH (09:06)
[2019-07-11] MEDS: ENSURE ENLIVE 237 ML CAN PO SCH (09:07)
[2019-07-11 09:22] VITALS: O2SAT 93
--- NOTE | 2019-07-11 18:59 | DS ---
Date of Discharge: 07/11/2019 Disposition: Discharged to go home. Physical Examination: HEENT: Unremarkable. Lungs: Clear to auscultation. Heart: Sounds normal. Abdomen: Soft. Bowel sounds normal. No guarding, rigidity, tenderness, or distention. Extremities: No leg edema. Discharge Medications And Instructions: 1.Continue prior home medication. Medications include amiodarone 200 mg daily and mexiletine 150 mg twice a day. 2.Patient to be admitted to hospice care upon discharge and hospice medical physics teacher to take over ca re. Hospice diagnosis is chronic systolic congestive heart failure. Hospital Course: An 84-year-old male patient admitted to the hospital after he was having confusion and fainting spells. Please see dictated H and P for more information. Patient has chronic systolic congestive heart failure, has AICD in place, and he was brought in to the hospital with above-mentio alexander problem. See dictated H and P for more details. Patient was admitted to hospital with syncope. Cardiology consultation was obtained from Dr. Dubon. He added amiodarone and mexiletine. Dr. Elizondo did mention to patient's about going to [place] to see if they can do anything more than wh at we have done here for him and the patient's has decided not to pursue that. I had a long dis cussion with the patient's and we also talked about hospice care as in fact brought it up a nd I agree with hospice care. Patient is an appropriate candidate for hospice care. His overall pro gnosis is poor and Social Service was consulted to assist patient and family to make arrangements for hospice care. Once all arrangements completed today, he was discharged to go home with hospice care . Final Diagnoses: 1.Syncope. 2.Congestive heart failure, chronic, systolic. 3.Hypokalemia. 4.Chronic kidney disease stage 4. 5.Chronic obstructive pulmonary disease. 6.Hypertension. 7.Hyperlipidemia. 8.Prostate cancer. 9.Anemia due to chronic kidney disease. 10.Gastroesophageal reflux disease. 11.Depression. ANA/MODL Voice ID: [id number] Report ID: [id number]
== END 2019-07-11 11:51 | disposition hospice, home (50) | DRG 281 ==
LOC: ER 20:12 → ERHOLD 23:03 → 4TH 23:35
PROVIDERS: ADMIT Internal Medicine; ATTEND Internal Medicine
DX: I47.2 Ventricular tachycardia (principal); I21.4 Non-ST elevation (NSTEMI) myocardial infarction; I13.0 Hypertensive heart and chronic kidney disease with heart failure and stage 1 through stage 4 chronic kidney disease, or unspecified chronic kidney disease; I50.22 Chronic systolic (congestive) heart failure; N18.4 Chronic kidney disease, stage 4 (severe); I25.2 Old myocardial infarction; I25.10 Atherosclerotic heart disease of native coronary artery without angina pectoris; J44.9 Chronic obstructive pulmonary disease, unspecified; Z90.2 Acquired absence of lung [part of]; Z85.46 Personal history of malignant neoplasm of prostate; K21.9 Gastro-esophageal reflux disease without esophagitis; Z87.891 Personal history of nicotine dependence; E87.6 Hypokalemia; E78.5 Hyperlipidemia, unspecified; D63.1 Anemia in chronic kidney disease; F32.9 Major depressive disorder, single episode, unspecified; I50.84 End stage heart failure; Z95.1 Presence of aortocoronary bypass graft; Z79.899 Other long term (current) drug therapy; C61 Malignant neoplasm of prostate; Z95.810 Presence of automatic (implantable) cardiac defibrillator
CPT/HCPCS: 36415; 71045; 80048; 80076; 83735; 83880; 84484; 85025; 85610; 93005; 96361; 96372; 96374; 96375; 99285; J1650; J2405; J7040